=== PATIENT | female | born 1995 | race Caucasian/White ===

== ENCOUNTER → 2020-08-18 | Outpatient (REF) | payer BC ==
[2020-08-18 15:20] LABS: HEMOGLOBIN 11.5 g/dl (12.0-15.5); MEAN CORPUSCULAR HEMOGLOBIN 28.8 pg (27.0-33.0); MEAN CORPUSCULAR HGB CONC 32.9 g/dl (32.0-36.5); MEAN CORPUSCULAR VOLUME 87.7 fl (80.0-96.0); PLATELET COUNT, AUTOMATED 210 10^3/uL (150-450); RED BLOOD COUNT 3.99 10^6/uL (4.00-5.40); WHITE BLOOD COUNT 8.1 10^3/uL (4.0-10.0)
[2020-08-18 16:36] LABS: HEPATITIS C VIRUS ABY INDEX < 0.0 INDEX (<0.8); HIV 1&2 SCREEN CENTAUR NEGATIVE (NEGATIVE)
[2020-08-18 16:50] LABS: CHLAMYDIA DNA AMPLIFICATION NEGATIVE (NEGATIVE); GC DNA AMPLIFICATION NEGATIVE (NEGATIVE)
== END ==
LOC: M PLALAB 12:38
PROVIDERS: ATTEND Advanced Practice Midwife
DX: O99.211 Obesity complicating pregnancy, first trimester (principal); Z3A.00 Weeks of gestation of pregnancy not specified

== ENCOUNTER → 2020-08-28 | Outpatient (REF) | payer BC | LOC: M SFHCWAGY 09:41 | PROVIDERS: ATTEND Advanced Practice Midwife | DX: O99.211 Obesity complicating pregnancy, first trimester (principal) ==

== ENCOUNTER → 2020-09-02 | Outpatient (CLI) | payer BC | LOC: M PLALAB 13:10 | PROVIDERS: ATTEND Advanced Practice Midwife | DX: Z34.81 Encounter for supervision of other normal pregnancy, first trimester (principal); Z3A.00 Weeks of gestation of pregnancy not specified ==

== ENCOUNTER 2020-09-05 12:31 | Emergency (ER) | payer BC ==
[~2020-09-05] VITALS: Ht 165.1 cm; Wt 93.2 kg
[2020-09-05] MEDS ORDERED: NS 1,000 ML IV SCH (13:25)
[2020-09-05 14:02] LABS: BASO % 0.2 % (0.0-1.0); EOS % 0.4 % (0.0-3.0); HEMOGLOBIN 11.1 g/dl (12.0-15.5); LYMPH # 1.9 10^3/uL (1.5-5.0); LYMPH % 21.2 % (24.0-44.0); MEAN CORPUSCULAR HEMOGLOBIN 29.4 pg (27.0-33.0); MEAN CORPUSCULAR HGB CONC 33.6 g/dl (32.0-36.5); MEAN CORPUSCULAR VOLUME 87.3 fl (80.0-96.0); MONO # 0.5 10^3/uL (0.0-0.8); MONO % 5.7 % (2.0-8.0); NEUTROPHILS # 6.6 10^3/uL (1.5-8.5); NEUTROPHILS % 72.1 % (36.0-66.0); PLATELET COUNT, AUTOMATED 196 10^3/uL (150-450); RED BLOOD COUNT 3.78 10^6/uL (4.00-5.40); WHITE BLOOD COUNT 9.1 10^3/uL (4.0-10.0)
[2020-09-05] MEDS ORDERED: METO1TAB32 PO (14:05)
--- NOTE | 2020-09-05 14:18 | REP ---
INDICATION: preg chest pain eval for DVT COMPARISON: None. TECHNIQUE: Maldonado scale and color Doppler evaluation using linear high frequency transducer. FINDINGS: Ultrasound examination of the right and left lower extremity deep venous structures from the common femoral vein through the calf/ankle to include the peroneal, and tibial veins demonstrates normal compressibility flow and wave patterns in response to respiration and augmentation. There is no evidence for deep venous thrombosis. IMPRESSION: No evidence for deep venous thrombosis. <Electronically signed by Juan Jaimes > 09/05/20 [id number]
[2020-09-05 14:31] LABS: ALBUMIN 3.1 GM/DL (3.2-5.2); ALT/SGPT 36 U/L (12-78); BILIRUBIN,DIRECT 0.2 MG/DL (0.0-0.2); BILIRUBIN,TOTAL 0.4 MG/DL (0.2-1.0); BLOOD UREA NITROGEN 5 MG/DL (7-18); CALCIUM LEVEL 8.7 MG/DL (8.5-10.1); CARBON DIOXIDE LEVEL 23 MEQ/L (21-32); CHLORIDE LEVEL 107 MEQ/L (98-107); CK-MB VALUE MASS < 1.0 NG/ML (<3.6); CPK CREATINE PHOSPHOKINASE 30 U/L (26-192); CREATININE FOR GFR 0.44 MG/DL (0.55-1.30); FREE T4 1.31 NG/DL (0.76-1.46); GLOMERULAR FILTRATION RATE > 60.0 (>60); GLUCOSE, FASTING 74 MG/DL (70-100); MB/CK RELATIVE INDEX 3.33 (< OR =4); POTASSIUM SERUM 3.6 MEQ/L (3.5-5.1); SODIUM LEVEL 140 MEQ/L (136-145); THYROID STIMULATING HORMONE 0.247 uIU/ML (0.358-3.740); TOTAL PROTEIN 6.7 GM/DL (6.4-8.2); TROPONIN I < 0.02 NG/ML (< 0.10)
[2020-09-05 15:16] VITALS: BP 117/62
--- NOTE | 2020-09-05 20:28 | ECGEPIP ---
[facility] - ED Test Date: 2020-09-05 Pat Name: IMELDA EWING Department: Room: - Gender: Female Hspt Tutor: JOSE ANTONIO : 1995 Requested By: STEPHANIE Finney Order Number: [id number] Reading MD: Aditya Hargrove Measurements Intervals [place] Rate: 68 P: 37 WA: 156 QRS: 29 QRSD: 92 T: 20 QT: 412 QTc: 438 Interpretive Statements Normal sinus rhythm BENIGN EARLY REPOLARIZATION NONSPECIFIC T WAVE ABNORMALITY(S) NO PRIORS FOR COMPARISON Electronically Signed on 09-05-2020 20:28:11 EDT by Aditya Hargrove
== END 2020-09-05 15:35 | disposition home or self-care (01) ==
LOC: EDBD 12:31 → M ED 12:31
DX: O99.411 Diseases of the circulatory system complicating pregnancy, first trimester (principal); R00.2 Palpitations; Z3A.12 12 weeks gestation of pregnancy; Z88.6 Allergy status to analgesic agent

== ENCOUNTER → 2020-10-02 | Outpatient (REF) | payer BC ==
[~2020-10-02] MED LIST: ACET-683 PO; IRON65TA2 PO; METO1TAB32 PO; MM S100C PO; PRENTAB53 PO
== END ==
LOC: M SFHCWAGY 18:07
PROVIDERS: ATTEND Advanced Practice Midwife
DX: O99.212 Obesity complicating pregnancy, second trimester (principal); Z3A.00 Weeks of gestation of pregnancy not specified; E66.9 Obesity, unspecified

== ENCOUNTER → 2020-10-28 | Outpatient (CLI) | payer BC ==
[~2020-10-28] MED LIST changes: -ACET-683 PO; -IRON65TA2 PO; -MM S100C PO; -PRENTAB53 PO
--- NOTE | 2020-10-28 15:39 | REP ---
INDICATION: ANATOMY/MIKE 03/18/21 COMPARISON: None. TECHNIQUE: Transabdominal obstetrical ultrasound with color Doppler evaluation. FINDINGS: Examination demonstrates a single live intrauterine in cephalic presentation. motion is identified by technologist. Placenta is noted posterior and grade 1 without evidence for placenta previa or abruption. Amniotic fluid volume is normal. Cervix measures 5.2 cm in length and appears closed.. Selected gestational age: 19 weeks 6 days with MIKE 03/18/2021. Gestational age by current measurements 20 weeks 2 days with MIKE 03/15/2021. FHR equals 158 beats per minute. BPD: 4.9 cm at 20 weeks 6 days HC: 18.3 cm at 20 weeks 5 days AC: 14.5 cm at 19 weeks 6 days FL: 3.2 cm at 19 weeks 6 days HL: 3.2 cm at 20 weeks 3 days HC/AC: 1.26 Estimated weight 322 grams (50thpercentile). Anatomical assessment demonstrates normal structures including cranium, choroid plexus, cavum, cerebellum/posterior fossa, facial features, lungs, diaphragm, stomach, cord insertion/three-vessel cord, kidneys/bladder, and extremities. Limited evaluation of the heart/ventricular outflow tracts and spine due to positioning. IMPRESSION: Single live intrauterine in cephalic presentation demonstrating appropriate estimated weight. Anatomical limitations as noted above may warrant re-evaluation and follow-up. <Electronically signed by Juan Jaimes > 10/28/20 [id number]
== END ==
LOC: M WHC 13:45
PROVIDERS: ATTEND Advanced Practice Midwife
DX: O99.212 Obesity complicating pregnancy, second trimester (principal); Z3A.20 20 weeks gestation of pregnancy

== ENCOUNTER 2020-11-01 08:41 | Emergency (ER) | payer BC ==
[~2020-11-01] VITALS: Ht 165.1 cm; Wt 92.5 kg
[2020-11-01] MEDS ORDERED: PRENTAB53 PO (08:59)
--- NOTE | 2020-11-01 09:30 | REP ---
INDICATION: crush injury/pain COMPARISON: None. TECHNIQUE: AP, lateral, bilateral oblique views left wrist. FINDINGS: The carpal bones, surrounding osseous structures, soft tissues, and joint spaces are normal. There is no evidence for acute fracture or dislocation. No subcutaneous emphysema or radiodense foreign body. IMPRESSION: No acute fracture or dislocation. <Electronically signed by Juan Jaimes > 11/01/20 [id number]
[2020-11-01 11:20] VITALS: BP 112/70
== END 2020-11-01 11:22 | disposition home or self-care (01) ==
LOC: M ED 08:41
DX: S63.92XA Sprain of unspecified part of left wrist and hand, initial encounter (principal); W01.0XXA Fall on same level from slipping, tripping and stumbling without subsequent striking against object, initial encounter; Y92.009 Unspecified place in unspecified non-institutional (private) residence as the place of occurrence of the external cause; Y93.9 Activity, unspecified; Y99.9 Unspecified external cause status; Z88.6 Allergy status to analgesic agent; Z79.899 Other long term (current) drug therapy

== ENCOUNTER → 2020-11-04 | Outpatient (CLI) | payer BC ==
[~2020-11-04] MED LIST changes: +PRENTAB53 PO
[2020-11-04 17:46] LABS: FREE T4 1.09 NG/DL (0.76-1.46); THYROID STIMULATING HORMONE 0.737 uIU/ML (0.358-3.740)
== END ==
LOC: M PLALAB 15:30
PROVIDERS: ATTEND Advanced Practice Midwife
DX: R00.2 Palpitations (principal)

== ENCOUNTER → 2020-11-18 | Outpatient (CLI) | payer BC ==
--- NOTE | 2020-11-18 09:12 | REP ---
INDICATION: F/U ANATOMY COMPARISON: 10/29/2019 TECHNIQUE: Transabdominal obstetrical ultrasound with color Doppler evaluation. FINDINGS: Examination demonstrates a single live intrauterine in cephalic presentation. motion is identified by technologist. Placenta is noted posterior and grade without evidence for placenta previa or abruption. Amniotic fluid volume is normal. Cervix measures 4.9 cm in length and appears closed.. Selected gestational age: 22 weeks 6 days with MIKE 03/18/2021. Gestational age by current measurements 24 weeks 3 days with MIKE 03/07/2021. FHR equals 144 beats per minute. Estimated weight 708 grams (greater than 97thpercentile). Anatomical assessment demonstrates normal structures including heart/ventricular outflow tracts and spine. IMPRESSION: Single live intrauterine in cephalic presentation demonstrating greater than expected interval growth based on selected age. In conjunction with prior examination anatomical assessment is complete and normal. <Electronically signed by Juan Jaimes > 11/18/20 [id number]
== END ==
LOC: M WHC 08:11
PROVIDERS: ATTEND Advanced Practice Midwife
DX: Z34.92 Encounter for supervision of normal pregnancy, unspecified, second trimester (principal); Z3A.22 22 weeks gestation of pregnancy

== ENCOUNTER 2020-11-21 17:47 | Emergency (ER) | payer BC ==
[~2020-11-21] VITALS: Ht 165.1 cm; Wt 92.3 kg
[2020-11-21 18:57] LABS: BASO % 0.1 % (0.0-1.0); EOS # 0.1 10^3/uL (0.0-0.5); EOS % 0.5 % (0.0-3.0); HEMATOCRIT 29.4 % (36.0-47.0); LYMPH # 2.2 10^3/uL (1.5-5.0); LYMPH % 20.9 % (24.0-44.0); MEAN CORPUSCULAR VOLUME 88.3 fl (80.0-96.0); MONO # 0.6 10^3/uL (0.0-0.8); MONO % 5.8 % (2.0-8.0); NEUTROPHILS # 7.5 10^3/uL (1.5-8.5); NEUTROPHILS % 72.2 % (36.0-66.0); PLATELET COUNT, AUTOMATED 193 10^3/uL (150-450); RED BLOOD COUNT 3.33 10^6/uL (4.00-5.40); WHITE BLOOD COUNT 10.4 10^3/uL (4.0-10.0)
[2020-11-21 19:32] LABS: BLOOD UREA NITROGEN 6 MG/DL (7-18); CALCIUM LEVEL 8.5 MG/DL (8.5-10.1); CARBON DIOXIDE LEVEL 22 MEQ/L (21-32); CHLORIDE LEVEL 110 MEQ/L (98-107); CREATININE FOR GFR 0.39 MG/DL (0.55-1.30); FREE T4 1.09 NG/DL (0.76-1.46); GLOMERULAR FILTRATION RATE > 60.0 (>60); GLUCOSE, FASTING 86 MG/DL (70-100); MAGNESIUM LEVEL 1.9 MG/DL (1.8-2.4); POTASSIUM SERUM 3.6 MEQ/L (3.5-5.1); SODIUM LEVEL 140 MEQ/L (136-145); THYROID STIMULATING HORMONE 0.714 uIU/ML (0.358-3.740)
[2020-11-21 19:45] VITALS: BP 105/62
== END 2020-11-21 20:07 | disposition home or self-care (01) ==
LOC: M ED 17:47
DX: O99.412 Diseases of the circulatory system complicating pregnancy, second trimester (principal); R00.2 Palpitations; R00.0 Tachycardia, unspecified; Z3A.23 23 weeks gestation of pregnancy; Z88.6 Allergy status to analgesic agent; Z79.899 Other long term (current) drug therapy

== ENCOUNTER → 2020-12-16 | Outpatient (CLI) | payer BC ==
[2020-12-16 15:41] LABS: HEMATOCRIT 30.4 % (36.0-47.0); HEMOGLOBIN 10.5 g/dl (12.0-15.5); MEAN CORPUSCULAR HEMOGLOBIN 30.5 pg (27.0-33.0); MEAN CORPUSCULAR HGB CONC 34.5 g/dl (32.0-36.5); MEAN CORPUSCULAR VOLUME 88.4 fl (80.0-96.0); PLATELET COUNT, AUTOMATED 211 10^3/uL (150-450); RED BLOOD COUNT 3.44 10^6/uL (4.00-5.40); WHITE BLOOD COUNT 11.1 10^3/uL (4.0-10.0)
[2020-12-16 16:32] LABS: GC DNA AMPLIFICATION NEGATIVE (NEGATIVE)
== END ==
LOC: M LAB 11:14
PROVIDERS: ATTEND Obstetrics & Gynecology
DX: O99.212 Obesity complicating pregnancy, second trimester (principal); Z3A.00 Weeks of gestation of pregnancy not specified; E66.9 Obesity, unspecified

== ENCOUNTER 2021-01-13 21:50 | Emergency (ER) | payer BC, OTHER ==
[~2021-01-13] VITALS: Ht 165.1 cm; Wt 93.3 kg
[2021-01-13 21:52] VITALS: BP 112/71
--- OUTSIDE RECORDS SUMMARY | 2021-01-13 22:00 | CCD ---
Author Author [facility] Organization [facility] Address Unknown Phone Unavailable Care Team Providers Care Director Of Income Tax Name Role Phone Patricia DOMINGUEZ MD Unavailable Unavailable Patricia DOMINGUEZ MD Unavailable Unavailable Patricia DOMINGUEZ MD Unavailable Unavailable Patricia DOMINGUEZ MD Unavailable Unavailable Patricia DOMINGUEZ MD Unavailable Unavailable Patricia DOMINGUEZ MD Unavailable Unavailable Patricia DOMINGUEZ MD Unavailable Unavailable Patricia DOMINGUEZ MD Unavailable Unavailable Patricia DOMINGUEZ MD Unavailable Unavailable Patricia DOMINGUEZ MD Unavailable Unavailable Patricia DOMINGUEZ MD Unavailable Unavailable Patricia DOMINGUEZ MD Unavailable Unavailable Patricia DOMINGUEZ MD Unavailable Unavailable Patricia DOMINGUEZ MD Unavailable Unavailable Patricia DOMINGUEZ MD Unavailable Unavailable Patricia DOMINGUEZ MD Unavailable Unavailable Patricia DOMINGUEZ MD Unavailable Unavailable Patricia DOMINGUEZ MD Unavailable Unavailable Patricia DOMINGUEZ MD Unavailable Unavailable Patricia DOMINGUEZ MD Unavailable Unavailable Patricia DOMINGUEZ MD Unavailable Unavailable Patricia DOMINGUEZ MD Unavailable Unavailable Patricia DOMINGUEZ MD Unavailable Unavailable Patricia DOMINGUEZ MD Unavailable Unavailable Patricia DOMINGUEZ MD Unavailable Unavailable Patricia DOMINGUEZ MD Unavailable Unavailable Patricia DOMINGUEZ MD Unavailable Unavailable Patricia DOMINGUEZ MD Unavailable Unavailable ANGELICA, J DONNA HUGO Unavailable Unavailable ANGELICA, J DONNA HUGO Unavailable Unavailable ANGELICA, J DONNA HUGO Unavailable Unavailable ANGELICA, J DONNA HUGO Unavailable Unavailable ANGELICA, J DONNA HUGO Unavailable Unavailable ANGELICA, J DONNA HUGO Unavailable Unavailable ANGELICA, J DONNA HUGO Unavailable Unavailable ANGELICA, J DONNA HUGO Unavailable Unavailable ANGELICA, J DONNA HUGO Unavailable Unavailable ANGELICA, J DONNA HUGO Unavailable Unavailable ANGELICA, J DONNA HUGO Unavailable Unavailable ANGELICA, J DONNA HUGO Unavailable Unavailable ANGELICA, J DONNA HUGO Unavailable Unavailable ANGELICA, J DONNA HUGO Unavailable Unavailable ANGELICA, J DONNA HUGO Unavailable Unavailable ANGELICA, J DONNA HUGO Unavailable Unavailable ANGELICA, J DONNA HUGO Unavailable Unavailable ANGELICA, J DONNA HUGO Unavailable Unavailable ANGELICA, J DONNA HUGO Unavailable Unavailable ANGELICA, J DONNA HUGO Unavailable Unavailable ANGELICA, J DONNA HUGO Unavailable Unavailable ANGELICA, J DONNA HUGO Unavailable Unavailable ANGELICA, J DONNA HUGO Unavailable Unavailable ANGELICA, J DONNA HUGO Unavailable Unavailable ANGELICA, J DONNA HUGO Unavailable Unavailable ANGELICA, J DONNA HUGO Unavailable Unavailable ANGELICA, J DONNA HUGO Unavailable Unavailable ANGELICA, J DONNA HUGO Unavailable Unavailable ANGELICA, J DONNA HUGO Unavailable Unavailable ANGELICA, J DONNA HUGO Unavailable Unavailable ANGELICA, J DONNA HUGO Unavailable Unavailable ANGELICA, J DONNA HUGO Unavailable Unavailable ANGELICA, J DONNA HUGO Unavailable Unavailable ANGELICA, J DONNA HUGO Unavailable Unavailable ANGELICA, J DONNA HUGO Unavailable Unavailable ANGELICA, J DONNA HUGO Unavailable Unavailable ANGELICA, J DONNA HUGO Unavailable Unavailable ANGELICA, J DONNA HUGO Unavailable Unavailable ANGELICA, J DONNA HUGO Unavailable Unavailable ANGELICA, J DONNA HUGO Unavailable Unavailable ANGELICA, J DONNA UHGO Unavailable Unavailable ANGELICA, Patricia THOMPSON MD Unavailable Unavailable ANGELICA, J DONNA HUGO Unavailable Unavailable ANGELICA, J DONNA HUGO Unavailable Unavailable ANGELICA, J DONNA HUGO Unavailable Unavailable ANGELICA, J DONNA HUGO Unavailable Unavailable ANGELICA, Patricia THOMPSON MD Unavailable Unavailable ANGELICA, Patricia THOMPSON MD Unavailable Unavailable ANGELICA, Patricia THOMPSON MD Unavailable Unavailable ANGELICA, Patricia THOMPSON MD Unavailable Unavailable Sumanth Jo MD Unavailable Unavailable Sumanth Jo MD Unavailable Unavailable Sumanth Jo MD Unavailable Unavailable Sumanth Jo MD Unavailable Unavailable Deysi, Magendra MD Unavailable Unavailable Deysi, Magendra MD Unavailable Unavailable Deysi, Magendra MD Unavailable Unavailable Deysi, Magendra MD Unavailable Unavailable DeysiMeagan mezandra MD Unavailable Unavailable DeysiMeaganndra MD Unavailable Unavailable DeysiMeaganndra MD Unavailable Unavailable Deysi, Magendra MD Unavailable Unavailable Deysi, Magendra MD Unavailable Unavailable Deysi, Magendra MD Unavailable Unavailable Deysi, Magendra MD Unavailable Unavailable Deysi, Magendra MD Unavailable Unavailable Deysi, Meaganndra MD Unavailable Unavailable Deysi, Magendra MD Unavailable Unavailable Deysi, Magendra MD Unavailable Unavailable Deysi, Magendra MD Unavailable Unavailable Deysi, Meaganndra MD Unavailable Unavailable DeysiMeagan mezandra MD Unavailable Unavailable DeysiMeagan mezandra MD Unavailable Unavailable DeysiMeagan mezandra MD Unavailable Unavailable DeysiMeagan mezandra MD Unavailable Unavailable Deysi, Magendra MD Unavailable Unavailable DeysiMeagan mezandra MD Unavailable Unavailable DeysiMeagan mezandra MD Unavailable Unavailable DeysiMeagan mezandra MD Unavailable Unavailable DeysiMeagan mezandra MD Unavailable Unavailable DeysiMeagan mezandra MD Unavailable Unavailable DeysiMeagan mezandra MD Unavailable Unavailable DeysiMeagan mezandra MD Unavailable Unavailable DeysiMeagan mezandra MD Unavailable Unavailable DeysiMeagan mezandra MD Unavailable Unavailable DeysiMeagan mezandra MD Unavailable Unavailable DeysiMeagan mezandra MD Unavailable Unavailable DeysiMeagan mezandra MD Unavailable Unavailable DeysiMeagan mezandra MD Unavailable Unavailable DeysiMeagan mezandra MD Unavailable Unavailable Deysi, Meaganndra MD Unavailable Unavailable Deysi, Meaganndra MD Unavailable Unavailable Deysi, Magendra MD Unavailable Unavailable Deysi, Magendra MD Unavailable Unavailable Deysi, Magendra MD Unavailable Unavailable [place], Janna DO Unavailable Unavailable [place], Janna DO Unavailable Unavailable [place], Janna DO Unavailable Unavailable [place], Janna DO Unavailable Unavailable Nikki, M Sina DO Unavailable Unavailable Nikki, M Sina DO Unavailable Unavailable Nikki, M Sina DO Unavailable Unavailable Nikki, M Sina DO Unavailable Unavailable Nikki, M Sina DO Unavailable Unavailable Nikki, M Sina DO Unavailable Unavailable Nikki, M Sina DO Unavailable Unavailable Nikki, M Sina DO Unavailable Unavailable Nikki, M Sina DO Unavailable Unavailable Nikki, Temo Andino DO Unavailable Unavailable Nikki, Temo Anneel DO Unavailable Unavailable Nikki, Temo Anneel DO Unavailable Unavailable Nikki, Temo Sina DO Unavailable Unavailable Nikki, Temo Sina DO Unavailable Unavailable Nikki, Temo Sina DO Unavailable Unavailable Nikki, Temo Sina DO Unavailable Unavailable Gina Rivera, GALLERY OR MUSEUM GUIDE-C Unavailable Unavailable Maring, Bereket PA Unavailable Unavailable Maring, Bereket PA Unavailable Unavailable Maring, Bereket PA Unavailable Unavailable Maring, Bereekt PA Unavailable Unavailable Maring, Bereket PA Unavailable Unavailable Maring, Bereket PA Unavailable Unavailable Maring, Bereket PA Unavailable Unavailable Maring, Bereket PA Unavailable Unavailable Maring, Bereket PA Unavailable Unavailable Maring, Bereket PA Unavailable Unavailable Maring, Bereket PA Unavailable Unavailable Maring, Bereket PA Unavailable Unavailable Maring, Bereket PA Unavailable Unavailable Maring, Bereket PA Unavailable Unavailable Maring, Bereket PA Unavailable Unavailable Maring, Bereket PA Unavailable Unavailable Sascha Hoffman MD Unavailable Unavailable Sascha Hoffman MD Unavailable Unavailable NOSTROM, JUVE ER MEDICAL TECHNICIAN Unavailable Unavailable NOSTROM, JUVE ER MEDICAL TECHNICIAN Unavailable Unavailable NOSTROM, JUVE ER MEDICAL TECHNICIAN Unavailable Unavailable NOSTROM, JUVE ER MEDICAL TECHNICIAN Unavailable Unavailable NOSTROM, JUVE ER MEDICAL TECHNICIAN Unavailable Unavailable NOSTROM, JUVE ER MEDICAL TECHNICIAN Unavailable Unavailable NOSTROM, JUVE ER MEDICAL TECHNICIAN Unavailable Unavailable NOSTROM, JUVE ER MEDICAL TECHNICIAN Unavailable Unavailable NOSTROM, JUVE ER MEDICAL TECHNICIAN Unavailable Unavailable NOSTROM, JUVE ER MEDICAL TECHNICIAN Unavailable Unavailable NOSTROM, JUVE ER MEDICAL TECHNICIAN Unavailable Unavailable NOSTROM, JUVE ER MEDICAL TECHNICIAN Unavailable Unavailable NOSTROM, JUVE ER MEDICAL TECHNICIAN Unavailable Unavailable Zeynep GARAY MD Unavailable Unavailable Zeynep GARAY MD Unavailable Unavailable Zeynep GARAY MD Unavailable Unavailable Zeynep GARAY MD Unavailable Unavailable Zeynep GARAY MD Unavailable Unavailable Zeynep GARAY MD Unavailable Unavailable Zeynep GARAY MD Unavailable Unavailable Zeynep GARAY MD Unavailable Unavailable Zeynep GARAY MD Unavailable Unavailable Zeynep GARAY MD Unavailable Unavailable Zeynep GARAY MD Unavailable Unavailable Zeynep GARAY MD Unavailable Unavailable Zeynep GARAY MD Unavailable Unavailable Zeynep GARAY MD Unavailable Unavailable Zeynep GARAY MD Unavailable Unavailable Zeynep GARAY MD Unavailable Unavailable Zeynep GARAY MD Unavailable Unavailable Zeynep GARAY MD Unavailable Unavailable Zeynep GARAY MD Unavailable Unavailable Zeynep GARAY MD Unavailable Unavailable Zeynep GARAY MD Unavailable Unavailable Zeynep GARAY MD Unavailable Unavailable Zeynep GARAY MD Unavailable Unavailable Zeynep GARAY MD Unavailable Unavailable Feola, T Xuan PA Unavailable Unavailable Feola, T Xuan PA Unavailable Unavailable Feola, T Xuan PA Unavailable Unavailable Feola, T Xuan PA Unavailable Unavailable Feola, T Xuan PA Unavailable Unavailable Feola, T Xuan PA Unavailable Unavailable Feola, T Xuan PA Unavailable Unavailable Feola, T Xuan PA Unavailable Unavailable Feola, T Xuan PA Unavailable Unavailable Feola, T Xuan PA Unavailable Unavailable Feola, T Xuan PA Unavailable Unavailable Feola, T Xuan PA Unavailable Unavailable Feola, T Xuan PA Unavailable Unavailable Feola, T Xuan PA Unavailable Unavailable Feola, T Xuan PA Unavailable Unavailable Feola, T Xuan PA Unavailable Unavailable Feola, T Xuan PA Unavailable Unavailable Feola, T Xuan PA Unavailable Unavailable Feola, T Xuan PA Unavailable Unavailable Feola, T Xuan PA Unavailable Unavailable Feola, T Xuan PA Unavailable Unavailable Feola, T Xuan PA Unavailable Unavailable Feola, T Xuan PA Unavailable Unavailable Feola, T Xuan PA Unavailable Unavailable Feola, T Xuan PA Unavailable Unavailable Feola, T Xuan PA Unavailable Unavailable Feola, T Xuan PA Unavailable Unavailable Feola, T Xuan PA Unavailable Unavailable Feola, T Xuan PA Unavailable Unavailable Feola, T Xuan PA Unavailable Unavailable Feola, T Xuan PA Unavailable Unavailable Feola, T Xuan PA Unavailable Unavailable Feola, T Xuan PA Unavailable Unavailable Feola, T Xuan PA Unavailable Unavailable Feola, T Xuan PA Unavailable Unavailable Feola, T Xuan PA Unavailable Unavailable Feola, T Xuan PA Unavailable Unavailable Feola, T Xuan PA Unavailable Unavailable Feola, T Xuan PA Unavailable Unavailable Feola, T Xuan PA Unavailable Unavailable Feola, T Xuan PA Unavailable Unavailable Frank Arora MD Unavailable Unavailable Frank Arora MD Unavailable Unavailable Frank Arora MD Unavailable Unavailable Frank Arora MD Unavailable Unavailable Frank Arora MD Unavailable Unavailable Frank Arora MD Unavailable Unavailable CicheFrank paige MD Unavailable Unavailable CichettFrank gonzalez MD Unavailable Unavailable CichettFrank gonzalez MD Unavailable Unavailable CichettFrank gonzalez MD Unavailable Unavailable CichettFrank gonzalze MD Unavailable Unavailable CichettFrank gonzalez MD Unavailable Unavailable CichettFrank gonzalez MD Unavailable Unavailable CichettFrank gonzalez MD Unavailable Unavailable CichettFrank gonzalez MD Unavailable Unavailable CichettFrank gonzalez MD Unavailable Unavailable CichettFrank gonzalez MD Unavailable Unavailable CichettFrank gonzalez MD Unavailable Unavailable CichettFrank gonzalez MD Unavailable Unavailable CichettFrank gonzalez MD Unavailable Unavailable CichettFrank gonzalez MD Unavailable Unavailable CichettFrank gonzalez MD Unavailable Unavailable CichettFrank gonzalez MD Unavailable Unavailable CichettFrank gonzalez MD Unavailable Unavailable CichettFrank gonzalez MD Unavailable Unavailable CichettFrank gonzalez MD Unavailable Unavailable CichettFrank gonzalez MD Unavailable Unavailable CichettFrank gonzalez MD Unavailable Unavailable CichettFrank gonzalez MD Unavailable Unavailable CicheFrank paige MD Unavailable Unavailable CichettFrank gonzalez MD Unavailable Unavailable CichettFrank gonzalez MD Unavailable Unavailable CichettFrank gonzalez MD Unavailable Unavailable CichettFrank gonzalez MD Unavailable Unavailable CichettFrank gonzalez MD Unavailable Unavailable CichettFrank gonzalez MD Unavailable Unavailable CichettFrank gonzalez MD Unavailable Unavailable CichettFrank gonzalez MD Unavailable Unavailable WITTY-CAMRNY, ARMIDA Unavailable Unavailable WITTY-CAMRYN, ARMIDA Unavailable Unavailable WITTY-CAMRYN, ARMIDA Unavailable Unavailable WITTY-CAMRYN, ARMIDA Unavailable Unavailable WITTY-CAMRYN, ARMIDA Unavailable Unavailable WITTY-CAMRYN, ARMIDA Unavailable Unavailable WITTY-CAMRYN, ARMIDA Unavailable Unavailable WITTY-CAMRYN, ARMIDA Unavailable Unavailable WITTY-CAMRYN, ARMIDA Unavailable Unavailable WITTY-CAMRYN, ARMIDA Unavailable Unavailable WITTY-CAMRYN, ARMIDA Unavailable Unavailable WITTY-CAMRYN, ARMIDA Unavailable Unavailable WITTY-CAMRYN, ARMIDA Unavailable Unavailable WITTY-CAMRYN, ARMIDA Unavailable Unavailable WITTY-CAMRYN, ARMIDA Unavailable Unavailable WITTY-CAMRYN, ARMIDA Unavailable Unavailable WITTY-CAMRYN, ARMIDA Unavailable Unavailable WITTY-CAMRYN ARIMDA Unavailable Unavailable WITTY-CAMRYN ARMIDA Unavailable Unavailable WITTY-CAMRYN, ARMIDA Unavailable Unavailable ARMIDA MENDOZA Unavailable Unavailable Marissa Nicholson MD Unavailable Unavailable Marissa Nicholson MD Unavailable Unavailable Marissa Nicholson MD Unavailable Unavailable Marissa Nicholson MD Unavailable Unavailable Marissa Nicholson MD Unavailable Unavailable Marissa Nicholson MD Unavailable Unavailable Marissa Nicholson MD Unavailable Unavailable Marissa Nicholson MD Unavailable Unavailable Marissa Nicholson MD Unavailable Unavailable Marissa Nicholson MD Unavailable Unavailable Marissa Nicholson MD Unavailable Unavailable Marissa Nicholson MD Unavailable Unavailable Marissa Nicholson MD Unavailable Unavailable Marissa Nicholson MD Unavailable Unavailable Marissa Nicholson MD Unavailable Unavailable Marissa Nicholson MD Unavailable Unavailable Marissa Nicholson MD Unavailable Unavailable Marissa Nicholson MD Unavailable Unavailable Marissa Nicholson MD Unavailable Unavailable Marissa Nicholson MD Unavailable Unavailable Marissa Nicholson MD Unavailable Unavailable Marissa Nicholson MD Unavailable Unavailable Marissa Nicholson MD Unavailable Unavailable Marissa Nicholson MD Unavailable Unavailable Marissa Nicholson MD Unavailable Unavailable Marissa Nicholson MD Unavailable Unavailable Marissa Nicholson MD Unavailable Unavailable Marissa Nicholson MD Unavailable Unavailable Marissa Nicholson MD Unavailable Unavailable Marissa Nicholson MD Unavailable Unavailable Marissa Nicholson MD Unavailable Unavailable Marissa Nicholson MD Unavailable Unavailable Marissa Nicholson MD Unavailable Unavailable Marissa Nicholson MD Unavailable Unavailable Marissa Nicholson MD Unavailable Unavailable Marissa Nicholson MD Unavailable Unavailable Marissa Nicholson MD Unavailable Unavailable Marissa Nicholson MD Unavailable Unavailable Marissa Nicholson MD Unavailable Unavailable Marissa Nicholson MD Unavailable Unavailable Marissa Nicholson MD Unavailable Unavailable Marissa Nicholson MD Unavailable Unavailable Marissa Nicholson MD Unavailable Unavailable Marissa Nicholson MD Unavailable Unavailable Marissa Nicholson MD Unavailable Unavailable Marissa Nicholson MD Unavailable Unavailable Marissa Nicholson MD Unavailable Unavailable Marissa Nicholson MD Unavailable Unavailable Marissa Nicholson MD Unavailable Unavailable Marissa Nicholson MD Unavailable Unavailable Marissa Nicholson MD Unavailable Unavailable Marissa Nicholson MD Unavailable Unavailable Marissa Nicholson MD Unavailable Unavailable Marissa Nicholson MD Unavailable Unavailable Marissa Nicholson MD Unavailable Unavailable Marissa Nicholson MD Unavailable Unavailable Marissa Nicholson MD Unavailable Unavailable Marissa Nicholson MD Unavailable Unavailable Marissa Nicholson MD Unavailable Unavailable Sienkiewycz, L Gina ER MEDICAL TECHNICIAN Unavailable Unavailable Sienkiewycz, L Gina ER MEDICAL TECHNICIAN Unavailable Unavailable Sienkiewycz, L Gina ER MEDICAL TECHNICIAN Unavailable Unavailable Sienkiewycz, L Gina ER MEDICAL TECHNICIAN Unavailable Unavailable Sienkiewycz, L Gina ER MEDICAL TECHNICIAN Unavailable Unavailable Sienkiewycz, L Gina ER MEDICAL TECHNICIAN Unavailable Unavailable Sienkiewycz, L Gina ER MEDICAL TECHNICIAN Unavailable Unavailable Franklinton, V BARBARA PA-C Unavailable Unavailable Celso, V BARBARA PA-C Unavailable Unavailable Franklinton, V BARBARA PA-C Unavailable Unavailable Franklinton, V BARBARA PA-C Unavailable Unavailable Franklinton, V BARBARA PA-C Unavailable Unavailable Franklinton, V BARBARA PA-C Unavailable Unavailable Franklinton, V BARBARA PA-C Unavailable Unavailable Franklinton, V BARBARA PA-C Unavailable Unavailable Franklinton, V BARBARA PA-C Unavailable Unavailable Celso, V BARBARA PA-C Unavailable Unavailable Celso, V BARBARA PA-C Unavailable Unavailable Franklinton, V BARBARA PA-C Unavailable Unavailable Franklinton, V BARBARA PA-C Unavailable Unavailable Franklinton, V BARBARA PA-C Unavailable Unavailable Patricia ANDRE DO Unavailable Unavailable Patricia ANDRE DO Unavailable Unavailable Patricia ANDRE DO Unavailable Unavailable Patricia ANDRE DO Unavailable Unavailable Patricia ANDRE DO Unavailable Unavailable Patricia ANDRE DO Unavailable Unavailable Patricia ANDRE DO Unavailable Unavailable Patricia ANDRE DO Unavailable Unavailable Patricia ANDRE DO Unavailable Unavailable Patricia ANDRE DO Unavailable Unavailable Patricia ANDRE DO Unavailable Unavailable Re-disclosure Warning The records that you are about to access may contain information from federally-assisted alcohol or drug abuse programs. If such information is present, then the following federally mandated warning applies: This information has been disclosed to you from records protected by federal confidentiality rules (42 CFR part 2). The federal rules prohibit you from making any further disclosure of this information unless further disclosure is expressly permitted by the written consent of the person to whom it pertains or as otherwise permitted by 42 CFR part 2. A general authorization for the release of medical or other information is NOT sufficient for this purpose. The Federal rules restrict any use of the information to criminally investigate or prosecute any alcohol or drug abuse patient.The records that you are about to access may contain highly sensitive health information, the redisclosure of which is protected by Article 27-F of the [facility] Public Health law. If you continue you may have access to information: Regarding HIV / AIDS; Provided by facilities licensed or operated by the [facility] Office of Mental Health; or Provided by the [facility] Office for People With Developmental Disabilities. If such information is present, then the following [facility] mandated warning applies: This information has been disclosed to you from confidential records which are protected by state law. State law prohibits you from making any further disclosure of this information without the specific written consent of the person to whom it pertains, or as otherwise permitted by law. Any unauthorized further disclosure in violation of state law may result in a fine or [place] [facility] sentence or both. A general authorization for the release of medical or other information is NOT sufficient authorization for further disc losure. Allergies and Adverse Reactions Type Description Substance Reaction Status Data Source(s ) Propensity to adverse reactions NSAIDS Nsaids Acti ve [facility] Encounters Encounter Providers Location Date Indications Data Source(s ) Outpatient Attender: Marissa SCHROEDER.ANN MARIE-SJP.ANN MARIE 11/06 02:50:21 PM EDT - 11/26/2020 08:17:13 AM EDT [facility] Outpatient Attender: BAY GARAY MD 11/14 06:47:30 PM EDT - 11/14/2020 07:39:57 PM EDT [facility] ([facility] ) Outpatient 11/01/2020 08:26:15 AM EDT [facility] ([facility]) Outpatient Attender: BARBARA GARAYANN MARIE-SJP.ANN MARIE 12/2020 12:00:00 AM EDT - 10/14/2020 01:40:11 PM EDT [facility] Outpatient Referrer: Marissa GARAYCT-SJP.SYR 09/05 12:00:00 AM EDT [facility] Outpatient Attender: Marissa Nicholson MDConsultant: Paul GARAYANN MARIE-SJP.ANN MARIE 09/25/2020 09:09:37 AM EDT - 09/25/2020 10:28:26 AM EDT [facility] Outpatient Attender: Bereket ABDUL 09/25/19 03:07:19 PM EDT - 09/24/2020 03:41:07 PM EDT [facility] ([facility] ) Outpatient Attender: BAY GARAY MD 08/22 04:16:27 PM EDT - 08/22/2020 04:55:18 PM EDT [facility] ([facility] ) Outpatient Attender: Raad Arora MD SURG-NPLAB 07/31/2020 12:43:00 PM EDT [facility] Outpatient Attender: Raad Arora MD SURG-NPLAB 07/31/2020 12:43:00 PM EDT [facility] Outpatient [address] [place] [address] [phone] 07/31/2020 12:00:00 AM EDT [facility]CW[facility] ([facility]) Outpatient [address] [place] [address] [phone] 07/31/2020 12:00:00 AM EDT eCW1 ([facility]) Outpatient [address] [place] [address] [phone] 07/22/2020 12:00:00 AM EDT eCW1 ([facility]) Outpatient Attender: uXan ABDUL 021 02:29:45 PM EDT - 07/03/2020 03:06:52 PM EDT [facility] ([facility] ) Outpatient [address] [place] [address] 1 [phone] 07/02/2020 12:00:00 AM EDT eCW1 ([facility]) (TELEFU) TELEFU [address] [place] [address] 1 [phone] 07/01/2020 12:00:00 AM EDT eCW1 ([facility]) Outpatient Attender: ABDULAZIZ ANDRE DO ED-LAB 06/03/2020 01 :03:00 PM EDT PRE EMPLOYMENT [facility] PRE EMPLOYMENT Outpatient [address] [place] [address] 1 [phone] 05/21/2020 12:00:00 AM EDT eCW1 ([facility]) Outpatient [address] [place] [address] 1 [phone] 04/22/2020 12:00:00 AM EST eCW1 ([facility]) (TELEFU) TELEFU [address] [place] [address] 1 [phone] 03/21/2020 12:00:00 AM EST eCW1 ([facility]) Outpatient [address] [place] [address] 1 [phone] 03/21/2020 12:00:00 AM EST eCW1 ([facility]) Outpatient Attender: Sina Jordan DO CPSCAORT-COVVACCPH 05:38:00 PM EST 2ND COVID VACCINE PFIZER [facility] 2ND COVID VACCINE PFIZER Outpatient [address] [place] [address] 1 [phone] 03/10/2020 12:00:00 AM EST eCW1 ([facility]) Outpatient Attender: Sumanth Jo MD [place] [facility] 08:45:00 AM EST [facility] (Sumanth Jo MD) Emergency Attender: JUVE CASTILLO ER MEDICAL TECHNICIAN Attender: Molly Hoffman MDAttender: Janna Sheriff DO CPSCAORT-ED 03/03/2020 04:32:00 PM EST - 03/03/2020 07:25:00 PM EST ALLERGIC REACTION [facility] ALLERGIC REACTION Patient discharged. Outpatient Attender: Sina Jordan DO CPSCAORT-COVVACCPH 05:21:00 PM EST 1ST COVID VACCINE PFIZER [facility] 1ST COVID VACCINE PFIZER Outpatient [address], [place] 1 [phone] 02/07/2020 12:00:00 AM EST eCW1 ([facility]) Outpatient Attender: HARRISON Galvan nder: Gina Rivera NP CPSCAORT-LABMASS 01/28/2020 03:07:00 PM EST EXPOSURE [facility] EXPOSURE Outpatient Attender: Gina Rivera ER MEDICAL TECHNICIAN SURG-NPLAB 01/28/2020 01:28:00 PM EST [facility] P Attender: Gina Rivera ER MEDICAL TECHNICIAN SURG-NPLAB 01/28/2020 12:0 0:00 AM EST [facility] Outpatient [address], [place] [phone] 01/28/2020 12:00:00 AM EST eCW1 ([facility]) Outpatient [address] [place] [address] 1 [phone] 01/28/2020 12:00:00 AM EST eCW1 ([facility]) Outpatient [address] [place] [address] 1 [phone] 01/28/2020 12:00:00 AM EST eCW1 ([facility]) [facility] [address] [phone] 01/28/2020 12:00:00 AM EST eCW1 ([facility]) Outpatient [address] [place] [address] 1 [phone] 01/17/2020 12:00:00 AM EST eCW1 ([facility]) Outpatient [address] [place] [address] 1 [phone] 12/06/2019 12:00:00 AM EDT eCW1 ([facility]) Outpatient [address] [place] [address] 1 [phone] 11/28/2019 12:00:00 AM EDT eCW1 ([facility]) Emergency Attender: Janna Sheriff DO CPSCAORT-ED 020 11:39:00 AM EDT - 11/26/2019 04:28:00 PM EDT PALPITATIONS [facility] PALPITATIONS Patient discharged. Outpatient [address], [place] [phone] 11/26/2019 12:00:00 AM EDT eCW1 ([facility]) Outpatient Attender: HARRISON Galvan nder: Gina Rivera NP CPSCAORT-LABMASS 08/15/2019 01:13:00 PM EDT - 08/15/2019 01:14:00 PM ED T COVID- 19 SCREENING [facility] COVID-19 SCREENING Patient discharged. Outpatient Attender: ARMIDA MENDOZAAttender: Ailyn Rivera NP [email or web address].LSS 08/15/2019 11:27:[address] [facility] Outpatient Attender: DONNA DOMINGUEZ MD CPSCAORT-LABPNP 07/06 06:16:00 PM EDT COVID 19 SCREENING [facility] COVID 19 SCREENING Outpatient Attender: DONNA DOMINGUEZ MD CPSCAORT-LABPNP 07/05 10:02:00 PM EDT COVID-19 SCREENING [facility] COVID-19 SCREENING Immunizations Vaccine Date Status Description Data Source(s) Pfizer Covid-19 03/19/2020 08:13:00 AM EST completed eCW1 ([facility]) Pfizer Covid-19 03/19/2020 08:13:00 AM EST completed eCW1 ([facility]) Pfizer Covid-19 03/19/2020 08:13:00 AM EST completed eCW1 ([facility]) Pfizer Covid-19 03/19/2020 08:13:00 AM EST completed eCW1 ([facility]) Pfizer Covid-19 03/19/2020 08:13:00 AM EST completed eCW1 ([facility]) Pfizer Covid-19 03/19/2020 08:13:00 AM EST completed eCW1 ([facility]) Pfizer Covid-19 03/19/2020 08:13:00 AM EST completed eCW1 ([facility]) COVID-19 VACCINE Pfizer 03/19/2020 12:00:00 AM EST completed [place] Vaccine Series Complete: YESThis Data wa s Submitted to [facility] Via [employer]. Pfizer Covid-19 02/27/2020 08:13:00 AM EST completed eCW1 ([facility]) Pfizer Covid-19 02/27/2020 08:13:00 AM EST completed eCW1 ([facility]) Pfizer Covid-19 02/27/2020 08:13:00 AM EST completed eCW1 ([facility]) Pfizer Covid-19 02/27/2020 08:13:00 AM EST completed eCW1 ([facility]) Pfizer Covid-19 02/27/2020 08:13:00 AM EST completed eCW1 ([facility]) Pfizer Covid-19 02/27/2020 08:13:00 AM EST completed eCW1 ([facility]) Pfizer Covid-19 02/27/2020 08:13:00 AM EST completed eCW1 ([facility]) COVID-19 VACCINE Pfizer 02/27/2020 12:00:00 AM EST completed [place] Vaccine Series Complete: NOThis Data was Submitted to [facility] Via [employer]. New in 2011. IIV4 11/28/2019 07:00:00 AM EDT completed eCW1 ([facility]) New in 2011. IIV4 11/28/2019 07:00:00 AM EDT completed eCW1 ([facility]) New in 2011. IIV4 11/28/2019 07:00:00 AM EDT completed eCW1 ([facility]) New in 2011. IIV4 11/28/2019 07:00:00 AM EDT completed eCW1 ([facility]) New in 2011. IIV4 11/28/2019 07:00:00 AM EDT completed eCW1 ([facility]) New in 2011. IIV4 11/28/2019 07:00:00 AM EDT completed eCW1 ([facility]) New in 2011. IIV4 11/28/2019 07:00:00 AM EDT completed eCW1 ([facility]) New in 2011. IIV4 11/28/2019 07:00:00 AM EDT completed eCW1 ([facility]) New in 2011. II4 11/28/2019 07:00:00 AM EDT completed eCW1 ([facility]) New in 2011. II4 11/28/2019 07:00:00 AM EDT completed eCW1 ([facility]) New in 2011. II4 11/28/2019 07:00:00 AM EDT completed eCW1 ([facility]) New in 2011. II4 11/28/2019 07:00:00 AM EDT completed eCW1 ([facility]) New in 2011. II11/28/2019 07:00:00 AM EDT completed eCW1 ([facility]) New in 2011. II11/28/2019 07:00:00 AM EDT completed eCW1 ([facility]) New in 2011. II11/28/2019 07:00:00 AM EDT completed eCW1 ([facility]) New in 2011. II11/28/2019 07:00:00 AM EDT completed eCW1 ([facility]) New in 2011. II11/28/2019 07:00:00 AM EDT completed eCW1 ([facility]) Medications Medication Brand Name Start Date Product Form Dose Route Admi nistrative Instructions Pharmacy Instructions Status Indications Reaction Description Data Source(s) Cyclobenzaprine hydrochloride 5 MG Oral Tablet cyclobenzaprine (FLEXERIL) 5 MG tablet cyclobenzaprine (FLEXERIL) 5 MG tablet 10/09/2020 12:00:00 AM EDT active as needed [facility] ferrous gluconate 324 MG Oral Tablet ferrous gluconate (FERGON) 324 MG tablet ferrous gluconate (FERGON) 324 MG tablet 10/02/2020 12:00:00 AM EDT active TAKE 1 TABLET BY MOUTH TWICE MARIA C LY WITH JUICE OR WATER BETWEEN MEALS [facility] Docusate Sodium 100 MG Oral Capsule [DOK] DOK 100 MG capsule DOK 100 MG capsule 10/02/2020 12:00:00 AM EDT active TAKE 1 CAPSULE BY MOUTH TWICE DAILY NEEDED FOR CONSTIPATION [facility] 24 HR metoprolol succinate 25 MG Extende d Release Oral Tablet metoprolol succinate (TOPROL-XL) 25 MG 24 hr tablet metoprolol succinate (TOPROL-XL) 25 MG 24 hr tablet 09/17/2020 12:00:00 AM EDT 25 mg Oral activ e Take 25 mg by mouth daily [facility] Metoprolol Succinate 25 MG UNK 12/06/2019 12:00:00 AM EDT 1. 0 {capsule} active Metoprolol Succinate 25 MG eCW1 ([facility]) Metoprolol Succinate 25 MG UNK 12/06/2019 12:00:00 AM EDT 1. 0 {capsule} active Metoprolol Succinate 25 MG eCW1 ([facility]) Metoprolol Succinate 25 MG UNK 12/06/2019 12:00:00 AM EDT 1. 0 {capsule} active Metoprolol Succinate 25 MG eCW1 ([facility]) Metoprolol Succinate 25 MG UNK 12/06/2019 12:00:00 AM EDT 1. 0 {capsule} active Metoprolol Succinate 25 MG eCW1 ([facility]) Metoprolol Succinate 25 MG UNK 12/06/2019 12:00:00 AM EDT 1. 0 {capsule} active Metoprolol Succinate 25 MG eCW1 ([facility]) Metoprolol Succinate 25 MG UNK 12/06/2019 12:00:00 AM EDT 1. 0 {capsule} active Metoprolol Succinate 25 MG eCW1 ([facility]) Metoprolol Succinate 25 MG UNK 12/06/2019 12:00:00 AM EDT 1. 0 {capsule} active Metoprolol Succinate 25 MG eCW1 ([facility]) Metoprolol Succinate 25 MG UNK 12/06/2019 12:00:00 AM EDT 1. 0 {capsule} active Metoprolol Succinate 25 MG eCW1 ([facility]) Insurance Providers Payer name Policy type / Coverage type Policy ID Covered democrat ID Covered democrat's relationship to capellan Policy Capellan Plan Information [id number] CCS MEDICAID [id number] SP [id number] F CCS MEDICAID [id number] SP [id number] F EXCELLUS BCBS MEDICAID [id number] EXCELLUS BCBS MEDICAID [id number] Yanira [id number] RPR- Needs Payer Match [id number] Self [id number] [employer] Blue Cross and Blue Shield - [place] Blue Cross/B lue Shield [id number] Self [id number] RPR- Needs Payer Match [id number] Self [id number] SELF PAY UNAVAILABLE SP UNAVAILA BLE [facility] [id number] FA [id number] BCBS MIMI HMO [id number] SP [id number] [facility] [id number] FA [id number] BCBS MIMI HMO [id number] SP [id number] BCBS MIMI HMO [id number] SP [id number] [place] PPO [id number] SP [id number] [place] PPO 302/307 [id number] SP [id number] [place]BS [place] PPO 302/307 [id number] SP [id number] BCBS ESSENTIAL PLAN [id number] S [id number] EXCELLUS BLUE CROSS [id number] SP [id number] [facility] STATE COVID TESTING SP BCBS ESSENTIAL PLAN [id number] [employer] employ[employer] d [id number] SELF PAY Problems, Conditions, and Diagnoses Code Display Name Description Problem Type Effective Dates Data Source(s) R55 Syncope and collapse Syncope and collapse Diagnosis 11/25/2020 02:50:21 PM EDT [facility] R00.2 Palpitations Palpitations Diagnosis 11/25/2020 02:50:21 P M EDT [facility] Z11.3 Encounter for screening for infections with a predominantly sexual mode of transmission ENCNTR SCREEN FOR INFECTIONS W SEXL MODE OF TRANSMISS Diagno sis 07/31/2020 12:43:00 PM EDT [facility]. 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 Diagnosis 11/26/2019 11:39:00 AM EDT [facility] R00.2 Palpitations PALPITATIONS Diagnosis 11/26/2019 11:39:00 A M EDT [facility] R55 Vasovagal syncope Vasovagal syncope [id number] 11/25/2020 12:00:00 AM EDT [facility] G47.33 Obstructive sleep apnea Obstructive sleep apnea Proble m 09/30/2020 12:00:00 AM EDT eCW1 ([facility]) R00.2 Palpitations Palpitations [id number] 09/25/2020 12:00:00 A M EDT [facility] G47.33 Obstructive sleep apnea syndrome Moderate obstru ctive sleep apnea Problem 01/25/2020 12:00:00 AM EST eCW1 ([facility]) I10 Essential hypertension Essential (primary) hypertensio n Problem 12/06/2019 12:00:00 AM EDT eCW1 ([facility]) Z68.38 Body mass index 35.00 to 39.99 Body mass index ( BMI) 38.0-38.9, adult Problem 11/29/2019 12:00:00 AM EDT eCW1 ([facility]) Surgeries/Procedures Procedure Description Date Indications Data Source(s) POCT AMB EKG <td>POCT AMB EKG</td><td>Rou carlos</td><td>11/25/2020 3:21 PM EDT</td><td> Vasovagal syncope</td><td> </td> 11/25/2020 03:21:00 PM EDT Vasovagal syncope [facility] Vasovagal syncope BLOOD COUNT COMPLETE AUTO&AUTO DIFRNTL WBC COUNT <td>C BC AND DIFFERENTIAL</td><td>Routine</td><td>11/21/2020</td><td></td><td> </td> 11/21/2020 12:00:00 AM EDT [facility] THYROID STIMULATING HORMONE TSH <td>TSH</td><td>Routine</td><td>11/21/2020</td><td></td><td> </td> 11/21/2020 12:00:00 AM EDT [facility] BASIC METABOLIC PANEL CALCIUM TOTAL <td>BASIC METABOLI C PANEL</td><td>Routine</td><td>11/21/2020</td><td></td><td> </td> 11/21/2020 12:00:00 AM EDT [facility] THYROID STIMULATING HORMONE TSH <td>TSH</td><td>Routine</td><td>11/04/2020</td><td></td><td> </td> 11/04/2020 12:00:00 AM EDT [facility] BASIC METABOLIC PANEL CALCIUM TOTAL <td>BASIC METABOLI C PANEL</td><td>Routine</td><td>11/04/2020</td><td></td><td> </td> 11/04/2020 12:00:00 AM EDT [facility] POCT AMB EKG <td>POCT AMB EKG</td><td>Rou carlos</td><td>10/14/2020 1:30 PM EDT</td><td> Palpitations</td><td> </td> 10/14/2020 01:30:00 PM EDT Palpitations [facility] Palpitations BLOOD COUNT COMPLETE AUTO&AUTO DIFRNTL WBC COUNT <td>C BC AND DIFFERENTIAL</td><td>Routine</td><td>09/05/2020</td><td></td><td> </td> 09/05/2020 12:00:00 AM EDT [facility] THYROID STIMULATING HORMONE TSH <td>TSH</td><td>Routine</td><td>09/05/2020</td><td></td><td> </td> 09/05/2020 12:00:00 AM EDT [facility] HEPATIC FUNCTION PANEL <td>HEPATIC FUNCTION PANEL</td><td>Routine</td><td>09/05/2020</td><td></td><td> </td> 09/05/2020 12:00:00 AM EDT [facility] BASIC METABOLIC PANEL CALCIUM TOTAL <td>BASIC METABOLI C PANEL</td><td>Routine</td><td>09/05/2020</td><td></td><td> </td> 09/05/2020 12:00:00 AM EDT [facility] [id number] X-RAY EXAM CHEST 1 VIEW 03/03/2020 12:00:00 AM [facility] EMERGENCY DEPARTMENT VISIT HIGH/URGENT SEVERITY EMERGENCY DE PT VISIT 03/03/2020 12:00:00 AM [facility] Sleep Staging W/4 0R More Addit 12/12/2019 12:00:00 AM EDT [place] ([place]) [id number] X-RAY EXAM CHEST 2 VIEWS 11/26/2019 12:00:00 AM [facility] ECHO TTHRC R-T 2D W/WOM-MODE COMPL SPEC&COLR DOP TTE W/DOPPL ER COMPLETE 11/26/2019 12:00:00 AM [facility] EXTERNAL ECG SCANNING ANALYSIS REPORT ECG MONIT/REPRT UP TO 48 HRS 11/26/2019 12:00:00 AM [facility] XTRNL ECG < 48 HR RECORDING ECG MONIT/REPRT UP TO 48 HRS 12:00:00 AM [facility] ECG ROUTINE ECG W/LEAST 12 LDS TRCG ONLY W/O I&R ELECTROCARD IOGRAM TRACING 11/26/2019 12:00:00 AM [facility] ANTIBODY EHRLICHIA EHRLICHIA ANTIBODY 11/26/2019 12:00:00 AM [facility] ANTIBODY PROTOZOA VALERIANO PROTOZOA ANTIBODY NOS 11/26/2019 12:00:00 AM [facility] THYROXINE FREE ASSAY OF FREE THYROXINE 11/26/2019 12:00:00 AM [facility] THYROID STIMULATING HORMONE TSH ASSAY THYROID STIM HORMONE 0 11/26/2019 12:00:00 AM [facility] ANTIBODY BORRELIA BURGDORFERI LYME DISEASE LYME DISEASE ANTI BODY 11/26/2019 12:00:00 AM [facility] THROMBOPLASTIN TIME PARTIAL PLASMA/WHOLE BLOOD THROMBOPLASTI N TIME PARTIAL 11/26/2019 12:00:00 AM [facility] PROTHROMBIN TIME PROTHROMBIN TIME 11/26/2019 12:00:00 AM [facility] BLOOD COUNT COMPLETE AUTO&AUTO DIFRNTL WBC COUNT COMPLETE CB C W/AUTO DIFF WBC 11/26/2019 12:00:00 AM [facility] [address] DRUG SCREEN QUANTALCOHOLS 11/26/2019 12:00:00 AM [facility] GONADOTROPIN CHORIONIC QUALITATIVE CHORIONIC GONADOTROPIN SAY 11/26/2019 12:00:00 AM [facility] [address] ANALGESICS NON-OPIOID 1 OR 2 11/26/2019 12:00:00 AM ED [facility] TROPONIN QUANTITATIVE ASSAY OF TROPONIN QUANT 11/26/2019 12:00:00 A M EDT [facility] LIPASE ASSAY OF LIPASE 11/26/2019 12:00:00 AM EDT [facility] COMPREHENSIVE METABOLIC PANEL COMPREHEN METABOLIC PANEL 11/06 12:00:00 AM EDT [facility] FIBRIN DGRADJ PRODUCTS D-DIMER QUANTITATIVE FIBRIN DEGRADATI ON QUANT 11/26/2019 12:00:00 AM EDT [facility] Non-covered item or service NON-COVERED ITEM OR SERVICE 11/06 12:00:00 AM EDT [facility] Injection, lorazepam, 2 mg 11/26/2019 12:00:00 AM EDT [facility] COLLECTION VENOUS BLOOD VENIPUNCTURE ROUTINE VENIPUNCTURE 12:00:00 AM EDT [facility] THER PROPH/DX NJX IV PUSH SINGLE/1ST SBST/DRUG THER/PROPH/DI AG INJ IV PUSH 11/26/2019 12:00:00 AM EDT [facility] EMERGENCY DEPT VISIT HIGH SEVERITY&THREAT FUNCJ EMERGENCY DE PT VISIT 11/26/2019 12:00:00 AM EDT [facility] Results ID Date Data Source [id number] 09/30/2020 01:02:36 PM EDT [facility] Name Value Range Interpretation Code Description Data Allyson rce(s) Supporting Document(s) &PDF [facility] VMQOXx3sVyHBPvSx21/SVDiqKLQrc1SiKYglAIl3JHyeSRIqD0WwlFolBARMRGJHUPqZHb4TZdNMANDw vci [file] ICAgICAgICAgICAgICAgICAgICAgICAgICAgICAgIC AgICAgICAgICAgICANCiAgICAgICAgICAgICAgICAgICAgICAgICAgICAgICAgICAgICAgICAgICAgIC AgICAgICAgICAgICAgICAgICAgICAgICAgICAgICAgICAgICAgICAgICAgICAgICAgICAgICANCiAgIC AgICAgICAgICAgICAgICAgICAgICAgICAgICAgICAg ICAgICAgICAgICAgICAgICAgICAgICAgICAgICAgICAgICAgICAgICAgICAgICAgICAgICAgICAgICAg ICAgICANCiAgICAgICAgICAgICAgICAgICAgICAgICAgICAgICAgICAgICAgICAgICAgICAgICAgICAg ICAgICAgICAgICAgICAgICAgICAgICAgICAgICAgIC AgICAgICAgICAgICAgICANCiAgICAgICAgICAgICAgICAgICAgICAgICAgICAgICAgICAgICAgICAgIC AgICAgICAgICAgICAgICAgICAgICAgICAgICAgICAgICAgICAgICAgICAgICAgICAgICAgICAgICANCi AgICAgICAgICAgICAgICAgICAgICAgICAgICAgICAg ICAgICAgICAgICAgICAgICAgICAgICAgICAgICAgICAgICAgICAgICAgICAgICAgICAgICAgICAgICAg ICAgICAgICANCiAgICAgICAgICAgICAgICAgICAgICAgICAgICAgICAgICAgICAgICAgICAgICAgICAg ICAgICAgICAgICAgICAgICAgICAgICAgICAgICAgIC AgICAgICAgICAgICAgICAgICANCiAgICAgICAgICAgICAgICAgICAgICAgICAgICAgICAgICAgICAgIC AgICAgICAgICAgICAgICAgICAgICAgICAgICAgICAgICAgICAgICAgICAgICAgICAgICAgICAgICAgIC ANCiAgICAgICAgICAgICAgICAgICAgICAgICAgICAg ICAgICAgICAgICAgICAgICAgICAgICAgICAgICAgICAgICAgICAgICAgICAgICAgICAgICAgICAgICAg ICAgICAgICAgICANCiAgICAgICAgICAgICAgICAgICAgICAgICAgICAgICAgICAgICAgICAgICAgICAg ICAgICAgICAgICAgICAgICAgICAgICAgICAgICAgIC AgICAgICAgICAgICAgICAgICAgICANCjw/aGXfP6zhdDGaeiQ8Y9wwSr4ULs6TDZ7fz5FaPQLhYWbgzn AdUhgDLiZwCQQuMakOMxc0CZitIZ6ShRFgT2MrW9VtADkmWD2KNDIqHQIajWSnVTKyGQGxFeZ3LPQrMQ vtXD1NaQWcSJqpPFKlGJQwCvGuJRHjRBVmHBYzTU1O VTQoQ353wmNcVe2ZNf4POhGdFD3wvr0JXSXtXLTdDmfDNhx5IYnvJU9AuTYnU5RdmJSnu5iYFuLyE0US RZYsDGKvWl9ACFJgSkPhNJKeMPniUS3yOCWqCXBJbAchtoI2WE1TJW5gzaHfEI6LPfZqBs2rEz3TTlVw G4LtD1RuKXGmBOUKAGibAS2WPQBhCVA1YYX6TGJfQT YSSkUvZ26uCY3BU4Txe26oDtM3ASLdAeToMOpnNB93lJagevUnkWYobTaaEM4PZg1+DQplbmRvYmoNCn anISKMQzMiEHKXNsHpTVAcRAGlCKHoEfT2WuFoNc9FYMJqYHLjCSGtGeNlSZAoKDBtWTsfXXRwGQPcXZ M5FYBnFFXrTF3CChSdTUWwEjG1GDptTWMoWSKvrt8S LWByAFSuTKK7HhHcDYGbPKBpMZmaNPTeIEVqAEQ6BPVfDCLwET4AJxYvFYCdAJV8QEExNWLjAFRejo2W EOPpCCDzNjF2LPFqKRRjJMLyPGgrCRZaIKJ1IkN6OMVmJBNpHJ8YFbEtDTTqDMefQoBcFKUmBPMxjr2Q LNBoIYJbWgMrEKGwPYSlQVTiQMrzKUBuJSE5Wgb8GI QtGTLrBO8GQtSwJPNqKFk5CWRgQKWnTOFveb0SXSZkSHDvWCW9RHMcLZMwFTIfOClxNXNhEUA7KsQxJF UgWATaNA4OZvImBEUeKWy0OqCbBNFtRKDenl4ZCUQrZJKiAVIpGbLhIOVtDHVkQOspYQOdQPS4MWg8ZK BfVTPmFO7JYpTwMUPhRFBeWMNxRFSxETMdsh4ANLZk OXYsAYItASVrOXJePZCxDWghSIAgKTJ3HnI6AHJnKFQbPY5AUyJhGAEkREA3PGEcKELfDJLpwh7XKPIm VMDmQdnuUjYlNBRsATSxSBchTEJfTVT8GNTtOAQeERIlFA1AEbRiQTQbEPiaBYIdSJPjHGNcfd7AUDWl QANsATKhKuLdNXSjGUPgJTycSGRlEHA3XvI3CECkAS GlGV6MAvOfMHJtLLn6NEupFGGaAGCvue3HXSHcIFQkOZW3WZRwKKYoERQcRSqjRUKiRDA6ICL0ISSpTN YnHW3UThRzMHCiMUs6BEBdWWPaGEBgqn6XKMCgFOYsAYXkXWPdUCOqCRCqNNalZOUdRRZcFpOxPRSeLV JkRR0VUxGjTDOqItH1KPGqEKIzGOVuoe0ZQBYqMHVo TBc0XULoDBZfNFRpMIluLEKiDIKzYCs8PLEkKSQxWI2TThMlZYMiUxVkIIOjZCOwXBLegc7JFVViWWKz EIEiBRGiIJDkMUNfPQkiHIAzYAAkMIH3SEKeTWCkTR3CNpJbIENaUcUaPFCkNRVrETAxkl9AVHAgJIIq ZzS7BIHrHFWtDPMcFNumYCQtDWBfPRY2NHHsBDAoYQ 4JGiHwLJZkUqU9VzjqGGObLXKfon9IfWVfxJplfo0KEDxBRt7ThSffDPSkLCeaVd4isPQ3JvWwZMMOUr 5YawSsAZYqLYTEYIukQUJaEDS5ZlKrDbVuVWY9QRD6QQIlTQD3AGP9JlBuXQFhAPA6VcP2BnibJNSpHO PoHDo7EWTkFpL7VOgwLyIjUJW8ZLPyBDy+IF0gDQ o+Xx9Ne8IvaoL6qsVkFGskDDb0TC7BNHTJF6MLMl== ID Date Data Source [id number] 09/24/2020 03:30:00 PM EDT [facility] Name Value Range Interpretation Code Description Data Allyson rce(s) Supporting Document(s) SARS-CoV-2 RNA Resp Ql MARINO+probe NOT DETECTED [facility] This lab was ordered by SOLANGE richardson and reported by SOLANGE Queen. ID Date Data Source [id number] 08/04/2020 08:51:00 AM EDT [facility] Name Value Range Interpretation Code Description Data Allyson rce(s) Supporting Document(s) CHLAMYDIA NUCLEIC ACID AMP Negative Negative Pat l (applies to non-numeric results) [facility] GONOCOCCUS NUCLEIC ACID AMP Negative Negative Norm al (applies to non-numeric results) [facility] Performed at: RN - [facility] [address] [id number] Director: Le Kang MD, Phone: [phone] ID Date Data Source ekg 07/31/2020 12:00:00 AM EDT eCW1 ([facility]) Name Value Range Interpretation Code Description Data Allyson rce(s) Supporting Document(s) ekg eCW1 ([facility]) ID Date Data Source Urinalysis (auto) 07/31/2020 12:00:00 AM EDT eCW1 ([facility]) Name Value Range Interpretation Code Description Data Allyson rce(s) Supporting Document(s) Leukocyte esterase [Presence] in Urine by Test strip +- Leukocytes eCW1 ([facility]) Nitrite [Presence] in Urine by Test strip - Nitrites eCW1 ([facility]) pH of Urine by Test strip 6.0 pH eCW1 ([facility]) Protein [Presence] in Urine by Test strip +- Protein eCW1 ([facility]) Urobilinogen [Mass/volume] in Urine by Test strip - Urobilinogen eCW1 ([facility]) Hemoglobin [Presence] in Urine by Test strip - Blood eCW1 ([facility]) Bilirubin.total [Presence] in Urine by Test strip - Bilirubin eCW1 ([facility]) Glucose [Presence] in Urine by Test strip - Glucose eCW1 ([facility]) Ketones [Presence] in Urine by Test strip +- Ketones eCW1 ([facility]) Specific gravity of Urine by Test strip 1.030 Specific Rico eCW1 ([facility]) Color eCW1 ([facility]) ID Date Data Source Glucose, cholestech machine 07/31/2020 12:00:00 AM EDT eCW1 ([facility]) Name Value Range Interpretation Code Description Data Allyson rce(s) Supporting Document(s) 89 glucose eCW1 ([facility]) ID Date Data Source Lipid Panel And Chol/HDL Ratio 07/31/2020 12:00:00 AM EDT eC W1 ([facility]) Name Value Range Interpretation Code Description Data Allyson rce(s) Supporting Document(s) Cholesterol [Mass/volume] in Serum or Plasma 143 Cholesterol, Total eCW1 ([facility]) Cholesterol in HDL [Mass/volume] in Serum or Plasma 34 HDL Cholesterol eCW1 ([facility]) Triglyceride [Mass/volume] in Serum or Plasma 166 Triglycerides eCW1 ([facility]) Cholesterol in LDL [Mass/volume] in Serum or Plasma by calculation 75 LDL Cholesterol Calc eCW1 ([facility]) Cholesterol in VLDL [Mass/volume] in Serum or Plasma by calculation 108 VLDL Cholesterol Jorge Luis eCW1 ([facility]) Cholesterol.total/Cholesterol in HDL [Mass Ratio] in Serum or Plasm a 4.1 T. Chol/HDL Ratio eCW1 ([facility]) ID Date Data Source Hemoglobin A1c 07/31/2020 12:00:00 AM EDT eCW1 ([facility]) Name Value Range Interpretation Code Description Data Allyson rce(s) Supporting Document(s) Hemoglobin A1c/Hemoglobin.total in Blood 5.1 Hemoglobin A1c eCW1 ([facility]) ID Date Data Source [id number] 07/05/2020 08:41:00 PM EDT [place] [facility] Name Value Range Interpretation Code Description Data Allyson rce(s) Supporting Document(s) COVID-19 RT-PCR ER [employer]ICAL TECHNICIAN SWAB Not Detected Not Detected [facility] A not detected (negative) test result fo r this test means that SARS-CoV-2 RNA was not present in the specimen above the limit ofdetection. Laboratory test results should always be considered in thecontext of clinical observations and epidemiological data in making afinal diagnosis and patient management decisions. Results will bereported to government agencies as required.This test has received Emergency Use Authorization (EUA). We will continue to follow federal and state requirements for COVID-19 reporting. This test has been authorized only for the detection of RNAfrom SARS-CoV-2 virus and diagnosis of SARS-CoV-2 virus infection, notfor any other viruses or pathogens. This test is only authorized for the duration of the declaration that circumstances exist justifying the authorization of the emergency use of in vitro diagnostic tests for detection of SARS-CoV-2 virus and/or diagnosis of SARS-CoV-2 virusinfection under section 564(b)(1) of the Act, 21 U.S.C. section 360bbb-3(b)(1), unless the authorization is terminated or revoked sooner. We will continue to follow federal and state requirements for both notification of results and any confirmatory testing that is required by another agency. This test was developed and its performance characteristics determined by [employer] and verified at [employer]. It has not been cleared or approved by the U.S. Food and Drug Administration for diagnostic use. This test has been authorized by FDA under an EUA for use by authorized laboratories. Results should be used in conjunction with clinical findings, and should not form the sole basis for a diagnosis or treatment decision. Methods: SARS-CoV-2 Multiplex RT-PCR Assay ID Date Data Source [id number] 07/03/2020 02:45:00 PM EDT [facility] Name Value Range Interpretation Code Description Data Allyson rce(s) Supporting Document(s) SARS-CoV-2 (COVID-19) N gene [Presence] in Respiratory specimen by MARINO with probe detection NEGATIVE [facility] This lab was ordered by Bret Nina and reported by [employer]. ID Date Data Source [id number] 07/03/2020 12:00:00 AM EDT [facility] Name Value Range Interpretation Code Description Data Allyson rce(s) Supporting Document(s) Carestart Rapid COVID Antigen Test Negative [facility] This lab was reported by Bret morrell. ID Date Data Source Strep test 04/22/2020 12:00:00 AM EST eCW1 ([facility]) Name Value Range Interpretation Code Description Data Allyson rce(s) Supporting Document(s) negative results eCW1 ([facility]) ID Date Data Source COVID-19 Ag 04/22/2020 12:00:00 AM EST eCW1 ([facility]) Name Value Range Interpretation Code Description Data Allyson rce(s) Supporting Document(s) - COVID-19 Ag eCW1 ([facility]) ID Date Data Source Rapid Influenza B 04/22/2020 12:00:00 AM EST eCW1 ([facility]) Name Value Range Interpretation Code Description Data Allyson rce(s) Supporting Document(s) negative Test Result eCW1 ([facility]) ID Date Data Source Rapid Influenza A 04/22/2020 12:00:00 AM EST eCW1 ([facility]) Name Value Range Interpretation Code Description Data Allyson rce(s) Supporting Document(s) negative Test Result eCW1 ([facility]) ID Date Data Source [id number] 03/03/2020 04:32:00 PM [facility] Name: NAILA ERIC Med Rec #: [id number] : 1995 Age/Sex: 24F Date of Service: 03/03/20 PHYSICIAN CHART Physician Documentation [facility] Name: Naila Eric Age: 24 yrs Sex: Female : 1995 Arrival Date: 03/03/2020 Time: 16:32 Bed 13 Private MD: Raad Arora ED Physician Molly Hoffman HPI: 03/03 19:08 This 24 yrs old Female presents to ER via Walk- In wn with complaints of Allergic Reaction. 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 Patient received the Pfizer COVID-19 vaccination on 02/27/2020. She complained of pain in her arm at the injection site afterwards and has been experiencing increased number of palpitations. She states that her heart rate was yesterday was 170, and she complained of a fever yesterday although she states that it was only 99-100. She is currently asymptomatic.. 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 metoprolol succinate 25 mg CSpX 1 cap once daily - PMHx: Heart palpitations; - PSHx: Appendectomy; L5 S1 fusion; - Med Reconciliation:: Green Alert: The patient's med list is complete to the best of the nurse's/provider's knowledge. Medications reviewed, completed by nurse verbally from patient/family. - Immunization history: The patients tetanus immunization is up to date. Flu vaccine is up to date. - Advance directive: There is no existing advanced directive. Information offered. - Family History:: mother : unknown medical history. Father : unknown medical history. - Social History: Smoking status (Tobacco): Patient states he/she has never smoked tobacco. No barriers to communication noted, The patient speaks fluent Greek. ROS: 19:11 Constitutional: See HPI. Cardiovascular: See HPI. wn Exam: 19:11 Constitutional: This is a well developed, well nourished wn patient who is awake, alert, afebrile and in no acute distress. Head/Face: Normocephalic, atraumatic. Cardiovascular: Regular rate and rhythm Respiratory: Easy respiratory effort, lungs are clear to auscultation Skin: Warm, dry with normal turgor. Normal color with no rashes, no lesions, and no evidence of cellulitis. Neuro: Awake and alert x 3 Vital Signs: 16:37 BP 140 / 85; Pulse 123 MON; Resp 20 S; Temp 98.9(TE); Pulse radha Ox 98% on R/A; Weight 104.33 kg (R); Height 5 ft. 6 in. (167.64 cm) (R); 18:23 BP 112 / 79; Pulse 91; Resp 18; Pulse Ox 98% on R/A; Pain radha 0/10; 19:22 BP 105 / 76; Pulse 87; Resp 16; Temp 98.3; Pulse Ox 97% ; alc 16:37 Body Mass Index 37.12 (104.33 kg, 167.64 cm) radha MDM: 18:27 Patient medically screened. wn 19:11 Data reviewed: vital signs, nurses notes. ED course: Labs wn are unremarkable. EKG shows normal sinus rhythm at a rate of 72. No ectopic beats. Patient is a [id number] Covid test that was negative. I have recommended that she follow- up with her primary care provider with a cardiology consultation and repeat outpatient Holter monitoring.. 19:13 Case presented to: Dr. Molly Hoffman. wn 03/03 16:47 Order name: Cbc With Auto Differential; Complete Time: 18:24rc3 03/03 16:47 Order name: Comprehensive Metabolic Prof.; Complete Time: rc3 18:24 03/03 16:47 Order name: Lipase; Complete Time: 18:24 rc3 03/03 16:47 Order name: Partial Thromboplastin Time; Complete Time: rc3 18:24 03/03 16:47 Order name: Prothrombin Time; Complete Time: 18:24 rc3 03/03 16:47 Order name: Troponin I; Complete Time: 18:24 rc3 03/03 16:47 Order name: CXR Portable (Chest Pain) rc3 03/03 16:47 Order name: Emergency Room EKG Order - Use EKG Work-Up rc3 /Quick Select; Complete Time: 18:31 03/03 16:47 Order name: Cardiology EKG Interpretation - Choose Reason rc3 for Test 03/03 16:47 Order name: Place Patient On Monitor; Complete Time: 18:25 rc3 03/03 16:47 Order name: Beta Hcg,Qualitative; Complete Time: 18:24 rc3 03/03 18:40 Order name: POC - Collect COVID-19 swab; Complete Time: wn 18:49 Dispensed Medications: No medications were administered Disposition Summary: 03/03/20 19:12 Discharge Ordered Location: Home/Self Care wn Condition: Good wn Diagnosis - Palpitations wn Followup: wn - With: Alin Smalls MD - When: 1 week - Reason: Discharge Instructions: - Discharge Summary Sheet wn - Palpitations wn Forms: - Medication Reconciliation wn Addendum: 03/06/2020 21:55 Attestation: I discussed the plan of care with Mid-Level jt Provider and agree with what they have documented. Signatures: Dispatcher [employer] EDJuve Wall, JUS HEALTH SERVICE COORDINATOR wn Molly Hoffman MD MD jtJanna Pollard DO DO rc3 Babs Barnes RN RN alc Lecuyer, Kelly, RN RN radha Corrections: (The following items were deleted from the chart) 03/03 19:00 16:47 Iv Saline Lock+BEN ordered. rc3 alc Name Value Range Interpretation Code Description Data Allyson rce(s) Supporting Document(s) ID Date Data Source [id number] 03/03/2020 04:32:00 PM [facility] Name: NAILA ERIC Med Rec #: [id number] : 1995 Age/Sex: 24F Date of Service: 03/03/20 NURSE CHART Nurse's Notes [facility] Name: Naila Eric Age: 24 yrs Sex: Female : 1995 Arrival Date: 03/03/2020 Time: 16:32 Bed 13 Private MD: Raad Arora Diagnosis: Palpitations Presentation: 03/03 16:36 Acuity: Urgent - 3 [facility] 16:39 Transition of care: patient was not received from another [facility] setting of care. Onset: The symptoms/episode began/occurred 5 day(s) ago. Anaphylaxis evaluation, no signs or symptoms of anaphylaxis were noted. Presenting complaint: Patient states - States she received the Pfizer Vaccine on the . She has hx. of palpitations andis on medication to control her rate. She has been having them intermittently since. Have you travelled in the last 30 days? No. Have you had contact with an individual with a confirmed diagnosis of Ebola or COVID-19? No. 16:39 Method Of Arrival: Walk-In [facility] Triage Assessment: 16:42 SEPSIS SCREEN: A Confirmed or Suspected Infection is radha Unknown, their temperature is not <96.8 or >100.9, their heart rate is >90, their RR is not >20, it is unknown if their WBC is <4 or >12, the patient does not have new or unexplained altered mental status. SIRS or Sepsis criteria is not present. Suicide Screening: Have you had thoughts of harming yourself or others? No. The patient appears to have some mild discomfort, The patient is cooperative. The patient denies having pain. 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 metoprolol succinate 25 mg CSpX 1 cap once daily - PMHx: Hear t palpitations; - PSHx: Appendectomy; L5 S1 fusion; - Med Reconciliation:: Green Alert: The patient's med list is complete to the best of the nurse's/provider's knowledge. Medications reviewed, completed by nurse verbally from patient/family. - Immunization history: The patients tetanus immunization is up to date. Flu vaccine is up to date. - Advance directive: There is no exi sting advanced directive. Information offered. - Family History:: mother : unknown medical history. Father : unknown medical history. - Social History: Smoking status (Tobacco): Patient states he/she has never smoked tobacco. No barriers to communication noted, The patient speaks fluent Greek. Screenin:43 AUDIT 1. How often do you have a drink containing alcohol? alc Never (0 points). Drug Abuse Screening Test: 1. Have you used drugs other than those required for medical reasons? No (0 points), screen is complete, no risk. Abuse screen: Denies threats or abuse. Denies injuries from another. Nutritional screening: No deficits noted. The patient tries to walk without assistance despite being advised to ask for help or use an assistive device to ambulate (30 points). The patient is at HIGH RISK for falls (Lott Scale = >45 pts). Fall prevention measures have been instituted. Patient and Family have been educated on fall prevention program and strategies. Assessment: 17:55 Respiratory: Airway is patent. Respiratory effort is even, alc Respiratory pattern is regular, Breath sounds are clear bilaterally. Vital Signs: 16:37 BP 140 / 85; Pulse 123 MON; Resp 20 S; Temp 98.9(TE); Pulse radha Ox 98% on R/A; Weight 104.33 kg (R); Height 5 ft. 6 in. (167.64 cm) (R); 18:23 BP 112 / 79; Pulse 91; Resp 18; Pulse Ox 98% on R/A; Pain radha 0/10; 19:22 BP 105 / 76; Pulse 87; Resp 16; Temp 98.3; Pulse Ox 97% ; alc 16:37 Body Mass Index 37.12 (104.33 kg, 167.64 cm) radha ED Course: 16:32 Patient arrived in ED. erm 16:36 Triage completed. radha 16:39 Raad Arora MD is Private Physician. radha 16:43 Arm band placed on right wrist. Patient placed in exam room radha Patient has correct armband on for positive identification. 16:52 An EKG was obtained and reviewed by Janna Sheriff DO. radha 17:30 Radiology: Patient to X-ray at 17:30. alc 18:23 Babs Barnes RN is Primary Nurse. alc 18:25 CXR Portable (Chest Pain) Sent. edv 18:26 Juve Castillo RNP is PHCP. wn 18:26 Janna Sheriff DO is Attending Physician. wn 18:32 Cardiology EKG Interpretation - Choose Reason for Test Sent.alc 19:00 The patient was tested for COVID-19 by Babs Barnes RN , alc the result was negative, the procedural control was valid, provider notified: Juve LUU. 19:00 Labs drawn by lab staff. alc 19:08 Attending Physician role handed off by Janna Sheriff DO jtv 19:08 Molly Hoffman MD is Attending Physician. jt 19:12 Alin Smalls MD is Referral Physician. wn 19:23 No procedures ordered. alc Administered Medications: No medications were administered Outcome: 19:12 Discharge ordered by MD. wn 19:23 Patient verbalized understanding of disposition alc instructions. Patient has no functional deficits. 19:23 Patient discharged to home ambulatory. 19:23 Condition: stable 19:23 Discharge instructions given to patient, Patient was instructed on discharge instructions, follow up and referral plans, medication usage, The patient demonstrated understanding of instructions, medications, No prescriptions given. 19:23 Vitals are Complete in accordance with Emergency Department Policy. 19:24 Patient left the ED. alc Signatures: Davis Jerome RN RN ed Juve Castillo RNP [facility] Molly Hoffman MD MD jtv Crump, Alayna, RN RN alc Lecuyer, Kelly, RN RN kal Martinez, Erin erm Name Value Range Interpretation Code Description Data Allyson rce(s) Supporting Document(s) ID Date Data Source [id number] 03/03/2020 04:32:00 PM [facility] Name: NAILA ERIC [facility] Rec #: [id number] : 1995 Age/Sex: 24F Date of Service: 03/03/20 DISPOSITION SUMMARY Discharge Summary [facility] Name:Naila Eric Emergency Department Age:24 yrs Sex:Female :1995 Arrival:03/03/2020 16:32 Departure Date03/03/2020 Departure Time19:24 Private MD:Raad Arora MD Outcome: Discharge Location: Home/Self Care Condition: Good Chief Complaint: Allergic Reaction Diagnosis: Palpitations Prescriptions: Follow up: Alin Smalls MD Custom Notes: <span>Naila called Dr. Smalls's office tomorrow for</span><span> follow-up appointment.</span><span> I have given you an order</span><span> slip for an outpatient</span><span> Holter monitor.</span><span> Your Covid test was negative.</span><span>
</span> Attending Physician: Molly Hoffman MD Private MD: Raad Arora MD Mid Level Provider: Juve Castillo RNP Followup Physician: Alin Smalls MD Orders: Cbc With Auto Differential, Comprehensive Metabolic Prof., Lipase, Partial Thromboplastin Time, Prothrombin Time, Troponin I, CXR Portable (Chest Pain), Emergency Room EKG Order - Use EKG Work-Up /Quick Select, Cardiology EKG Interpretation - Choose Reason for Test, Iv Saline Lock, Place Patient On Monitor, Beta Hcg,Qualitative, POC - Collect COVID-19 swab Discharge Instruction: Discharge Summary Sheet, Palpitations, Medication Reconciliation, Fax Visit Summary for Raad Arora MD Name Value Range Interpretation Code Description Data Allyson rce(s) Supporting Document(s) ID Date Data Source [id number] 03/03/2020 06:09:00 PM [facility] Name Value Range Interpretation Code Description Data Allyson rce(s) Supporting Document(s) PT 9.4-12.5 Normal (applies to non-numeric results) [facility] INR Normal (applies to non-numeric results) [facility] The use of the INR is restricted to garret ents on stable oral anticoagulant. Therapeutic Range: 2.0-3.0 High Risk Values: 2.5-3.5 ID Date Data Source [id number] 03/03/2020 06:09:00 PM [facility] Name Value Range Interpretation Code Description Data Allyson rce(s) Supporting Document(s) PTT 25.1-36.5 Normal (applies to non-numeric resul ts) [facility] ID Date Data Source [id number] 03/03/2020 06:08:00 PM [facility] Name Value Range Interpretation Code Description Data Allyson rce(s) Supporting Document(s) Troponin I 0.000-0.045 Normal (applies to non-numeric resu lts) [facility] ID Date Data Source [id number] 03/03/2020 06:05:00 PM [facility] Name Value Range Interpretation Code Description Data Allyson rce(s) Supporting Document(s) Beta HCG Screen,Qualitative Negative Normal (appli es to non-numeric results) [facility] ID Date Data Source [id number] 03/03/2020 06:05:00 PM [facility] Name Value Range Interpretation Code Description Data Allyson rce(s) Supporting Document(s) Sodium 140 mmol/L 137-145 Normal (applies to non-numeric resul ts) [facility] Potassium 3.5-5.1 Normal (applies to non-numeric resul ts) [facility] Chloride 108 mmol/L 98-112 Normal (applies to non-numeric resul ts) [facility] Carbon Dioxide CO2 22.0-33.0 Normal (applies to non-numer ic results) [facility] Anion Gap 4.0-11.0 Normal (applies to non-numeric resul ts) [facility] BUN 7 mg/dL 7-17 Normal (applies to non-numeric resul ts) [facility] Creatinine 0.70-1.20 Normal (applies to non-numeric resul ts) [facility] GFR >60 Normal (applies to non-numeric results) [facility] Result based on MDRD formula. Glucose Level 119 mg/dL 74-99 Above high normal [facility] The reference range is only applicable w hen fasting. Calcium-Uncorrected 8.4-10.2 Normal (applies to non-nume marce results) [facility] Corrected Calcium 8.4-10.2 Normal (applies to non-numeri c results) [facility] Bilirubin,Total 0.2-1.3 Normal (applies to non-numeric results) [facility] SGOT(AST) 26 U/L 14-36 Normal (applies to non-numeric resul ts) [facility] SGPT(ALT) 42 U/L 9-52 Normal (applies to non-numeric resul ts) [facility] Alkaline Phosphatase 64 U/L 38-126 Normal (applies to non-num gretchen results) [facility] can increase Alkaline Phosp le vels up to 2 times the normal adult value. Normal values for children and adolescents are 2 to 3 times the normal adult value. Total Protein 6.3-8.2 Normal (applies to non-numeric re sults) [facility] Albumin 3.5-5.0 Normal (applies to non-numeric resul ts) [facility] ID Date Data Source [id number] 03/03/2020 06:05:00 PM EST [facility] Name Value Range Interpretation Code Description Data Allyson rce(s) Supporting Document(s) Lipase 47 U/L 73-393 Below low normal [facility] ID Date Data Source [id number] 03/03/2020 05:37:00 PM EST [facility] Name Value Range Interpretation Code Description Data Allyson rce(s) Supporting Document(s) White Blood Count 4.8-10.8 Normal (applies to non-numeri c results) [facility] Red Blood Count 3.68-5.22 Normal (applies to non-numeric results) [facility] Hemoglobin 11.2-15.7 Normal (applies to non-numeric resul ts) [facility] Hematocrit 34.1-44.9 Normal (applies to non-numeric resul ts) [facility] Mean Corpuscular Volume 81-99 Normal (applies to non- numeric results) [facility] Mean Corpuscular Hemoglobin 27.0-33.0 Normal (appli es to non-numeric results) [facility] Mean Corpuscular HGB Conc 32.0-36.0 Normal (applies to no n-numeric results) [facility] Red Cell Distribution Width 11.5-14.5 Normal (appli es to non-numeric results) [facility] Platelet Count 262 X10 3/uL 130-450 Normal (applies to non-numeric results) [facility] Mean Platelet Volume 9.5-12.7 Below low normal [facility] Imm Grans% (AUTO) 0 % 0-2 Normal (applies to non-numeri c results) [facility] Neutrophils % (AUTO) 58 % 40-75 Normal (applies to non-num gretchen results) [facility] Lymphocytes % (AUTO) 35 % 21-46 Normal (applies to non-num gretchen results) [facility] Monocytes % (AUTO) 5 % 5-12 Normal (applies to non-numer ic results) [facility] Eosinophils % (AUTO) 2 % 1-5 Normal (applies to non-num gretchen results) [facility] Basophils % (AUTO) 0 % 0-1 Normal (applies to non-numer ic results) [facility] Imm Grans# (AUTO) 0.0-0.5 Normal (applies to non-numeri c results) [facility] Neutrophils # (AUTO) 1.5-8.1 Normal (applies to non-num gretchen results) [facility] Lymphocytes # (AUTO) 1.0-3.1 Normal (applies to non-num gretchen results) [facility] Monocytes # (AUTO) 0.2-1.3 Normal (applies to non-numer ic results) [facility] Eosinophils# (AUTO) 0.0-0.5 Normal (applies to non-nume marce results) [facility] Basophils # (AUTO) 0.0-0.1 Normal (applies to non-numer ic results) [facility] ID Date Data Source [id number] 03/04/2020 01:13:00 PM EST [facility] Name: NAILA ERIC : 1995 Age/Sex: 24F Ordering Provider: JUS Castellanos Med Rec #: [id number] Reg Status:DEP ER Room #: Date of Service: 03/03/20 Report Number: [id number] cc: Raad Arora MD; JUS Castellanos Send Report To: Reason for exam: Baseline SINUS RHYTHM WITH SINUS ARRHYTHMIA NORMAL ECG Physician Meat Cutting Teacher: Dr. Jerel Swartz M.D. ECG HEART RATE: 89 /min ECG RR INTERVAL: 672 ms ECG P DURATION: 111 ms ECG QRS DURATION: 95 ms ECG KS INTERVAL: 159 ms ECG QT INTERVAL: 349 ms ECG QTC INTERVAL: 399 ms Q-T dispersion: ms ECG P AXIS: 42 deg ECG QRS AXIS: 35 deg ECG T AXIS: 30 deg REPORT SIGNATURE ON FILE 03/04/20 1313 Reported By: Jerel Swartz MD <<Signature on File>> Exam Date/Time: 03/03/20 3338 Order #: [id number] Dictation Date/Time: 03/04/20 1313 Transcribed Date/Time: 03/04/20 1313 Signal Helper: FITO Name Value Range Interpretation Code Description Data Allyson rce(s) Supporting Document(s) ID Date Data Source [id number] 03/10/2020 01:10:00 PM [facility] Name: NAILA ERIC : 1995 Age/Sex: 24F Ordering Provider: DO Juma Addison Rec #: [id number] Reg Status: [facility] ER Room #: Date of Service: 03/03/20 Report Number: [id number] cc:Raad Arora MD Send Report To: [id number] XRP/XR Chest Xray Portable Reason for exam: _PAIN - CHEST Comparison is made to 11/26/19 The study is a re-dictation as the original dictation was misplaced. The study is evaluated at the time of evaluation with initial interpretations generated and conveyed to the ER at the time of examination. FINDINGS: There is no evidence of acute pulmonary disease. The heart is not enlarged. There is no hilar adenopathy. IMPRESSION: No evidence of significant acute pulmonary disease. Fluoroscopy time in seconds: Number of Exposures: Time Portable Image Performed: 1705 Contrast Agent in ml: Method of Administration: REPORT SIGNATURE ON FILE Reported By: Yeyo Goetz MD <Electronically signed by Yeyo Goetz MD> 03/11/20 1244 Dictation Date/Time: 03/10/20 1200 Transcribed Date/Time: 03/10/20 1310 Signal Helper: ANGEL Name Value Range Interpretation Code Description Data Allyson rce(s) Supporting Document(s) ID Date Data Source [id number] 03/04/2020 02:22:00 PM EST [facility] Name: NAILA ERIC : 1995 Age/Sex: 24F Ordering Provider: Janna Sheriff DO Med Rec #: [id number] Reg Status:DEP ER Room #: Date of Service: 03/03/20 Report Number: [id number] cc: Raad Arora MD; Janna Sheriff DO Send Report To: Reason for exam: Palpitations SINUS RHYTHM NORMAL ECG Physician Meat Cutting Teacher: Dr. Jerel Swartz M.D. ECG HEART RATE: 72 /min ECG RR INTERVAL: 824 ms ECG P DURATION: 122 ms ECG QRS DURATION: 97 ms ECG KS INTERVAL: 173 ms ECG QT INTERVAL: 371 ms ECG QTC INTERVAL: 392 ms Q-T dispersion: ms ECG P AXIS: 35 deg ECG QRS AXIS: 34 deg ECG T AXIS: 30 deg REPORT SIGNATURE ON FILE 03/04/20 1422 Reported By: Jerel Swartz MD <<Signature on File>> Exam Date/Time: 03/03/20 1834 Order #: [id number] Dictation Date/Time: 03/04/201421 Transcribed Date/Time: 03/04/20 1422 Signal Helper: FITO Name Value Range Interpretation Code Description Data Allyson rce(s) Supporting Document(s) ID Date Data Source [id number] 01/29/2020 12:00:00 AM EST [facility] Name Value Range Interpretation Code Description Data Allyson rce(s) Supporting Document(s) 2019-nCoV RNA XXX MARINO+probe-Imp [facility] This lab was ordered by [facility] and reported by [employer] ID Date Data Source [id number] 02/04/2020 03:03:00 PM EST [facility] Name Value Range Interpretation Code Description Data Allyson rce(s) Supporting Document(s) COVID-19, [facility] TO [employer] Not Detected Not Detect. No rmal (applies to non- numeric results) [facility]. The COVID-19 assay has been cleared by the U.S. Food andDrug Administration under the Emergency Use Authorization(EUA). [facility] [employer] is designated as a highcomplexity laboratory by the Clinical Laboratory ImprovementAmendments of 1988 (CLIA) and is qualified to perform thistest. ASSAY INFORMATION: Real Time RT-PCR *Not Detected* Please consider re- collection of a new specimen, asclinically indicated. ID Date Data Source [id number] 02/18/2020 11:05:00 PM EST [facility] COVID-19 Specimen Source [facility] Name Value Range Interpretation Code Description Data Allyson rce(s) Supporting Document(s) SARS-CoV-2 RNA (BR) result NotDetected Pat l (applies to non-numeric results) [facility] Please consider re-collection of a new s pecimen, if clinically indicated. The COVID-19 assay is under Emergency Use Authorization (EUA) by the U.S. Food and Drug Administration. [facility] is designated as a high complexity laboratory by the Clinical Laboratory Improvement Amendments of 1988 (CLIA) and is qualified to perform this test. ASSAY INFORMATION: Real Time RT-PCR Patient samples for this assay have been pooled. All positive samples have been individually repeated for confirmation. The pooling protocol is pending FDA review. Testing Performed by: [employer] [facility] [place] [address] [place] [address] phone: Alex Magana M.D. Museum Tour Guide ID Date Data Source [id number] 11/26/2019 11:39:00 AM EDT [facility] Name: NAILA ERIC [facility] Rec #: [id number] : 1995 Age/Sex: 24F Date of Service: 11/26/19 DISPOSITION SUMMARY Discharge Summary [facility] Name:Naila Eric Emergency Department Age:24 yrs Sex:Female :1995 Arrival:11/26/2019 11:39 Departure Date11/26/2019 Departure Time16:28 Private MD:Raad Arora MD Outcome: Discharge Location: Home/Self Care Condition: Good Chief Complaint: Palpitations Diagnosis: Palpitations Prescriptions: Follow up: Alin Smalls MD Custom Notes: <span>Wear the Holter monitor for 48 hours then return it to the cardiology office.</span><span> Please call the cardiology office for follow-up</span><span> <span>for either later this week or next week.</span><span> You can follow-up with any of the cardiologists <span>at the office.</span></span></span><span><span>
</span></span><s larsen><span><span>Return for worsening symptoms or any additional concerns.</span></span></span> Attending Physician: Janna Sheriff DO Private MD: Raad Arora MD Mid Level Provider: Followup Physician: Alin Smalls MD Orders: Cbc With Auto Differential, Comprehensive Metabolic Prof., Lipase, Partial Thromboplastin Time, Prothrombin Time, Troponin I, TSH, Free T4 (free Thyroxine), Tick Disease Ab Panel (ref), D-Dimer, Beta Hcg,Qualitative, Acetaminophen Level, ETOH, Salicylate, Emergency Room EKG Order - Use EKG Work-Up /Quick Select, Cardiology EKG Interpretation - Choose Reason for Test, Xr Ch est 2 View [PA & LAT], Iv Saline Lock, Place Patient On Monitor, LORazepam, Emergency Room EKG Order - Use EKG Work-Up /Quick Select, Cardiology EKG Interpretation - Choose Reason for Test, Echocardiogram Complete, UDS, Collect Urine - Clean Catch, Aspirin, Holter Monitoring Discharge In struction: Discharge Summary Sheet, Palpitations, Ambulatory Cardiac Monitoring, Work release form, Medication Reconciliation, Fax Visit Summary for Raad Arora MD Name Value Range Interpretation Code Description Data Allyson rce(s) Supporting Document(s) ID Date Data Source [id number] 11/26/2019 11:39:00 AM EDT [facility] Name: NAILA ERIC [facility] Rec #: [id number] : 1995 Age/Sex: 24F Date of Service: 11/26/19 PHYSICIAN CHART Physician Documentation [facility] Name: Naila Eric Age: 24 yrs Sex: Female : 1995 Arrival Date: 11/26/2019 Time: 11:39 Bed 8 Private MD: Raad Arora ED Physician Janna Sheriff HPI: 11/25 12:13 This 24 yrs old Female presents to ER via Walk-In rc3 with complaints of Palpitations. 12:13 Patient is a 24-year-old female who states she is had rc3 palpitations on and off for the past 1 to 2 years occurs maybe 1 time a day. She states she feels a fluttering in her chest and her smart watch occasionally alarms when her heart rates 120-140. Seems to be not exertional. She denies associated dizziness, nausea, diaphoresis, shortness of breath, dyspnea on exertion. No recent trauma, travel, immobilization. No lower extremity pain or swelling. She denies syncope during exertion in the past. She does state that she has a history of spontaneous syncope in the past and has been diagnosed with pseudoseizure. She states she was seen in an outside ER 1 time previously for this and was told her EKG was normal she states she saw a butane compressor operator once for this and had a normal EKG at that time as well. She has not followed with anyone ever since. Symptoms are ongoing and beginning to concern her so she presents for evaluation. She states she did have some symptoms this morning but they have since resolved. She states when her heart rate is in the 140s s he appreciates tingling in both arms. No chest pain or pressure no pain rating to the back no abdominal pain.. 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 None - PMHx: None; - PSHx: Appendectomy; L5 S1 fusion; - Med Reconciliation:: Green Alert: The patient's med list is complete to the best of the nurse's/provider's knowledge. Medications reviewed, verbally from patient/family. - Immunization history: All immunizations are up to date. - Advance directive: There is no existing advanced directive. Information offered. - Family History:: mother is healthy, Father is healthy. - Social History: Smoking status (Tobacco): Patient states he/she has never smoked tobacco. Preferred Language: Greek. ROS: 12:18 Constitutional: Negative for fever. Head Negative for Pain. rc3 ENT: Negative for acute changes. Neck: Negative for pain with movement, pain at rest, stiffness. Cardiovascular: Positive for palpitations, Negative for chest pain, chest wall pain, edema, orthopnea, paroxysmal nocturnal dyspnea. Respiratory: Negative for cough, shortness of breath, dyspnea on exertion, wheezing. Abdomen/GI: Negative for abdominal pain, nausea, vomiting, diarrhea. Back: Negative for decreased range of motion, pain at rest, pain with movement. MS/extremity: Negative for acute changes, injury or acute deformity, decreased range of motion, pain, swelling, tenderness, tingling, See HPI. Skin: Negative for diaphoresis, rash. Neuro: Negative for acute changes, altered mental status, diplopia, dizziness, gait disturbance, headache, numbness, seizure activity, speech changes, syncope, near syncope, tingling, visual changes, weakness, See HPI. Exam: 12:19 Constitutional: The patient appears to have no acute rc3 distress, appears alert, appears to be awake, appears comfortable, is not diaphoretic, does not appear to be toxic, appears well developed, is well groomed, well hydrated, appears well nourished. 12:19 Head/face: Normocephalic, atraumatic. 12:19 Eyes: Anicteric, no pallor. 12:19 ENT: Posterior pharynx: is normal, airway is patent, no erythema, no exudate, no peritonsilar mass, no pooling of secretions, no swelling, normal tonsil apperance, normal sized tonsils, normal uvula appearance, normal uvula size, Voice: is normal. 12:19 Neck: External neck: is normal, Thyroid: appears normal, Trachea: is midline with no obvious abnormalities, ROM/movement: is normal. 12:19 Chest/axilla: Inspection: normal, Palpation: is normal. 12:19 Cardiovascular: Rate: tachycardic, Rhythm: regular, Pulses: no pulse deficits are appreciated, Pulses are 2+ in right radial artery, right dorsalis pedis artery, left radial artery and left dorsalis pedis artery. Heart sounds: normal, Edema: is not appreciated, JVD: is not appreciated. 12:19 Respiratory: the patient does not display signs of respiratory distress, Respirations: normal, Breath sounds: are normal. 12:19 Abdomen/GI: Inspection: abdomen appears normal, Bowel sounds: active, No bruit, Palpation: abdomen is soft and non-tender, in all quadrants, involuntary guarding, is not appreciated, voluntary guarding, is not appreciated, rebound tenderness, is not appreciated. 12:19 : CVA tenderness, is absent. 12:19 Musculoskeletal/extremity: Extremities: all appear grossly normal, with no appreciated pain with palpation, ROM: intact in all extremities, full active range of motion, in all extremities, Circulation is intact in all extremities. Perfusion: the patient is normally perfused throughout, pink, warm, noted to have brisk capillary refill, Calves: are non-tender, have equal circumference. 12:19 Skin: Appearance: Color: normal in color, pink, Temperature: normal temperature, Moisture: normal moisture, petechiae, not noted, ecchymosis, not noted, flushing, not noted, diaphoresis is not appreciated. 12:19 Neuro: Orientation: is normal, Mentation: is normal, Cranial nerves: No facial motor asymmetry, Motor: moves all fours, Sen sation: no obvious gross deficits. Vital Signs: 11:53 Weight 99.79 kg; Height 5 ft. 6 in. (167.64 cm); sm6 11:56 BP 138 / 86; Pulse 112; Resp 16; Temp 97.8(TE); Pulse Ox sm6 99% on R/A; 13:06 BP 129 / 87; Pulse 95; Resp 18; Pulse Ox 99% on R/A; awr 14:06 BP 110 / 77; Pulse 106; Resp 20; Pulse Ox 98% on R/A; awr 14:49 BP 111 / 70; Pulse 88; Resp 20; Pulse Ox 97% on R/A; awr 16:06 BP 106 / 65; Pulse 81; Resp 18; Pulse Ox 97% on R/A; Pain awr 1/10; 11:53 Body Mass Index 35.51 (99.79 kg, 167.64 cm) sm6 MDM: 11:59 Patient medically screened. rc3 12:22 ECG: The ECG on this patient demonstrates Other Normal rc3 sinus rhythm, rate 97, normal axis, normal intervals, no ST elevations or depressions, T wave inversion in lead III only, no EKG findings to suggest WPW, LGL, Brugada, prolonged QT, hypertrophic obstructive cardiomyopathy, arrhythmogenic RV dysplasia, no priors available for comparison. 12:40 ED course: Heart rate currently 93 and sinus on telemetry.. rc3 12:41 ED course: 2 view chest x-ray read: NAD. Images also rc3 reviewed by me.. 13:16 ECG: The ECG on this patient demonstrates Other Patient had rc3 episode of palpitations and EKG was repeated sinus rhythm, rate 77, normal axis, normal intervals, no ST elevations or depressions, T wave inversion in lead III. 15:24 ED course: Echo read: Normal left ventricular size systolic rc3 function LVEF 6065%. No obvious segmental wall motion abnormalities noted. Trivial mitral regurg.. 15:29 ED course: Patient overall appears well while here. Initial rc3 work-up reassuring. I have observed some episodes of tachycardia but appears to be sinus tachycardia. She is wearing a 48-hour Holter monitor. We discussed the follow-up plan and return precautions. Patient appears to be stable for discharge. Will ask her to do the Holter and then follow-up with cardiology.. 17:31 Data reviewed: vital signs, nurses notes, lab test rc3 result(s), EKG, radiologic studies. Counseling: I had a detailed discussion with the patient and/or guardian regarding: lab results, radiology results, diagnosis, the need for outpatient follow up, to return to the emergency department if symptoms worsen or persist or if there are any questions or concerns that arise at home. 11/25 12:12 Order name: Cbc With Auto Differential; Complete Time: 12:41rc3 11/25 12:41 Interpretation: WBC 5.8; HGB 13.2; HCT 37.9; PLT 268; Neut% rc3 (AUTO) 53. 11/25 12:12 Order name: Comprehensive Metabolic Prof.; Complete Time: rc3 13:17 11/25 13:17 Interpretation: NA 140; K 4.0; CL 110; CO2 25.0; GAP 5.0; rc3 BUN 8; CREAT 0.75; Glom Filtration > 90; GLU 101; CA 8.6; Corrected CA 8.7; T Bili 0.3; SGOT(AST) 38; SGPT(ALT) 57; ALK PHOS 72; TP 7.4; ALB 3.9; Minimal elevation AST and ALT no priors available for comparison. 11/25 12:12 Order name: Lipase; Complete Time: 13:17 3 11/25 13:18 Interpretation: LIP 33. 3 11/25 12:12 Order name: Partial Thromboplastin Time; Complete Time: rc3 14:29 11/25 14:29 Interpretation: PTT 31.2. 3 11/25 12:12 Order name: Prothrombin Time; Complete Time: 14:29 3 11/25 14:29 Interpretation: PT 11.1; INR 0.96. 3 11/25 12:12 Order name: Troponin I; Complete Time: 13:17 3 11/25 13:18 Interpretation: TROP I < 0.045. 3 11/25 12:12 Order name: TSH; Complete Time: 13:17 3 11/25 13:18 Interpretation: TSH 1.050. 3 11/25 12:12 Order name: Free T4 (free Thyroxine); Complete Time: 13:17 [facility] 11/25 13:18 Interpretation: FreeT4 1.26. [facility] 11/25 12:12 Order name: Tick Disease Ab Panel (ref) [facility] 11/25 12:12 Order name: D-Dimer; Complete Time: 14:29 [facility] 11/25 14:29 Interpretation: D-Dimer Quant < 215. [facility] 11/25 12:51 Order name: Beta Hcg,Qualitative; Complete Time: 14:29 [facility] 11/25 14:29 Interpretation: Beta HCG,Screen Negative. [facility] 11/25 12:51 Order name: Acetaminophen Level; Complete Time: 14:29 [facility] 11/25 14:29 Interpretation: Aceta < 2.0. [facility] 11/25 12:51 Order name: ETOH; Complete Time: 14:29 [facility] 11/25 14:29 Interpretation: ETOH < 10.0. [facility] 11/25 12:51 Order name: Salicylate; Complete Time: 14:29 [facility] 11/25 14:29 Interpretation: RITA < 1.7. [facility] 11/25 12:00 Order name: Emergency Room EKG Order - Use EKG Work-Up 3 /Quick Select; Complete Time: 12:10 11/25 12:00 Order name: Cardiology EKG Interpretation - Choose Reason 3 for Test; Complete Time: 14:53 11/25 12:12 Order name: Xr Chest 2 View [PA & LAT] [facility] 11/25 12:12 Order name: Iv Saline Lock; Complete Time: 12:17 [facility] 11/25 12:12 Order name: Place Patient On Monitor; Complete Time: 12:17 [facility] 11/25 12:49 Order name: Emergency Room EKG Order - Use EKG Work-Up [facility] /Quick Select; Complete Time: 12:55 11/25 12:49 Order name: Cardiology EKG Interpretation - Choose Reason 3 for Test; Complete Time: 14:53 11/25 12:49 Order name: Echocardiogram Complete [facility] 11/25 14:30 Order name: Holter Monitoring; Complete Time: 14:53 3 Dispensed Medications: 12:27 Drug: LORazepam 1 mg [lorazepam 2 mg/mL injection solution awr (0.5 mL)] Route: IVP; Site: right antecubital; 13:04 Drug: Aspirin 162 mg [aspirin 81 mg chewable tablet (2 sm6 tabs)] Route: PO; 15:36 Follow up: Response: No adverse reaction alc Disposition Summary: 11/26/19 15:30 Discharge Ordered Location: Home/Self Care rc3 Condition: Good rc3 Diagnosis - Palpitations rc3 Followup: rc3 - With: Alin Smalls MD - When: Later this week or next week - Reason: Recheck today's complaints Followup: rc3 - With: Emergency Department - When: - Reason: Worsening of condition Discharge Instructions: - Discharge Summary Sheet rc3 - Palpitations rc3 - Ambulatory Cardiac Monitoring rc3 Forms: - Work release form rc3 - Medication Reconciliation rc3 Signatures: Dispatcher [employer] Zuleyma Triplett RN RN sm6 Janna Sheriff DO DO rc3 Babs Barnes RN RN alc Reed, Anthony, RN RN awr Corrections: (The following items were deleted from the chart) 12:18 12:13 Patient is a 24-year-old female who states she is had rc3 palpitations on and off for the past 1 to 2 years occurs maybe 1 time a day. She states she feels a fluttering in her chest and her smart watch occasionally alarms when her heart rates 1 20-1 40. Seems to be not exertional. She denies associated dizziness, nausea, diaphoresis. rc3 15:36 12:51 Collect Urine, Clean Catch ordered. rc3 alc Name Value Range Interpretation Code Description Data Allyson rce(s) Supporting Document(s) ID Date Data Source [id number] 11/26/2019 11:39:00 AM EDT [facility] Name: NAILA ERIC [facility] Rec #: [id number] : 1995 Age/Sex: 24F Date of Service: 11/26/19 NURSE CHART Nurse's Notes [facility] Name: Naila Eric Age: 24 yrs Sex: Female : 1995 Arrival Date: 11/26/2019 Time: 11:39 Bed 8 Private MD: Raad Arora Diagnosis: Palpitations Presentation: 11/25 11:51 Transition of care: patient was not received from another [facility] setting of care. Presenting complaint: Patient states - palpitations x 1 yr usually daily lasting few minutes to hrs weakness in arms butterflies in chest. Have you travelled in the last 30 days? No. Have you had contact with an individual with a confirmed diagnosis of Ebola or COVID-19? No. 11:51 Method Of Arrival: Walk-In [facility] 11:51 Acuity: Urgent - 3 [facility] Triage Assessment: 11:52 Suicide Screening: Have you had thoughts of harming [facility] yourself or others? No. The patient appears to have no apparent distress, The patient is cooperative. Patient states the pain is currently a 4 / 10 The patient complains of pain in mid-sternal area. Patient denies any radiating pain. The patient states the pain began 1030. The quality of the pain is described as fluttering The pain is described as continuous. 16:05 SEPSIS SCREEN: A Confirmed or Suspected Infection is awr Unknown. 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 None - PMHx: None; - PSHx: Appendectomy; L5 S1 fusion; - Med Reconciliation:: Green Alert: The patient's med list is complete to the best of the nurse's/provider's knowledge. Medications reviewed, verbally from patient/family. - Immunization history: All immunizations are up to date. - Advance directive: There is no existing advanced directive. Information offered. - Family History:: mother is healthy, Father is healthy. - Social History: Smoking status (Tobacco): Patient states he/she has never smoked tobacco. Preferred Language: Greek. Screenin:56 AUDIT 1. How often do you have a drink containing alcohol? sm6 Never (0 points). Drug Abuse Screening Test: 1. Have you used drugs other than those required for medical reasons? Yes (1 point) Patient Response: only marijuana. Abuse screen: Denies threats or abuse. Nutritional screening: No deficits noted. 16:05 Patient has no identifiable fall risk (Lott Scale: 0 awr points). Assessment: 12:02 See Triage Assessment. Patient states the pain is currently awr a 4 / 10 The patient complains of pain in mid-sternal area. The patient appears to have some mild discomfort, The patient is behaving appropriately according to age, cooperative. Neuro: Level of Consciousness is awake, alert, Patient is oriented to person, place and time. Respiratory: Airway is patent. Respiratory effort is even, unlabored, Respiratory pattern is regular, symmetrical, Breath sounds are clear bilaterally. GI: The patient denies nausea, vomiting. Vital Signs: 11:53 Weight 99.79 kg; Height 5 ft. 6 in. (167.64 cm); sm6 11:56 BP 138 / 86; Pulse 112; Resp 16; Temp 97.8(TE); Pulse Ox sm6 99% on R/A; 13:06 BP 129 / 87; Pulse 95; Resp 18; Pulse Ox 99% on R/A; awr 14:06 BP 110 / 77; Pulse 106; Resp 20; Pulse Ox 98% on R/A; awr 14:49 BP 111 / 70; Pulse 88; Resp 20; Pulse Ox 97% on R/A; awr 16:06 BP 106 / 65; Pulse 81; Resp 18; Pulse Ox 97% on R/A; Pain awr 1/10; 11:53 Body Mass Index 35.51 (99.79 kg, 167.64 cm) sm6 ED Course: 11:40 Patient arrived in ED. smr 11:51 Raad Arora MD is Private Physician. 6 11:52 Triage completed. sm6 11:54 Arm band placed on right wrist. Patient has correct armband sm6 on for positive identification. 11:58 Nima Hernandez, MIGUEL is Primary Nurse. sm6 11:58 Janna Sheriff DO is Attending Physician. 3 12:02 personnel monitor on. Pulse on is on. NIBP on. awr 12:10 An EKG was obtained and reviewed by Janna Sheriff DO. alc 12:10 Cardiology EKG Interpretation - Choose Reason for Test Sent.alc 12:17 Labs drawn by ED staff. Inserted peripheral IV: 20 gauge in awr right antecubital area and blood collected. 12:19 Radiology: Patient to X-ray at 12:20. awr 12:20 Xr Chest 2 View [PA & LAT] Sent. awr 12:23 Radiology: Patient returned from X-Ray at 12:23. awr 12:55 Additional EKG done Reviewed by Physician Janna Sheriff DO. alc 12:55 Cardiology EKG Interpre tation - Choose Reason for Test Sent.alc 13:04 Radiology: The patient's bedside Echocardiogram was sm6 completed at 13:04. 13:04 Echocardiogram Complete Sent. sm6 14:40 Cardiology staff in placing Holter Monitor on patient. awr 14:41 Holter Monitoring Sent. awr 15:29 Alin Smalls MD is Referral Physician. rc3 16:05 No procedures ordered. awr 16:06 Discontinued IV intact, bleeding controlled, pressure awr dressing applied, No redness/swelling at site. Administered Medications: 12:27 Drug: LORazepam 1 mg [lorazepam 2 mg/mL injection solution awr (0.5 mL)] Route: IVP; Site: right antecubital; 13:04 Drug: Aspirin 162 mg [aspirin 81 mg chewable tablet (2 sm6 tabs)] Route: PO; 15:36 Follow up: Response: No adverse reaction alc Outcome: 15:30 Discharge ordered by MD. rc3 16:05 Patient verbalized understanding of disposition awr instructions. Patient has no functional deficits. 16:05 Patient discharged to home with significant other. 16:05 Condition: stable 16:05 Vitals are Complete in accordance with Emergency Department Policy. 16:28 Discharge instructions given to patient, family, Patient awr was instructed on discharge instructions, follow up and referral plans, No prescriptions given. 16:28 Patient left the ED. awr Signatures: Zuleyma Campos, RN RN 6 Janna Sheriff DO DO rc3 Babs Barnes RN RN alc Rozon, Sarah smr Reed, Anthony, RN RN awr Name Value Range Interpretation Code Description Data Allyson rce(s) Supporting Document(s) ID Date Data Source [id number] 11/30/2019 12:31:00 PM EDT [facility] Name: NAILA ERIC : [birth year] Age/Sex: 24F Ordering Provider: Janna Sheriff DO [facility] Rec #: [id number] Date of Service: 11/26/19 Report Number: [id number] cc: Raad Arora MD; Janna Sheriff DO Send Report To: Reason for Exam: Palpitations HOLTER FINDINGS: The patient was monitored for 48 hours. Twelve patient events were logged noting fast heart rate. these events were correlated with sinus rhythm with a rate ranging between 66 to 130 beats per minute. No episodes of ventricular tachycardia or abnormal supraventricular were observed with these events. The patient was noted to be predominantly in sinus rhythm with an average heart rateof 77 beats per minute, maximum heart rate of 170 beats per minute and a minimumheart rate of 47 beats per minute. No other arrhythmias were observed. REPORT SIGNATURE ON FILE 12/03/19 1333 Reported By: Alin Smalls MD <Electronically signed by Alin Smalls MD> Dictation Date/Time: 11/29/19 1556 Transcribed Date/Time: 11/30/19 1231 Signal Helper: SELWYN Name Value Range Interpretation Code Description Data Allyson rce(s) Supporting Document(s) ID Date Data Source [id number] 11/26/2019 12:49:00 PM EDT [facility] Name: NAILA ERIC : 1995 Age/Sex: 24F Ordering Provider: Janna Sheriff DO Med Rec #: [id number] Reg Status:REG ER Room #: Date of Service: 11/26/19 Report Number: [id number] cc: Raad Arora MD; Janna Sheriff DO Send Report To: Echocardiogram Complete Ordering Phys: Janna Sheriff DO Referring Phys: Janna Sheriff DO Exam Location: ER Exam Date: 11/26/2019 13:05 Ht (in): 66 Wt (lb): 220 Tech/RN: Rosalie Baker Indications: CP, PALPITATIONS (ER) BP 129 / 87 Rhythm: Sinus tachycardia Technical Quality: Contrast: Total Dose (mL): MEASUREMENTS (Male / Female) Normal Values 2D ECHO Measurement LV Diastolic Diameter PLAX 4.9 cm 4.2 - 6.0 / 3.9 - 5.4 cm LV Systolic Diameter PLAX 3 cm 2.1 - 4.0 cm IVS Diastolic Thickness 0.75 cm 0.6 - 1.1 / 0.6 - 1.0 cm LVPW Diastolic Thickness 0.74 cm 0.6 - 1.1 / 0.6 - 1.0 LV Relative Wall Thickness 0.3 Aortic Root Diameter 2.6 cm Aortic Root Diameter Index 1.2 cm/m2 LA Systolic Diameter LX 2.9 cm 3.0 - 4.1 / 2.7 - 3.9 cm LV Diastolic Volume MOD BP 105 ml LV Systolic Volume MOD BP 39.4 ml LV Ejection Fraction MOD BP 62.5 % >= 55 % LV Diastolic Volume MOD 4C 104 ml LV Systolic Volume MOD 4C 36.1 ml LV Ejection Fraction MOD 4C 65.3 % LV Diastolic Volume MOD 2C 103 ml LV Systolic Volume MOD 2C 38.3 ml LV Ejection Fraction MOD 2C 62.8 % LV Diastolic Length 4C 8 cm LV Systolic Length 4C 6 cm LV Diastolic Area 4C 31.6 cm2 LV Systolic Area 4C 16.2 cm2 LV Ejection Fraction 4C AL 65.2 % LV Diastolic Area 2C 32 cm2 LV Diastolic Length 2C 8.3 cm LV Systolic Area 2C 17.9 cm2 LV Systolic Length 2C 6.9 cm LV Ejection Fraction 2C AL 62.4 % LA Volume Index 15.4 cm3/m2 16 - 28 cm3/m2 Ascending Aorta Diameter 2.9 cm DOPPLER Measurement AV Peak Velocity 128 cm/s AV Peak Gradient 6.6 mmHg LVOT Peak Velocity 127 cm/s LVOT Peak Gradient 6.5 mmHg Mitral E Point Velocity 98.5 cm/s Mitral A Point Velocity 60.4 cm/s Mitral E to A Ratio 1.6 MV Area PHT 4.5 cm2 MV Deceleration Time 167 ms Mitral E to LV E' Lateral Ratio 7.6 LV E' Septal Velocity 10.2 cm/s Mitral E to LV E' Septal Ratio 9.7 FINDINGS Left Ventricle: The left ventricle is normal in size, wall thickness, chamber dimensions. The left ventricular ejection fraction is 60 to 65%. Normal diastolic function. No obvious segmental wall motion abnormalities noted. Right Ventricle: The right ventricle is normal in size, wall thickness and systolic function. Right Atrium: The right atrium is normal in size and function. The interatrial septum and inferior vena cava not well seen. Left Atrium: The left atrium is small in size. Mitral Valve: The mitral valve is normal in structure and leaflet excursion without evidence of prolapse or stenosis. Trivial mitral regurgitation. Aortic Valve: The aortic valve is probably trileaflet with normal leaflet excursion.] Limited evaluation]. No stenosis. No aortic regurgitation. Tricuspid Valve: The tricuspid valve is normal in structure and leaflet excursion. Trivial tricuspid regurgitation. Pulmonic Valve: The pulmonic valve is normal in structure and leaflet excursion.. No evidence of significant valvular pulmonic stenosis . No significant pulmonic regurgitation. Pericardium: No significant pericardial effusion. Aorta: The aortic root and proximal ascending aorta are normal in size. CONCLUSIONS Normal left ventricular size and systolic function (LVEF is 60 to 65%) No obvious segmental wall motion abnormalities noted. Trivial mitral regurgitation. REPORT SIGNATURE ON FILE 11/26/19 1515 Reported By: Lanette Shaffer MD <Electronically signed by Lanette Shaffer MD in OV> Exam Date/Time: 11/26/19 1249 Order #: [id number] Dictation Date/Time: 11/26/19 1305 Transcribed Date/Time: Signal Helper: Name Value Range Interpretation Code Description Data Allyson rce(s) Supporting Document(s) ID Date Data Source [id number] 11/26/2019 02:35:00 PM EDT [facility] Hospital Name: NAILA ERIC : 1995 Age/Sex: 24F Ordering Provider: Janna Sheriff DO Med Rec #: [id number] Reg Status:REG ER Room #: Date of Service: 11/26/19 Report Number: [id number] cc: Raad Arora MD; Janna Sheriff DO Send Report To: Reason for exam: CHEST PAIN;PALPITATIONS SINUS RHYTHM NORMAL ECG Physician Meat Cutting Teacher: Dr. Alin Smalls M.D. ECG HEART RATE: 77 /min ECG RR INTERVAL: 773 ms ECG P DURATION: 115 ms ECG QRS DURATION: 92 ms ECG KS INTERVAL: 151 ms ECG QT INTERVAL: 351 ms ECG QTC INTERVAL: 380 ms Q-T dispersion: ms ECG P AXIS: 30 deg ECG QRS AXIS: 27 deg ECG T AXIS: 17 deg REPORT SIGNATURE ON FILE 11/26/19 1435 Reported By: Alin Smalls MD <<Signature on File>> Exam Date/Time: 11/26/19 1250 Order #: [id number] Dictation Date/Time: 11/26/19 1435 Transcribed Date/Time: 11/26/19 1435 Signal Helper: FITO Name Value Range Interpretation Code Description Data Allyson rce(s) Supporting Document(s) ID Date Data Source [id number] 11/28/2019 11:28:00 PM EDT [facility] Name Value Range Interpretation Code Description Data Allyson rce(s) Supporting Document(s) TICK Ehrlichia chaffeensis IgG <1:64 Normal (ap plies to non-numeric results) [facility] ADDITIONAL INFORMATIO N This test was developed using an analyte specific reagent. Its performance characteristics were determined by [facility] in a manner consistent with CLIA requirements. This test has not been cleared or approved by the U.S. Food and Drug Administration. TICK Anaplasma phagcytophl IgG <1:64 Normal (ap plies to non-numeric results) [facility] ADDITIONAL INFORMATIO N This test was developed using an analyte specific reagent. Its performance characteristics were determined by [facility] in a manner consistent with CLIA requirements. This test has not been cleared or approved by the U.S. Food and Drug Administration. TICK Babesia microti IgG <1:64 Normal (applies to non -numeric results) [facility] ADDITIONAL INFORMATIO N This test was developed using an analyte specific reagent. Its performance characteristics were determined by [facility] in a manner consistent with CLIA requirements. This test has not been cleared or approved by the U.S. Food and Drug Administration. TICK Lyme Disease Serology Negative Normal (applies to n on-numeric results) [facility] No evidence of antibodies to B. burgdorf tutu detected. False negative results may occur in recently infected patients (<=2 weeks) due to low or undetectable antibody levels to B. burgdorferi. If recent exposure is suspected, a second sample should be collected and tested in 2-4 weeks. Test Performed by: [facility] - [address] [address] Die Cleaner: Juve Carmona M.D. Ph.D.; CLIA# [id number] ID Date Data Source [id number] 11/26/2019 02:29:00 PM EDT [facility] Name Value Range Interpretation Code Description Data Allyson rce(s) Supporting Document(s) PTT 25.1-36.5 Normal (applies to non-numeric resul ts) [facility] ID Date Data Source [id number] 11/26/2019 02:29:00 PM EDT [facility] Name Value Range Interpretation Code Description Data Allyson rce(s) Supporting Document(s) D-Dimer Quant <500 Normal (applies to non-numeric re sults) [facility] Negative for D-Dimer. This test has f ull FDA exclusion claim at a Negative cutoff value of 500 ng/mL FEU. When the d-dimer value is used in conjunction with the clinical pretest probability (PTP) assessment model to exclude DVT and PE, results less than 500 ng/mL are negative for DVT/PE. ID Date Data Source [id number] 11/26/2019 02:29:00 PM EDT [facility] Name Value Range Interpretation Code Description Data Allyson rce(s) Supporting Document(s) PT 9.4-12.5 Normal (applies to non-numeric results) [facility] INR Normal (applies to non-numeric results) [facility] The use of the INR is restricted to garret ents on stable oral anticoagulant. Therapeutic Range: 2.0-3.0 High Risk Values: 2.5-3.5 ID Date Data Source [id number] 11/26/2019 02:17:00 PM EDT [facility] Name Value Range Interpretation Code Description Data Allyson rce(s) Supporting Document(s) Salicylate 0.0-20.0 Normal (applies to non-numeric resul ts) [facility] ID Date Data Source [id number] 11/26/2019 02:17:00 PM EDT [facility] Name Value Range Interpretation Code Description Data Allyson rce(s) Supporting Document(s) Acetaminophen 10.0-30.0 Below low normal [facility] ID Date Data Source [id number] 11/26/2019 02:10:00 PM EDT [facility] Name Value Range Interpretation Code Description Data Allyson rce(s) Supporting Document(s) Ethanol Less than 10.0 Normal (applies to non-numeric r esults) [facility] ID Date Data Source [id number] 11/26/2019 02:04:00 PM EDT [facility] Name Value Range Interpretation Code Description Data Allyson rce(s) Supporting Document(s) Beta HCG Screen,Qualitative Negative Normal (appli es to non-numeric results) [facility] ID Date Data Source [id number] 11/26/2019 12:54:00 PM EDT [facility] Name Value Range Interpretation Code Description Data Allyson rce(s) Supporting Document(s) Sodium 140 mmol/L 137-145 Normal (applies to non-numeric resul ts) [facility] Potassium 3.5-5.1 Normal (applies to non-numeric resul ts) [facility] Chloride 110 mmol/L 98-112 Normal (applies to non-numeric resul ts) [facility] Carbon Dioxide CO2 22.0-33.0 Normal (applies to non-numer ic results) [facility] Anion Gap 4.0-11.0 Normal (applies to non-numeric resul ts) [facility] BUN 8 mg/dL 7-17 Normal (applies to non-numeric resul ts) [facility] Creatinine 0.70-1.20 Normal (applies to non-numeric resul ts) [facility] GFR >60 Normal (applies to non-numeric results) [facility] Result based on MDRD formula. Glucose Level 101 mg/dL 74-99 Above high normal [facility] The reference range is only applicable w hen fasting. Calcium-Uncorrected 8.4-10.2 Normal (applies to non-nume marce results) [facility] Corrected Calcium 8.4-10.2 Normal (applies to non-numeri c results) [facility] Bilirubin,Total 0.2-1.3 Normal (applies to non-numeric results) [facility] SGOT(AST) 38 U/L 14-36 Above high normal [facility] SGPT(ALT) 57 U/L 9-52 Above high normal [facility] Alkaline Phosphatase 72 U/L 38-126 Normal (applies to non-num gretchen results) [facility] can increase Alkaline Phosp le vels up to 2 times the normal adult value. Normal values for children and adolescents are 2 to 3 times the normal adult value. Total Protein 6.3-8.2 Normal (applies to non-numeric re sults) [facility] Albumin 3.5-5.0 Normal (applies to non-numeric resul ts) [facility] ID Date Data Source [id number] 11/26/2019 12:54:00 PM EDT [facility] Name Value Range Interpretation Code Description Data Allyson rce(s) Supporting Document(s) Free T4 (Free Thyroxine) 0.76-1.46 Normal (applies to non -numeric results) [facility] ID Date Data Source [id number] 11/26/2019 12:54:00 PM EDT [facility] Name Value Range Interpretation Code Description Data Allyson rce(s) Supporting Document(s) Thyroid Stimulate Hormone TSH 0.358-3.740 No rmal (applies to non-numeric results) [facility] ID Date Data Source [id number] 11/26/2019 12:54:00 PM EDT [facility] Name Value Range Interpretation Code Description Data Allyson rce(s) Supporting Document(s) Lipase 33 U/L 73-393 Below low normal [facility] ID Date Data Source [id number] 11/26/2019 12:49:00 PM EDT [facility] Name Value Range Interpretation Code Description Data Allyson rce(s) Supporting Document(s) Troponin I 0.000-0.045 Normal (applies to non-numeric resu lts) [facility] ID Date Data Source [id number] 11/26/2019 12:31:00 PM EDT [facility] Name Value Range Interpretation Code Description Data Allyson rce(s) Supporting Document(s) White Blood Count 4.8-10.8 Normal (applies to non-numeri c results) [facility] Red Blood Count 3.68-5.22 Normal (applies to non-numeric results) [facility] Hemoglobin 11.2-15.7 Normal (applies to non-numeric resul ts) [facility] Hematocrit 34.1-44.9 Normal (applies to non-numeric resul ts) [facility] Mean Corpuscular Volume 81-99 Normal (applies to non- numeric results) [facility] Mean Corpuscular Hemoglobin 27.0-33.0 Normal (appli es to non-numeric results) [facility] Mean Corpuscular HGB Conc 32.0-36.0 Normal (applies to no n-numeric results) [facility] Red Cell Distribution Width 11.5-14.5 Normal (appli es to non-numeric results) [facility] Platelet Count 268 X10 3/uL 130-450 Normal (applies to non-numeric results) [facility] Mean Platelet Volume 9.5-12.7 Below low normal [facility] Imm Grans% (AUTO) 0 % 0-2 Normal (applies to non-numeri c results) [facility] Neutrophils % (AUTO) 53 % 40-75 Normal (applies to non-num gretchen results) [facility] Lymphocytes % (AUTO) 38 % 21-46 Normal (applies to non-num gretchen results) [facility] Monocytes % (AUTO) 6 % 5-12 Normal (applies to non-numer ic results) [facility] Eosinophils % (AUTO) 2 % 1-5 Normal (applies to non-num gretchen results) [facility] Basophils % (AUTO) 1 % 0-1 Normal (applies to non-numer ic results) [facility] Imm Grans# (AUTO) 0.0-0.5 Normal (applies to non-numeri c results) [facility] Neutrophils # (AUTO) 1.5-8.1 Normal (applies to non-num gretchen results) [facility] Lymphocytes # (AUTO) 1.0-3.1 Normal (applies to non-num gretchen results) [facility] Monocytes # (AUTO) 0.2-1.3 Normal (applies to non-numer ic results) [facility] Eosinophils# (AUTO) 0.0-0.5 Normal (applies to non-nume marce results) [facility] Basophils # (AUTO) 0.0-0.1 Normal (applies to non-numer ic results) [facility] ID Date Data Source [id number] 11/26/2019 02:13:00 PM EDT [facility] Name: NAILA ERIC : 1995 Age/Sex: 24F Ordering Provider: Janna Sheriff DO Med Rec #: [id number] Reg Status: DEP ER Room #: Date of Service: 11/26/19 Report Number: [id number] cc:Raad Arora MD Send Report To: [id number] XRP/XR Chest 2 View [Pa & Lat] Reason for exam: PALPITATIONS;_PAIN - CHEST FINDINGS: The cardiac and mediastinal silhouettes appear normal and the lungs are clear. The bones and soft tissues are normal. The upper abdomen is unremarkable. IMPRESSION: No acute disease identifiable. REPORT DICTATED BY ROHIT CARRINGTON, REVIEWED AND SIGNED BY DR. PLASENCIA. Fluoroscopy time in seconds: 0 Number of Exposures: Time Portable Image Performed: Contrast Agent in ml: Method of Administration: REPORT SIGNATURE ON FILE Reported By: Rohit Plasencia MD <Electronically signed by Nataliia Plasencia MD> 11/27/19 0900 Dictation Date/Time: 11/26/19 1235 Transcribed Date/Time: 11/26/19 1413 Signal Helper: ANGEL Name Value Range Interpretation Code Description Data Allyson rce(s) Supporting Document(s) ID Date Data Source [id number] 11/26/2019 02:35:00 PM EDT [facility] Name: NAILA ERIC : 1995 Age/Sex: 24F Ordering Provider: Janan Sheriff DO Med Rec #: [id number] Reg Status:REG ER Room #: Date of Service: 11/26/19 Report Number: [id number] cc: Raad Arora MD; Janna Sheriff DO Send Report To: Reason for exam: Palpitations SINUS RHYTHM NORMAL ECG Physician Meat Cutting Teacher: Dr. Alin Smalls M.D. ECG HEART RATE: 97 /min ECG RR INTERVAL: 617 ms ECG P DURATION: 116 ms ECG QRS DURATION: 89 ms ECG KS INTERVAL: 154 ms ECG QT INTERVAL: 337 ms ECG QTC INTERVAL: 401 ms Q-T dispersion: ms ECG P AXIS: 34 deg ECG QRS AXIS: 23 deg ECG T AXIS: 18 deg REPORT SIGNATURE ON FILE 11/26/19 1435 Reported By: Alin Smalls MD <<Signature on File>> Exam Date/Time: 11/26/19 1202 Order #: [id number] Dictation Date/Time: 11/26/191434 Transcribed Date/Time: 11/26/19 143 Signal Helper: FITO Name Value Range Interpretation Code Description Data Allyson rce(s) Supporting Document(s) Procedure Social History Code Duration Value Status Description Data Source(s ) Alcohol intake 11/25/2020 12:00:00 AM EDT Ex-drinker (finding) comp leted Ex- drinker (finding) [facility] Alcohol intake 10/14/2020 12:00:00 AM EDT Ex-drinker (finding) comp leted Ex- drinker (finding) [facility] Tobacco use and exposure 09/25/2020 12:00:00 AM EDT Never used co mpleted Never used [facility] Smoking 09/25/2020 12:00:00 AM EDT Never smoker completed Never s moker [facility] Alcohol intake 09/25/2020 12:00:00 AM EDT Ex-drinker (finding) comp leted Ex- drinker (finding) [facility] Smoking 07/31/2020 12:00:00 AM EDT Never Smoker completed Never S moker eCW1 ([facility]) Smoking 07/31/2020 12:00:00 AM EDT Never Smoker completed Never S moker eCW1 ([facility]) Smoking 07/31/2020 12:00:00 AM EDT Never Smoker completed Never S moker eCW1 ([facility] Smoking 07/31/2020 12:00:00 AM EDT Never Smoker completed Never S moker eCW1 ([facility]) Smoking 07/31/2020 12:00:00 AM EDT Never Smoker completed Never S moker eCW1 ([facility] Smoking 07/31/2020 12:00:00 AM EDT Never Smoker completed Never S moker eCW1 ([facility]) Smoking 07/31/2020 12:00:00 AM EDT Never Smoker completed Never S moker eCW1 ([facility]) Vital Signs ID Date Data Source UNK Name Value Range Interpretation Code Description Data Source(s) Systolic blood pressure 132 mm[Hg] 132 mm[Hg] [facility] Diastolic blood pressure 60 mm[Hg] 60 mm[Hg] [facility] Heart rate 92 /min 92 /min [facility] Respiratory rate 19 /min 19 /min [facility] Body height 165.1 cm 165.1 cm [facility] Body weight 91.627 kg 91.627 kg [facility] Body mass index (BMI) [Ratio] 33.61 kg/m2 33.61 kg/m2 [facility] Oxygen saturation in Arterial blood by Pulse oximetry 98 % 98 % [facility] Body weight 91.173 kg 91.173 kg [facility] Body mass index (BMI) [Ratio] 33.45 kg/m2 33.45 kg/m2 [facility] Oxygen saturation in Arterial blood by Pulse oximetry 98 % 98 % [facility] Systolic blood pressure 104 mm[Hg] 104 mm[Hg] [facility] Diastolic blood pressure 70 mm[Hg] 70 mm[Hg] [facility] Heart rate 89 /min 89 /min [facility] Body height 165.1 cm 165.1 cm [facility] Systolic blood pressure 110 mm[Hg] 110 mm[Hg] [facility] Body height 165.1 cm 165.1 cm [facility] Heart rate 98 /min 98 /min [facility] Diastolic blood pressure 70 mm[Hg] 70 mm[Hg] [facility] Body mass index (BMI) [Ratio] 33.78 kg/m2 33.78 kg/m2 [facility] Oxygen saturation in Arterial blood by Pulse oximetry 99 % 99 % [facility] Body weight 92.08 kg 92.08 kg [facility] Body mass index (BMI) [Ratio] 34.63 kg/m2 34.63 kg/m2 eCW1 ([facility]) Heart rate 80 /min 80 /min eCW1 ([facility]) Body weight 214.6 [lb_av] 214.6 [lb_av] eCW1 ([facility]) Body height 66.0 [in_i] 66.0 [in_i] eCW1 ([facility]) Systolic blood pressure 108 mm[Hg] 108 mm[Hg] e CW1 ([facility]) Diastolic blood pressure 78 mm[Hg] 78 mm[Hg] eCW1 ([facility]) Body mass index (BMI) [Ratio] 34.63 kg/m2 34.63 kg/m2 eCW1 ([facility]) Heart rate 80 /min 80 /min eCW1 ([facility]) Systolic blood pressure 108 mm[Hg] 108 mm[Hg] e CW1 ([facility]) Diastolic blood pressure 78 mm[Hg] 78 mm[Hg] eCW1 ([facility]) Body weight 214.6 [lb_av] 214.6 [lb_av] eCW1 ([facility]) Body height 66.0 [in_i] 66.0 [in_i] eCW1 ([facility]) Body mass index (BMI) [Ratio] 35.02 kg/m2 35.02 kg/m2 eCW1 ([facility]) Heart rate 80 /min 80 /min eCW1 ([facility]) Body weight 217.0 [lb_av] 217.0 [lb_av] eCW1 ([facility]) Body height 66.0 [in_i] 66.0 [in_i] eCW1 ([facility]) Systolic blood pressure 101 mm[Hg] 101 mm[Hg] e CW1 ([facility]) Diastolic blood pressure 70 mm[Hg] 70 mm[Hg] eCW1 ([facility]) Body mass index (BMI) [Ratio] 37.34 kg/m2 37.34 kg/m2 eCW1 ([facility]) Body temperature 98.5 [degF] 98.5 [degF] eCW1 ( [facility]) Heart rate 98 /min 98 /min eCW1 ([facility]) Body weight 231.4 [lb_av] 231.4 [lb_av] eCW1 ([facility]) Body height 66.0 [in_i] 66.0 [in_i] eCW1 ([facility]) Systolic blood pressure 122 mm[Hg] 122 mm[Hg] e CW1 ([facility]) Diastolic blood pressure 90 mm[Hg] 90 mm[Hg] eCW1 ([facility]) Body weight 245.00 [lb_av] 245.00 [lb_av] MEDEN T (Sumanth Jo MD) Body height 65 [in_i] 65 [in_i] SIMIN (Solitario Jo MD) 5'5" Systolic blood pressure 136 mm[Hg] 136 mm[Hg] M EDENT (Sumanth Jo MD) Diastolic blood pressure 79 mm[Hg] 79 mm[Hg] SIMIN (Sumanth Jo MD) Heart rate 73 /min 73 /min SIMIN (Jerod Jo MD) Oxygen saturation in Arterial blood by Pulse oximetry 98 % 98 % SIMIN (Sumanth Jo MD) Respiratory rate 16 /min 16 /min SIMIN ( Sumanth Jo MD) Body mass index (BMI) [Ratio] 40.8 kg/m2 40.8 k g/m2 SIMIN (Sumanth Jo MD) Body mass index (BMI) [Ratio] 38.05 kg/m2 38.05 kg/m2 eCW1 ([facility]) Heart rate 72 /min 72 /min eCW1 ([facility]) Body weight 235.8 [lb_av] 235.8 [lb_av] eCW1 ([facility]) Body height 66.0 [in_i] 66.0 [in_i] eCW1 ([facility]) Systolic blood pressure 120 mm[Hg] 120 mm[Hg] e CW1 ([facility]) Diastolic blood pressure 90 mm[Hg] 90 mm[Hg] eCW1 ([facility]) Patient Treatment Plan of Care Planned Activity Planned Date Details Description Data Source (s) Cyclobenzaprine hydrochloride 5 MG Oral Tablet 10/09/2020 12:00:00 AM EDT [facility] Docusate Sodium 100 MG Oral Capsule [DOK] 10/02/2020 12:00:00 AM ED T [facility] ferrous gluconate 324 MG Oral Tablet 10/02/2020 12:00:00 AM EDT [facility] 24 HR metoprolol succinate 25 MG Extended Release Oral Tablet 09/17/2020 12:00:00 AM EDT [facility] Metoprolol Succinate 25 MG 12/06/2019 12:00:00 AM EDT eCW1 ([facility]) Metoprolol Succinate 25 MG 12/06/2019 12:00:00 AM EDT eCW1 ([facility]) Metoprolol Succinate 25 MG 12/06/2019 12:00:00 AM EDT eCW1 ([facility]) Metoprolol Succinate 25 MG 12/06/2019 12:00:00 AM EDT eCW1 ([facility]) Metoprolol Succinate 25 MG 12/06/2019 12:00:00 AM EDT eCW1 ([facility]) Metoprolol Succinate 25 MG 12/06/2019 12:00:00 AM EDT eCW1 ([facility]) Metoprolol Succinate 25 MG 12/06/2019 12:00:00 AM EDT eCW1 ([facility] [facility]
[2021-01-13 22:37] VITALS: O2SAT 97
--- OUTSIDE RECORDS SUMMARY | 2021-01-13 22:49 | CCD ---
Author Author [facility] Organization [facility] Address Unknown Phone Unavailable Care Team Providers Care Steel Layer Name Role Phone Patricia DOMINGUEZ MD Unavailable [...] Unavailable Unavailable Deysi, Magendra MD Unavailable Unavailable Wakonda, Janna DO Unavailable Unavailable Wakonda, Janna DO Unavailable Unavailable Wakonda, Janna DO Unavailable Unavailable Wakonda, Janna DO Unavailable Unavailable Nikki, M Sina [...] Temo Sina DO Unavailable Unavailable Gina Rivera, TELEPHONE OPERATOR RECEPTIONIST-C Unavailable Unavailable Maring, Bereket PA Unavailable Unavailable [...] Sascha Hoffman MD Unavailable Unavailable NOSTROM, [facility] INSTRUCTOR Unavailable Unavailable NOSTROM, [facility] INSTRUCTOR Unavailable Unavailable NOSTROM, [facility] INSTRUCTOR Unavailable Unavailable NOSTROM, [facility] INSTRUCTOR Unavailable Unavailable NOSTROM, [facility] INSTRUCTOR Unavailable Unavailable NOSTROM, [facility] INSTRUCTOR Unavailable Unavailable NOSTROM, [facility] INSTRUCTOR Unavailable Unavailable NOSTROM, [facility] INSTRUCTOR Unavailable Unavailable NOSTROM, [facility] INSTRUCTOR Unavailable Unavailable NOSTROM, [facility] INSTRUCTOR Unavailable Unavailable NOSTROM, [facility] INSTRUCTOR Unavailable Unavailable NOSTROM, [facility] INSTRUCTOR Unavailable Unavailable NOSTROM, [facility] INSTRUCTOR Unavailable Unavailable Zeynep GARAY MD Unavailable Unavailable [...] Unavailable Unavailable CichettFrank gonzalez MD Unavailable Unavailable WITTY-CAMRYN, ARMIDA Unavailable Unavailable WITTY-CAMRYN, [...] Unavailable Unavailable WITTY-CAMRYN, ARMIDA Unavailable Unavailable WITTY-CAMRYN ARMIDA Unavailable Unavailable WITTY-CAMRYN ARMIDA Unavailable Unavailable WITTY-CAMRYN, [...] Unavailable Unavailable Marissa Nicholson MD Unavailable Unavailable Mraissa Nicholson MD Unavailable Unavailable Marissa Nicholson MD [...] Nicholson MD Unavailable Unavailable Sienkiewycz, L Gina HEALTH CAREERS INSTRUCTOR Unavailable Unavailable Sienkiewycz, L Gina HEALTH CAREERS INSTRUCTOR Unavailable Unavailable Sienkiewycz, L Gina HEALTH CAREERS INSTRUCTOR Unavailable Unavailable Sienkiewycz, L Gina HEALTH CAREERS INSTRUCTOR Unavailable Unavailable Sienkiewycz, L Gina HEALTH CAREERS INSTRUCTOR Unavailable Unavailable Sienkiewycz, L Gina HEALTH CAREERS INSTRUCTOR Unavailable Unavailable Sienkiewycz, L Gina HEALTH CAREERS INSTRUCTOR Unavailable Unavailable Denver, V BARBARA PA-C Unavailable Unavailable Celso, V BARBARA PA-C Unavailable Unavailable Denver, V BARBARA PA-C Unavailable Unavailable Denver, V BARBARA PA-C Unavailable Unavailable Denver, V BARBARA PA-C Unavailable Unavailable Denver, V BARBARA PA-C Unavailable Unavailable Denver, V BARBARA PA-C Unavailable Unavailable Denver, V BARBARA PA-C Unavailable Unavailable Denver, V BARBARA PA-C Unavailable Unavailable Celso, V BARBARA PA-C Unavailable Unavailable Celso, V BARBARA PA-C Unavailable Unavailable Denver, V BARBARA PA-C Unavailable Unavailable Denver, V BARBARA PA-C Unavailable Unavailable Denver, V BARBARA PA-C Unavailable Unavailable Patricia ANDRE [...] is protected by Article 27-F of the [facility] Public Health law. If you continue you may have access to information: Regarding HIV / AIDS; Provided by facilities licensed or operated by the [facility] Office of Mental Health; or Provided by the [facility] Office for People With Developmental Disabilities. If such information is present, then the following [facility] mandated warning applies: This information has been [...] law may result in a fine or alf sentence or both. A general authorization for the release of medical or other information is NOT sufficient authorization for further disc losure. Allergies and Adverse Reactions Type Description Substance Reaction Status Data Source(s ) Propensity to adverse reactions NSAIDS Nsaids Acti ve [facility] Encounters Encounter Providers Location Date Indications Data Source(s ) Outpatient Attender: Marissa SCHROEDER.ANN MARIE-SJP.ANN MARIE 11/06 02:50:21 PM EDT - 11/26/2020 08:17:13 AM EDT [facility] Outpatient Attender: BAY GARAY MD 11/14 06:47:30 PM EDT - 11/14/2020 07:39:57 PM EDT [facility] ([facility] ) Outpatient 11/01/2020 08:26:15 AM EDT [facility] ([facility]) Outpatient Attender: BARBARA GARAYANN MARIE-SJP.ANN MARIE 12/2020 12:00:00 AM EDT - 10/14/2020 01:40:11 PM EDT [facility] Outpatient Referrer: Marissa GARAYCT-SJP.SYR 09/05 12:00:00 AM EDT [facility] Outpatient Attender: Marissa Nicholson MDConsultant: Paul GARAYANN MARIE-SJP.ANN MARIE 09/25/2020 09:09:37 AM EDT - 09/25/2020 10:28:26 AM EDT [facility] Outpatient Attender: Bereket ABDUL 09/25/19 03:07:19 PM EDT - 09/24/2020 03:41:07 PM EDT [facility] ([facility] ) Outpatient Attender: BAY GARAY MD 08/22 04:16:27 PM EDT - 08/22/2020 04:55:18 PM EDT [facility] Outpatient Attender: Raad Arora MD SURG-NPLAB 07/31/2020 12:43:00 PM EDT [facility] Outpatient Attender: Raad Arora MD SURG-NPLAB 07/31/2020 12:43:00 PM EDT [facility] Outpatient [address] [place] [address] [phone] 07/31/2020 12:00:00 AM EDT eCW1 ([facility]) Outpatient [address] [place] [address] [phone] 07/31/2020 12:00:00 AM EDT eCW1 ([facility]) Outpatient [address] [place] [address] [phone] 07/22/2020 12:00:00 AM EDT eCW1 ([facility]) Outpatient Attender: Xuan ABDUL 021 02:29:45 PM EDT - 07/03/2020 03:06:52 PM EDT [facility] ([facility] ) Outpatient [address] [place] [address] 1 [phone] 07/02/2020 12:00:00 AM EDT eCW1 ([facility]) (TELEFU) TELEFU [address] [place] [address] 1 [phone] 07/01/2020 12:00:00 AM EDT eCW1 ([facility]) Outpatient Attender: ABDULAZIZ ANDRE DO ED-LAB 06/03/2020 01 :03:00 PM EDT PRE EMPLOYMENT [facility] PRE EMPLOYMENT Outpatient [address] [place] [address] 1 [phone] 05/21/2020 12:00:00 AM EDT eCW1 ([facility]) Outpatient [address] [place] [address] 1 [phone] 04/22/2020 12:00:00 AM EST eCW1 ([facility]) (TELEFU) TELEFU [address] [place] [address] 1 [phone] 03/21/2020 12:00:00 AM EST eCW1 ([facility]) Outpatient [address] [place] [address] 1 [phone] 03/21/2020 12:00:00 AM EST eCW1 ([facility]) Outpatient Attender: Sina Jordan DO CPSCAORT-COVVACCPH 05:38:00 PM EST 2ND COVID VACCINE PFIZER [facility] 2ND COVID VACCINE PFIZER Outpatient [address] [place] [address] 1 [phone] 03/10/2020 12:00:00 AM EST eCW1 ([facility]) Outpatient Attender: Sumanth Jo MD [facility] 08:45:00 AM EST MEDENT (Sumanth Jo MD) Emergency Attender: [facility] INSTRUCTOR Attender: Molly Hoffman MDAttender: Janna Sheriff DO CPSCAORT-ED 03/03/2020 04:32:00 PM EST - 03/03/2020 07:25:00 PM EST ALLERGIC REACTION [facility] ALLERGIC REACTION Patient discharged. Outpatient Attender: Sina Jordan DO CPSCAORT-COVVACCPH 05:21:00 PM EST 1ST COVID VACCINE PFIZER [facility] 1ST COVID VACCINE PFIZER Outpatient [address], [place] 1 [phone] 02/07/2020 12:00:00 AM EST eCW1 ([facility]) Outpatient Attender: HARRISON Galvan nder: Gina Rivera NP CPSCAORT-LABMASS 01/28/2020 03:07:00 PM EST EXPOSURE [facility] EXPOSURE Outpatient Attender: Gina Rivera HEALTH CAREERS INSTRUCTOR SURG-NPLAB 01/28/2020 01:28:00 PM EST [facility] P Attender: Gina Rivera HEALTH CAREERS INSTRUCTOR SURG-NPLAB 01/28/2020 12:0 0:00 AM EST [facility] Outpatient [address], [place] 1 [phone] 01/28/2020 12:00:00 AM EST eCW1 ([facility]) Outpatient [address] [place] [address] 1 [phone] 01/28/2020 12:00:00 AM EST eCW1 ([facility]) Outpatient [address] [place] [address] 1 [phone] 01/28/2020 12:00:00 AM EST eCW1 ([facility]) [facility] [address] [phone] 01/28/2020 12:00:00 AM EST eCW1 ([facility]) Outpatient [address] [place] [address] 1 [phone] 01/17/2020 12:00:00 AM EST eCW1 ([facility]) Outpatient [address] [place] [address] 1 [phone] 12/06/2019 12:00:00 AM EDT eCW1 ([facility]) Outpatient [address] [place] [address] 1 [phone] 11/28/2019 12:00:00 AM EDT eCW1 ([facility]) Emergency Attender: Janna Sheriff DO CPSCAORT-ED 020 11:39:00 AM EDT - 11/26/2019 04:28:00 PM EDT PALPITATIONS [facility] PALPITATIONS Patient discharged. Outpatient [address], [place] 1 [phone] 11/26/2019 12:00:00 AM EDT eCW1 ([facility]) Outpatient Attender: HARRISON Galvan nder: Gina Rivera NP CPSCAORT-LABMASS 08/15/2019 01:13:00 PM EDT - 08/15/2019 01:14:00 PM ED T COVID- 19 SCREENING [facility] COVID-19 SCREENING Patient discharged. Outpatient Attender: ARMIDA MENDOZAAttender: Ailyn Rivera NP LKKC-WALK.LSS 08/15/2019 11:27:00 AM EDT [facility] Outpatient Attender: DONNA DOMINGUEZ MD CPSCAORT-LABPNP 07/06 06:16:00 PM EDT COVID 19 SCREENING [facility] COVID 19 SCREENING Outpatient Attender: DONNA DOMINGUEZ MD CPSCAORT-LABPNP 07/05 10:02:00 PM EDT COVID-19 SCREENING [facility] COVID-19 SCREENING Immunizations Vaccine Date Status Description Data Source(s) Pfizer Covid-19 03/19/2020 08:13:00 AM EST completed eCW1 ([facility]) Pfizer Covid-19 03/19/2020 08:13:00 AM EST completed eCW1 ([facility]) Pfizer Covid-19 03/19/2020 08:13:00 AM EST completed eCW1 ([facility]) Pfizer Covid-19 03/19/2020 08:13:00 AM EST completed eCW1 ([facility]) Pfizer Covid-19 03/19/2020 08:13:00 AM EST completed eCW1 ([facility]) Pfizer Covid-19 03/19/2020 08:13:00 AM EST completed eCW1 ([facility]) Pfizer Covid-19 03/19/2020 08:13:00 AM EST completed eCW1 ([facility]) COVID-19 VACCINE Pfizer 03/19/2020 12:00:00 AM EST completed [place] Vaccine Series Complete: YESThis Data wa s Submitted to [facility] Via [employer]. Pfizer Covid-19 02/27/2020 08:13:00 AM EST completed eCW1 ([facility]) Pfizer Covid-19 02/27/2020 08:13:00 AM EST completed eCW1 ([facility]) Pfizer Covid-19 02/27/2020 08:13:00 AM EST completed eCW1 ([facility]) Pfizer Covid-19 02/27/2020 08:13:00 AM EST completed eCW1 ([facility]) Pfizer Covid-19 02/27/2020 08:13:00 AM EST completed eCW1 ([facility]) Pfizer Covid-19 02/27/2020 08:13:00 AM EST completed eCW1 ([facility]) Pfizer Covid-19 02/27/2020 08:13:00 AM EST completed eCW1 ([facility]) COVID-19 VACCINE Pfizer 02/27/2020 12:00:00 AM EST completed [place] Vaccine Series Complete: NOThis Data was Submitted to [facility] Via [employer]. New in 2011. IIV4 11/28/2019 07:00:00 AM EDT completed eCW1 ([facility]) New in 2011. IIV4 11/28/2019 07:00:00 AM EDT completed eCW1 ([facility]) New in 2011. IIV4 11/28/2019 07:00:00 AM EDT completed eCW1 ([facility]) New in 2011. IIV4 11/28/2019 07:00:00 AM EDT completed eCW1 ([facility]) New in 2011. IIV4 11/28/2019 07:00:00 AM EDT completed eCW1 ([facility]) New in 2011. IIV4 11/28/2019 07:00:00 AM EDT completed eCW1 ([facility]) New in 2011. IIV4 11/28/2019 07:00:00 AM EDT completed eCW1 ([facility]) New in 2011. IIV4 11/28/2019 07:00:00 AM EDT completed eCW1 ([facility]) New in 2011. II4 11/28/2019 07:00:00 AM EDT completed eCW1 ([facility]) New in 2011. II4 11/28/2019 07:00:00 AM EDT completed eCW1 ([facility]) New in 2011. II4 11/28/2019 07:00:00 AM EDT completed eCW1 ([facility]) New in 2011. II4 11/28/2019 07:00:00 AM EDT completed eCW1 ([facility]) New in 2011. II11/28/2019 07:00:00 AM EDT completed eCW1 ([facility]) New in 2011. II11/28/2019 07:00:00 AM EDT completed eCW1 ([facility]) New in 2011. II11/28/2019 07:00:00 AM EDT completed eCW1 ([facility]) New in 2011. II11/28/2019 07:00:00 AM EDT completed eCW1 ([facility]) New in 2011. II11/28/2019 07:00:00 AM EDT completed eCW1 ([facility]) Medications Medication Brand Name Start Date Product Form Dose Route Admi nistrative Instructions Pharmacy Instructions Status Indications Reaction Description Data Source(s) Cyclobenzaprine hydrochloride 5 MG Oral Tablet cyclobenzaprine (FLEXERIL) 5 MG tablet cyclobenzaprine (FLEXERIL) 5 MG tablet 10/09/2020 12:00:00 AM EDT active as needed [facility] ferrous gluconate 324 MG Oral Tablet ferrous gluconate (FERGON) 324 MG tablet ferrous gluconate (FERGON) 324 MG tablet 10/02/2020 12:00:00 AM EDT active TAKE 1 TABLET BY MOUTH TWICE MARIA C LY WITH JUICE OR WATER BETWEEN MEALS [facility] Docusate Sodium 100 MG Oral Capsule [DOK] DOK 100 MG capsule DOK 100 MG capsule 10/02/2020 12:00:00 AM EDT active TAKE 1 CAPSULE BY MOUTH TWICE DAILY NEEDED FOR CONSTIPATION [facility] 24 HR metoprolol succinate 25 MG Extende d Release Oral Tablet metoprolol succinate (TOPROL-XL) 25 MG 24 hr tablet metoprolol succinate (TOPROL-XL) 25 MG 24 hr tablet 09/17/2020 12:00:00 AM EDT 25 mg Oral activ e Take 25 mg by mouth daily [facility] Metoprolol Succinate 25 MG UNK 12/06/2019 12:00:00 AM EDT 1. 0 {capsule} active Metoprolol Succinate 25 MG eCW1 ([facility]) Metoprolol Succinate 25 MG UNK 12/06/2019 12:00:00 AM EDT 1. 0 {capsule} active Metoprolol Succinate 25 MG eCW1 ([facility]) Metoprolol Succinate 25 MG UNK 12/06/2019 12:00:00 AM EDT 1. 0 {capsule} active Metoprolol Succinate 25 MG eCW1 ([facility]) Metoprolol Succinate 25 MG UNK 12/06/2019 12:00:00 AM EDT 1. 0 {capsule} active Metoprolol Succinate 25 MG eCW1 ([facility]) Metoprolol Succinate 25 MG UNK 12/06/2019 12:00:00 AM EDT 1. 0 {capsule} active Metoprolol Succinate 25 MG eCW1 ([facility]) Metoprolol Succinate 25 MG UNK 12/06/2019 12:00:00 AM EDT 1. 0 {capsule} active Metoprolol Succinate 25 MG eCW1 ([facility]) Metoprolol Succinate 25 MG UNK 12/06/2019 12:00:00 AM EDT 1. 0 {capsule} active Metoprolol Succinate 25 MG eCW1 ([facility]) Metoprolol Succinate 25 MG UNK 12/06/2019 12:00:00 AM EDT 1. 0 {capsule} active Metoprolol Succinate 25 MG eCW1 ([facility]) Insurance Providers Payer name Policy type / Coverage type Policy ID Covered libertarian ID Covered libertarian's relationship to capellan Policy Cap[employer] Plan Information [id number] CCS MEDICAID [id number] SP [id number] F CCS MEDICAID [id number] SP [id number] F EXCELLUS BCBS MEDICAID [id number] EXCELLUS BCBS MEDICAID [id number] Yanira [id number] RPR- Needs Payer Match [id number] Self [id number] [employer] Blue Cross and Blue Shield - [place] Blue Cross/B lue Shield [id number] Self [id number] RPR- Needs Payer Match [id number] Self [id number] SELF PAY UNAVAILABLE SP UNAVAILA BLE [facility] [id number] FA [id number] BCBS MIMI HMO [id number] SP [id number] [facility] [id number] FA [id number] BCBS MIMI HMO [id number] SP [id number] BCBS MIMI HMO [id number] SP [id number] BCBS [place] PPO 302/[id number] SP [id number] [place]BS [place] PPO 302/[id number] SP [id number] BCBS [place] PPO 302/[id number] SP [id number] BCBS ESSENTIAL PLAN [id number] S [id number] EXCELLUS BLUE CROSS [id number] SP [id number] [facility] STATE COVID TESTING SP BCBS ESSENTIAL PLAN 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 Diagnosis 11/26/2019 11:39:00 AM EDT [facility] R00.2 Palpitations PALPITATIONS Diagnosis 11/26/2019 11:39:00 A M EDT [facility] R55 Vasovagal syncope Vasovagal syncope [id number] 11/25/2020 12:00:00 AM EDT [facility] G47.33 Obstructive sleep apnea Obstructive sleep apnea Proble m 09/30/2020 12:00:00 AM EDT eCW1 ([facility]) R00.2 Palpitations Palpitations [id number] 09/25/2020 12:00:00 A M EDT [facility] G47.33 Obstructive sleep apnea syndrome Moderate obstru ctive sleep apnea Problem 01/25/2020 12:00:00 AM EST eCW1 ([facility]) I10 Essential hypertension Essential (primary) hypertensio n Problem 12/06/2019 12:00:00 AM EDT eCW1 ([facility]) Z68.38 Body mass index 35.00 to 39.99 Body mass index ( BMI) 38.0-38.9, adult Problem 11/29/2019 12:00:00 AM EDT eCW1 ([facility]) Surgeries/Procedures Procedure Description Date Indications Data Source(s) POCT AMB EKG <td>POCT AMB EKG</td><td>Rou carlos</td><td>11/25/2020 3:21 PM EDT</td><td> Vasovagal syncope</td><td> </td> 11/25/2020 03:21:00 PM EDT Vasovagal syncope [facility] Vasovagal syncope BLOOD COUNT COMPLETE AUTO&AUTO DIFRNTL WBC COUNT <td>C BC AND DIFFERENTIAL</td><td>Routine</td><td>11/21/2020</td><td></td><td> </td> 11/21/2020 12:00:00 AM EDT [facility] THYROID STIMULATING HORMONE TSH <td>TSH</td><td>Routine</td><td>11/21/2020</td><td></td><td> </td> 11/21/2020 12:00:00 AM EDT [facility] BASIC METABOLIC PANEL CALCIUM TOTAL <td>BASIC METABOLI C PANEL</td><td>Routine</td><td>11/21/2020</td><td></td><td> </td> 11/21/2020 12:00:00 AM EDT [facility] THYROID STIMULATING HORMONE TSH <td>TSH</td><td>Routine</td><td>11/04/2020</td><td></td><td> </td> 11/04/2020 12:00:00 AM EDT [facility] BASIC METABOLIC PANEL CALCIUM TOTAL <td>BASIC METABOLI C PANEL</td><td>Routine</td><td>11/04/2020</td><td></td><td> </td> 11/04/2020 12:00:00 AM EDT [facility] POCT AMB EKG <td>POCT AMB EKG</td><td>Rou carlos</td><td>10/14/2020 1:30 PM EDT</td><td> Palpitations</td><td> </td> 10/14/2020 01:30:00 PM EDT Palpitations [facility] Palpitations BLOOD COUNT COMPLETE AUTO&AUTO DIFRNTL WBC COUNT <td>C BC AND DIFFERENTIAL</td><td>Routine</td><td>09/05/2020</td><td></td><td> </td> 09/05/2020 12:00:00 AM EDT [facility] THYROID STIMULATING HORMONE TSH <td>TSH</td><td>Routine</td><td>09/05/2020</td><td></td><td> </td> 09/05/2020 12:00:00 AM EDT [facility] HEPATIC FUNCTION PANEL <td>HEPATIC FUNCTION PANEL</td><td>Routine</td><td>09/05/2020</td><td></td><td> </td> 09/05/2020 12:00:00 AM EDT [facility] BASIC METABOLIC PANEL CALCIUM TOTAL <td>BASIC METABOLI C PANEL</td><td>Routine</td><td>09/05/2020</td><td></td><td> </td> 09/05/2020 12:00:00 AM EDT [facility] [address] X-RAY EXAM CHEST 1 VIEW 03/03/2020 12:00:00 AM [facility] EMERGENCY DEPARTMENT VISIT HIGH/URGENT SEVERITY EMERGENCY DE PT VISIT 03/03/2020 12:00:00 AM [facility] Sleep Staging W/4 0R More Addit 12/12/2019 12:00:00 AM EDT SIMIN ([place]) [address] X-RAY EXAM CHEST 2 VIEWS 11/26/2019 12:00:00 AM [facility] ECHO TTHRC R-T 2D W/WOM-MODE COMPL SPEC&COLR DOP TTE W/DOPPL ER COMPLETE 11/26/2019 12:00:00 AM [facility] EXTERNAL ECG SCANNING ANALYSIS REPORT ECG MONIT/REPRT UP TO 48 HRS 11/26/2019 12:00:00 AM [facility] XTRNL ECG < 48 HR RECORDING ECG MONIT/REPRT UP TO 48 HRS 12:00:00 AM [facility] ECG ROUTINE ECG W/LEAST 12 LDS TRCG ONLY W/O I&R ELECTROCARD IOGRAM TRACING 11/26/2019 12:00:00 AM [facility] ANTIBODY EHRLICHIA EHRLICHIA ANTIBODY 11/26/2019 12:00:00 AM [facility] ANTIBODY PROTOZOA VALERIANO PROTOZOA ANTIBODY NOS 11/26/2019 12:00:00 AM [facility] THYROXINE FREE ASSAY OF FREE THYROXINE 11/26/2019 12:00:00 AM [facility] THYROID STIMULATING HORMONE TSH ASSAY THYROID STIM HORMONE 0 11/26/2019 12:00:00 AM [facility] ANTIBODY BORRELIA BURGDORFERI LYME DISEASE LYME DISEASE ANTI BODY 11/26/2019 12:00:00 AM [facility] THROMBOPLASTIN TIME PARTIAL PLASMA/WHOLE BLOOD THROMBOPLASTI N TIME PARTIAL 11/26/2019 12:00:00 AM [facility] PROTHROMBIN TIME PROTHROMBIN TIME 11/26/2019 12:00:00 AM [facility] BLOOD COUNT COMPLETE AUTO&AUTO DIFRNTL WBC COUNT COMPLETE CB C W/AUTO DIFF WBC 11/26/2019 12:00:00 AM [facility] [address] DRUG SCREEN QUANTALCOHOLS 11/26/2019 12:00:00 AM [facility] GONADOTROPIN CHORIONIC QUALITATIVE CHORIONIC GONADOTROPIN SAY 11/26/2019 12:00:00 AM [facility] [address] ANALGESICS NON-OPIOID 1 OR 2 11/26/2019 12:00:00 AM ED [facility] TROPONIN QUANTITATIVE ASSAY OF TROPONIN QUANT 11/26/2019 12:00:00 A M EDT [facility] LIPASE ASSAY OF LIPASE 11/26/2019 12:00:00 AM EDT [facility] COMPREHENSIVE METABOLIC PANEL COMPREHEN METABOLIC PANEL 11/06 12:00:00 AM EDT [facility] FIBRIN DGRADJ PRODUCTS D-DIMER QUANTITATIVE FIBRIN DEGRADATI ON QUANT 11/26/2019 12:00:00 AM EDT [facility] Non-covered item or service NON-COVERED ITEM OR SERVICE 11/06 12:00:00 AM EDT [facility] Injection, lorazepam, 2 mg 11/26/2019 12:00:00 AM EDT [facility] COLLECTION VENOUS BLOOD VENIPUNCTURE ROUTINE VENIPUNCTURE 12:00:00 AM EDT [facility] THER PROPH/DX NJX IV PUSH SINGLE/1ST SBST/DRUG THER/PROPH/DI AG INJ IV PUSH 11/26/2019 12:00:00 AM EDT [facility] EMERGENCY DEPT VISIT HIGH SEVERITY&THREAT FUNCJ EMERGENCY DE PT VISIT 11/26/2019 12:00:00 AM EDT [facility] Results ID Date Data Source [id number] 09/30/2020 01:02:36 PM EDT [facility] Name Value Range Interpretation Code Description Data Allyson rce(s) Supporting Document(s) &PDF [facility] YGQSMk0wHyLGZfCh01/KTQsrJIRil2DxCLvpUMj5FWukRTJlC0TncNxwRKWMUBRUYGoEOn9BDlNNDFFm vci [file] ICAgICAgICAgICAgICAgICAgICAgICAgICAgICAgIC AgICAgICAgICAgICANCiAgICAgICAgICAgICAgICAgICAgICAgICAgICAgICAgICAgICAgICAgICAgIC AgICAgICAgICAgICAgICAgICAgICAgICAgICAgICAgICAgICAgICAgICAgICAgICAgICAgICANCiAgIC AgICAgICAgICAgICAgICAgICAgICAgICAgICAgICAg ICAgICAgICAgICAgICAgICAgICAgICAgICAgICAgICAgICAgICAgICAgICAgICAgICAgICAgICAgICAg ICAgICANCiAgICAgICAgICAgICAgICAgICAgICAgICAgICAgICAgICAgICAgICAgICAgICAgICAgICAg ICAgICAgICAgICAgICAgICAgICAgICAgICAgICAgIC AgICAgICAgICAgICAgICANCiAgICAgICAgICAgICAgICAgICAgICAgICAgICAgICAgICAgICAgICAgIC AgICAgICAgICAgICAgICAgICAgICAgICAgICAgICAgICAgICAgICAgICAgICAgICAgICAgICAgICANCi AgICAgICAgICAgICAgICAgICAgICAgICAgICAgICAg ICAgICAgICAgICAgICAgICAgICAgICAgICAgICAgICAgICAgICAgICAgICAgICAgICAgICAgICAgICAg ICAgICAgICANCiAgICAgICAgICAgICAgICAgICAgICAgICAgICAgICAgICAgICAgICAgICAgICAgICAg ICAgICAgICAgICAgICAgICAgICAgICAgICAgICAgIC AgICAgICAgICAgICAgICAgICANCiAgICAgICAgICAgICAgICAgICAgICAgICAgICAgICAgICAgICAgIC AgICAgICAgICAgICAgICAgICAgICAgICAgICAgICAgICAgICAgICAgICAgICAgICAgICAgICAgICAgIC ANCiAgICAgICAgICAgICAgICAgICAgICAgICAgICAg ICAgICAgICAgICAgICAgICAgICAgICAgICAgICAgICAgICAgICAgICAgICAgICAgICAgICAgICAgICAg ICAgICAgICAgICANCiAgICAgICAgICAgICAgICAgICAgICAgICAgICAgICAgICAgICAgICAgICAgICAg ICAgICAgICAgICAgICAgICAgICAgICAgICAgICAgIC AgICAgICAgICAgICAgICAgICAgICANCjw/sZOrW8uynYYuacM7B5qhMy2HBo7CMF8bj4CdQTJlELmfom KoBsaCLaGdSMWgEreVQhd7IGgsTJ2LeHVgE2DlZ7AxASzrWZ9THWXzLLRcmTEsLAGyUZIcZtV1ULNsTT tkSE6ObJJjPSejSNYcGTKsQlOuSANoYWRiSRCqOR0U HNYxQ760brJmHu6PTa7ECnGaQR0yiv1BDGYsALHvAxkOHnk2GPbiLU9NcSDvG8GuwGPxn6oBDfIiZ8UD FYFaGGVsBj4BGKLtZuDdFYWsTHsdCV1tDGCuTVNCaKmwxiA2TA1VAD3quqFeXT6EWaXrCt6gIg5VSdMx E0OqT3SrMYPaLYPEYYfhRV1SZNQjZAD7LPS3WACyLZ LNZyFhK01pGU3YC7Tiq54eOlC3ONLmGyKjACveLL53iGsdbaLbvBAlgWgiFU2TRs1+DQplbmRvYmoNCn ufNPOAWaDsBCNUNaKmWDLgPGNrTIXnCsE1GtXnYn5ZEBLdVRGrTRZuMzWqQWIoLJQqJBauKHTrFAKcMB N0XEQsSMXzBG7TRuDeZHFtBjV2CMfhULUgIZJuhl5Y TJIbNTCgUXU1FfUiANUtEPLxLFmyGLIbOJFuLGW2NELiECOxGD5SXrOvEYSmKWP7LNZtWQIpMUGlko8Z UTAkVWOwYlY3AYEwQSWcHQGnHCxdLUPjWST2AeO1GZCgYVYoNP6EIqCoNFOpGEdpEqAmFPQqGJMpmv7O YRSlXEQfPeLmMHVxJZOnYIPgLMkfZYYjECF2Pjm1PY RbCRWvBW7MXoVhWFMrWUg9THZmAGDyTTZean0BVLSlTCTqKNR7ZICtQVZbKBIlHWpmYMKdKRA5OcHbIX QgZXOgPC2JFaXcGSRcFTh8EsZrZODeIQTnda4ZZQVcLSKtCAJnRnSbMXSxHQCrUMziHMPxCPC0HEj1WL IwRIStMB9OYdBgDHIfONTbQMMdNAJnSVXppm6CHYKu GJQgFJRkXIXwVGTyNSHkLIdiGPTcOHE8HhS4CDZyJHRwJU9IYyNgRKVoDQN6AUWqLYGdBIBjls9TITQe TFJhUdwzAiAtCRYhJXVdYNjgRHWdWBC8IJFyRHTbEQKwOW3SXhFwFMKtNLdtOZJkYESuVLAmno7UBXMt ISIxZBEhDlTdHTRzBEYkKKbrWXRqXVL5MhD6CSMpUG KyPH3UHdGfAMKaEZd0WBqtNFDbHRTftq7BCRDhPJLmHRQ6ZRKzXYUdSYAaSMyaDDMxVJS7JQY9WYWdNV UiEW0BXwDlSIWiMDc4AETeAUXsKDWcgk3GSAHgJUGpUNBoCGVyQKDfTYEnGObpZMUmDXGuHoFxCUFzVL CqWO0RXbAnQZSdQzN6HJUvMMRqIGLxfj8ELCNbKZFo UEm0LKGvMGZmXFTvHEzzBSPhLJDeQMb6DZDbHOMbEV7FQpIaYKCfRrFqQSIcUCMtZEJilk9NOZYvSEJw HMWvMPAzVTIsCFZkVTnkVXKrYGEzAKR9XBUsQGJoOF7JOeQaAMJsUkNgSZDwVFOoTRFmto9ANGUqLIUb VaW2BZUjONQdFJCoBIedZIYmDROnFJD8OBBcNBKkXM 1CZiUaTPPqXfZ2NwboQWYwVUEfom8GeBMheVjfcv0KPCqJUd2TfTotIAZbUQxpFf0onZF6DdQxCTOAIj 7JfkRbUBEfUYNFMUqzIAVgTYW4SlFhSwXkZJS4HGT8LQOxAPS0DUZ4QoEnQXWzSQI9SsW9GmkqXIWnIM AqQFi6DRSkXzC2DEmgUfYqELC6CXLtFPj+IF0gDQ o+Ti8Cc5OoddT9wyXxBCqgNLy5HM7AMEXZT6JEGj== ID Date Data Source [id number] 09/24/2020 03:30:00 PM EDT [facility] Name Value Range Interpretation Code Description Data Allyson rce(s) Supporting Document(s) SARS-CoV-2 RNA Resp Ql MARINO+probe NOT DETECTED [facility] This lab was ordered by SOLANGE richardson and reported by SOLANGE Queen. ID Date Data Source [id number] 08/04/2020 08:51:00 AM EDT [facility] Name Value Range Interpretation Code Description Data Allyson rce(s) Supporting Document(s) CHLAMYDIA NUCLEIC ACID AMP Negative Negative Pat l (applies to non-numeric results) [facility] GONOCOCCUS NUCLEIC ACID AMP Negative Negative Norm al (applies to non-numeric results) [facility] Performed at: RN - [facility] [address] [id number] Director: Le Kang MD, Phone: [phone] ID Date Data Source ekg 07/31/2020 12:00:00 AM EDT eCW1 ([facility]) Name Value Range Interpretation Code Description Data Allyson rce(s) Supporting Document(s) ekg eCW1 ([facility]) ID Date Data Source Urinalysis (auto) 07/31/2020 12:00:00 AM EDT eCW1 ([facility]) Name Value Range Interpretation Code Description Data Allyson rce(s) Supporting Document(s) Leukocyte esterase [Presence] in Urine by Test strip +- Leukocytes eCW1 ([facility]) Nitrite [Presence] in Urine by Test strip - Nitrites eCW1 ([facility]) pH of Urine by Test strip 6.0 pH eCW1 ([facility]) Protein [Presence] in Urine by Test strip +- Protein eCW1 ([facility]) Urobilinogen [Mass/volume] in Urine by Test strip - Urobilinogen eCW1 ([facility]) Hemoglobin [Presence] in Urine by Test strip - Blood eCW1 ([facility]) Bilirubin.total [Presence] in Urine by Test strip - Bilirubin eCW1 ([facility]) Glucose [Presence] in Urine by Test strip - Glucose eCW1 ([facility]) Ketones [Presence] in Urine by Test strip +- Ketones eCW1 ([facility]) Specific gravity of Urine by Test strip 1.030 Specific [place] eCW1 ([facility]) Color eCW1 ([facility]) ID Date Data Source Glucose, cholestech machine 07/31/2020 12:00:00 AM EDT eCW1 ([facility]) Name Value Range Interpretation Code Description Data Allyson rce(s) Supporting Document(s) 89 glucose eCW1 ([facility]) ID Date Data Source Lipid Panel And Chol/HDL Ratio 07/31/2020 12:00:00 AM EDT eC W1 ([facility]) Name Value Range Interpretation Code Description Data Allyson rce(s) Supporting Document(s) Cholesterol [Mass/volume] in Serum or Plasma 143 Cholesterol, Total eCW1 ([facility]) Cholesterol in HDL [Mass/volume] in Serum or Plasma 34 HDL Cholesterol eCW1 ([facility]) Triglyceride [Mass/volume] in Serum or Plasma 166 Triglycerides eCW1 ([facility]) Cholesterol in LDL [Mass/volume] in Serum or Plasma by calculation 75 LDL Cholesterol Calc eCW1 ([facility]) Cholesterol in VLDL [Mass/volume] in Serum or Plasma by calculation 108 VLDL Cholesterol Jorge Luis eCW1 ([facility]) Cholesterol.total/Cholesterol in HDL [Mass Ratio] in Serum or Plasm a 4.1 T. Chol/HDL Ratio eCW1 ([facility]) ID Date Data Source Hemoglobin A1c 07/31/2020 12:00:00 AM EDT eCW1 ([facility]) Name Value Range Interpretation Code Description Data Allyson rce(s) Supporting Document(s) Hemoglobin A1c/Hemoglobin.total in Blood 5.1 Hemoglobin A1c eCW1 ([facility]) ID Date Data Source [id number] 07/05/2020 08:41:00 PM EDT [facility] Name Value Range Interpretation Code Description Data Allyson rce(s) Supporting Document(s) COVID-19 RT-PCR [employer] SWAB Not Detected Not Detected [facility] A not detected (negative) test result fo [...] developed and its performance characteristics determined by [employer] and verified at [employer]. It has not been cleared or approved by the U.S. Food and Drug Administration for diagnostic use. This test has been authorized by FDA under an EUA for use by authorized laboratories. Results should be used in conjunction with clinical findings, and should not form the sole basis for a diagnosis or treatment decision. Methods: SARS-CoV-2 Multiplex RT-PCR Assay ID Date Data Source [id number] 07/03/2020 02:45:00 PM EDT [facility] Name Value Range Interpretation Code Description Data Allyson rce(s) Supporting Document(s) SARS-CoV-2 (COVID-19) N gene [Presence] in Respiratory specimen by MARINO with probe detection NEGATIVE [facility] This lab was ordered by Bret Nina and reported by [employer]. ID Date Data Source [id number] 07/03/2020 12:00:00 AM EDT [facility] Name Value Range Interpretation Code Description Data Allyson rce(s) Supporting Document(s) Carestart Rapid COVID Antigen Test Negative [facility] This lab was reported by Bret morrell. ID Date Data Source Strep test 04/22/2020 12:00:00 AM EST eCW1 ([facility]) Name Value Range Interpretation Code Description Data Allyson rce(s) Supporting Document(s) negative results eCW1 ([facility]) ID Date Data Source COVID-19 Ag 04/22/2020 12:00:00 AM EST eCW1 ([facility]) Name Value Range Interpretation Code Description Data Allyson rce(s) Supporting Document(s) - COVID-19 Ag eCW1 ([facility]) ID Date Data Source Rapid Influenza B 04/22/2020 12:00:00 AM EST eCW1 ([facility]) Name Value Range Interpretation Code Description Data Allyson rce(s) Supporting Document(s) negative Test Result eCW1 ([facility]) ID Date Data Source Rapid Influenza A 04/22/2020 12:00:00 AM EST eCW1 ([facility]) Name Value Range Interpretation Code Description Data Allyson rce(s) Supporting Document(s) negative Test Result eCW1 ([facility]) ID Date Data Source [id number] 03/03/2020 04:32:00 PM [facility] Name: NAILA ERIC Med Rec #: [id number] : 1995 Age/Sex: 24F Date of Service: 03/03/20 PHYSICIAN CHART Physician Documentation [facility] Name: Naila Eric Age: 24 yrs Sex: Female : 1995 Arrival Date: 03/03/2020 Time: 16:32 Bed 13 Private MD: Raad Arora ED Physician Molly Hoffman HPI: 03/03 19:08 This 24 yrs old Female presents to ER via Walk- In wn with complaints of Allergic Reaction. 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 She is currently asymptomatic.. LEPIDOPTERIST: 16:37 LMP 02/11/2020 radha Historical: - Allergies: [...] to communication noted, The patient speaks fluent Kazakh. ROS: 19:11 Constitutional: See HPI. Cardiovascular: See [...] 72. No ectopic beats. Patient is a geser-ct-ajqy Covid test that was negative. I have [...] documented. Signatures: Dispatcher [employer] EDJuve Wall, JUS FORENSIC ACCOUNTANT wn Molly Hoffman MD MD jtJanna Pollard DO DO rc3 Babs Barnes RN RN alc Lecuyer, Kelly, RN RN radha Corrections: (The following items were deleted from the chart) 03/03 19:00 16:47 Iv Saline Lock+BEN ordered. rc3 alc Name Value Range Interpretation Code Description Data Allyson rce(s) Supporting Document(s) ID Date Data Source [id number] 03/03/2020 04:32:00 PM [facility] Name: NAILA ERIC Med Rec #: [id number] : 1995 Age/Sex: 24F Date of Service: 03/03/20 NURSE CHART Nurse's Notes [facility] Name: Naila Eric Age: 24 yrs Sex: Female : 1995 Arrival Date: 03/03/2020 Time: 16:32 Bed 13 Private MD: Raad Arora Diagnosis: Palpitations Presentation: 03/03 16:36 Acuity: Urgent - 3 [facility] 16:39 Transition of care: patient was not received from another [facility] setting of care. Onset: The symptoms/episode began/occurred [...] COVID-19? No. 16:39 Method Of Arrival: Walk-In [facility] Triage Assessment: 16:42 SEPSIS SCREEN: A Confirmed [...] is cooperative. The patient denies having pain. LEPIDOPTERIST: 16:37 LMP 02/11/2020 [facility] Historical: - Allergies: N Saids; - Home [...] to communication noted, The patient speaks fluent Kazakh. Screenin:43 AUDIT 1. How often do you [...] Jerome RN RN ed Juve Castillo RNP [facility] Molly Hoffman MD MD jtv Crump, Alayna, RN RN alc Lecuyer, Kelly, RN RN kal Martinez, Erin erm Name Value Range Interpretation Code Description Data Allyson rce(s) Supporting Document(s) ID Date Data Source [id number] 03/03/2020 04:32:00 PM [facility] Name: NAILA ERIC [facility] Rec #: [id number] : 1995 Age/Sex: 24F Date of Service: 03/03/20 DISPOSITION SUMMARY Discharge Summary [facility] Name:Naila Eric Emergency Department Age:24 yrs Sex:Female [...] rce(s) Supporting Document(s) ID Date Data Source [id number] 03/03/2020 06:09:00 PM [facility] Name Value Range Interpretation Code Description Data Allyson rce(s) Supporting Document(s) PT 9.4-12.5 Normal (applies to non-numeric results) [facility] INR Normal (applies to non-numeric results) [facility] The use of the INR is restricted to garret ents on stable oral anticoagulant. Therapeutic Range: 2.0-3.0 High Risk Values: 2.5-3.5 ID Date Data Source [id number] 03/03/2020 06:09:00 PM [facility] Name Value Range Interpretation Code Description Data Allyson rce(s) Supporting Document(s) PTT 25.1-36.5 Normal (applies to non-numeric resul ts) [facility] ID Date Data Source [id number] 03/03/2020 06:08:00 PM [facility] Name Value Range Interpretation Code Description Data Allyson rce(s) Supporting Document(s) Troponin I 0.000-0.045 Normal (applies to non-numeric resu lts) [facility] ID Date Data Source [id number] 03/03/2020 06:05:00 PM [facility] Name Value Range Interpretation Code Description Data Allyson rce(s) Supporting Document(s) Beta HCG Screen,Qualitative Negative Normal (appli es to non-numeric results) [facility] ID Date Data Source [id number] 03/03/2020 06:05:00 PM [facility] Name Value Range Interpretation Code Description Data Allyson rce(s) Supporting Document(s) Sodium 140 mmol/L 137-145 Normal (applies to non-numeric resul ts) [facility] Potassium 3.5-5.1 Normal (applies to non-numeric resul ts) [facility] Chloride 108 mmol/L 98-112 Normal (applies to non-numeric resul ts) [facility] Carbon Dioxide CO2 22.0-33.0 Normal (applies to non-numer ic results) [facility] Anion Gap 4.0-11.0 Normal (applies to non-numeric resul ts) [facility] BUN 7 mg/dL 7-17 Normal (applies to non-numeric resul ts) [facility] Creatinine 0.70-1.20 Normal (applies to non-numeric resul ts) [facility] GFR >60 Normal (applies to non-numeric results) [facility] Result based on MDRD formula. Glucose Level 119 mg/dL 74-99 Above high normal [facility] The reference range is only applicable w hen fasting. Calcium-Uncorrected 8.4-10.2 Normal (applies to non-nume marce results) [facility] Corrected Calcium 8.4-10.2 Normal (applies to non-numeri c results) [facility] Bilirubin,Total 0.2-1.3 Normal (applies to non-numeric results) [facility] SGOT(AST) 26 U/L 14-36 Normal (applies to non-numeric resul ts) [facility] SGPT(ALT) 42 U/L 9-52 Normal (applies to non-numeric resul ts) [facility] Alkaline Phosphatase 64 U/L 38-126 Normal (applies to non-num gretchen results) [facility] can increase Alkaline Phosp le vels up to 2 times the normal adult value. Normal values for children and adolescents are 2 to 3 times the normal adult value. Total Protein 6.3-8.2 Normal (applies to non-numeric re sults) [facility] Albumin 3.5-5.0 Normal (applies to non-numeric resul ts) [facility] ID Date Data Source [id number] 03/03/2020 06:05:00 PM EST [facility] Name Value Range Interpretation Code Description Data Allyson rce(s) Supporting Document(s) Lipase 47 U/L 73-393 Below low normal [facility] ID Date Data Source [id number] 03/03/2020 05:37:00 PM EST [facility] Name Value Range Interpretation Code Description Data Allyson rce(s) Supporting Document(s) White Blood Count 4.8-10.8 Normal (applies to non-numeri c results) [facility] Red Blood Count 3.68-5.22 Normal (applies to non-numeric results) [facility] Hemoglobin 11.2-15.7 Normal (applies to non-numeric resul ts) [facility] Hematocrit 34.1-44.9 Normal (applies to non-numeric resul ts) [facility] Mean Corpuscular Volume 81-99 Normal (applies to non- numeric results) [facility] Mean Corpuscular Hemoglobin 27.0-33.0 Normal (appli es to non-numeric results) [facility] Mean Corpuscular HGB Conc 32.0-36.0 Normal (applies to no n-numeric results) [facility] Red Cell Distribution Width 11.5-14.5 Normal (appli es to non-numeric results) [facility] Platelet Count 262 X10 3/uL 130-450 Normal (applies to non-numeric results) [facility] Mean Platelet Volume 9.5-12.7 Below low normal [facility] Imm Grans% (AUTO) 0 % 0-2 Normal (applies to non-numeri c results) [facility] Neutrophils % (AUTO) 58 % 40-75 Normal (applies to non-num gretchen results) [facility] Lymphocytes % (AUTO) 35 % 21-46 Normal (applies to non-num gretchen results) [facility] Monocytes % (AUTO) 5 % 5-12 Normal (applies to non-numer ic results) [facility] Eosinophils % (AUTO) 2 % 1-5 Normal (applies to non-num gretchen results) [facility] Basophils % (AUTO) 0 % 0-1 Normal (applies to non-numer ic results) [facility] Imm Grans# (AUTO) 0.0-0.5 Normal (applies to non-numeri c results) [facility] Neutrophils # (AUTO) 1.5-8.1 Normal (applies to non-num gretchen results) [facility] Lymphocytes # (AUTO) 1.0-3.1 Normal (applies to non-num gretchen results) [facility] Monocytes # (AUTO) 0.2-1.3 Normal (applies to non-numer ic results) [facility] Eosinophils# (AUTO) 0.0-0.5 Normal (applies to non-nume marce results) [facility] Basophils # (AUTO) 0.0-0.1 Normal (applies to non-numer ic results) [facility] ID Date Data Source [id number] 03/04/2020 01:13:00 PM EST [facility] Name: NAILA ERIC : 1995 Age/Sex: 24F Ordering Provider: JUS Castellanos Med Rec #: [id number] Reg Status:DEP ER Room #: Date of Service: 03/03/20 Report Number: [id number] cc: Raad Arora MD; JUS Castellanos Send Report To: Reason for exam: Baseline SINUS RHYTHM WITH SINUS ARRHYTHMIA NORMAL ECG Physician Tool Repairer: Dr. Jerel Swartz M.D. ECG HEART RATE: 89 /min ECG RR INTERVAL: 672 ms ECG P DURATION: 111 ms ECG QRS DURATION: 95 ms ECG DE INTERVAL: 159 ms ECG QT INTERVAL: 349 ms ECG QTC INTERVAL: 399 ms Q-T dispersion: ms ECG P AXIS: 42 deg ECG QRS AXIS: 35 deg ECG T AXIS: 30 deg REPORT SIGNATURE ON FILE 03/04/20 1313 Reported By: Jerel Swartz MD <<Signature on File>> Exam Date/Time: 03/03/20 7013 Order #: [id number] Dictation Date/Time: 03/04/20 1313 Transcribed Date/Time: 03/04/20 1313 Metal Machinist: FITO Name Value Range Interpretation Code Description Data Allyson rce(s) Supporting Document(s) ID Date Data Source [id number] 03/10/2020 01:10:00 PM [facility] Name: NAILA ERIC : 1995 Age/Sex: 24F Ordering Provider: DO Juma Addison Rec #: [id number] Reg Status: [facility] ER Room #: Date of Service: 03/03/20 Report Number: [id number] cc:Raad Arora MD Send Report To: [id number] XRP/XR Chest Xray Portable Reason for exam: [...] Date/Time: 03/10/20 1200 Transcribed Date/Time: 03/10/20 1310 Metal Machinist: ANGEL Name Value Range Interpretation Code Description Data Allyson rce(s) Supporting Document(s) ID Date Data Source [id number] 03/04/2020 02:22:00 PM EST [facility] Name: NAILA ERIC : 1995 Age/Sex: 24F Ordering Provider: Janna Sheriff DO Med Rec #: [id number] Reg Status:DEP ER Room #: Date of Service: 03/03/20 Report Number: [id number] cc: Raad Arora MD; Janna Sheriff DO Send Report To: Reason for exam: Palpitations SINUS RHYTHM NORMAL ECG Physician Tool Repairer: Dr. Jerel Swartz M.D. ECG HEART RATE: 72 /min ECG RR INTERVAL: 824 ms ECG P DURATION: 122 ms ECG QRS DURATION: 97 ms ECG DE INTERVAL: 173 ms ECG QT INTERVAL: 371 ms ECG QTC INTERVAL: 392 ms Q-T dispersion: ms ECG P AXIS: 35 deg ECG QRS AXIS: 34 deg ECG T AXIS: 30 deg REPORT SIGNATURE ON FILE 03/04/20 1422 Reported By: Jerel Swartz MD <<Signature on File>> Exam Date/Time: 03/03/20 1834 Order #: [id number] Dictation Date/Time: 03/04/201421 Transcribed Date/Time: 03/04/20 1422 Metal Machinist: FITO Name Value Range Interpretation Code Description Data Allyson rce(s) Supporting Document(s) ID Date Data Source [id number] 01/29/2020 12:00:00 AM EST [facility] Name Value Range Interpretation Code Description Data Allyson rce(s) Supporting Document(s) 2019-nCoV RNA XXX MARINO+probe-Imp [facility] This lab was ordered by [facility] and reported by [employer] ID Date Data Source [id number] 02/04/2020 03:03:00 PM EST [facility] Name Value Range Interpretation Code Description Data Allyson rce(s) Supporting Document(s) COVID-19, CPH TO [employer] Online[employer] Not Detected Not Detect. No rmal (applies to non- numeric results) [facility]. The COVID-19 assay has been cleared by the U.S. Food andDrug Administration under the Emergency Use Authorization(EUA). [facility] [employer] is designated as a highcomplexity laboratory by the Clinical Laboratory ImprovementAmendments of 1988 (CLIA) and is qualified to perform thistest. ASSAY INFORMATION: Real Time RT-PCR *Not Detected* Please consider re- collection of a new specimen, asclinically indicated. ID Date Data Source [id number] 02/18/2020 11:05:00 PM EST [facility] COVID-19 Specimen Source NASOPHARYNGEAL Name Value Range Interpretation Code Description Data Allyson rce(s) Supporting Document(s) SARS-CoV-2 RNA (BR) result NotDetected Pat l (applies to non-numeric results) [facility] Please consider re-collection of a new s pecimen, if clinically indicated. The COVID-19 assay is under Emergency Use Authorization (EUA) by the U.S. Food and Drug Administration. [facility] is designated as a high complexity laboratory by the Clinical Laboratory Improvement Amendments of 1988 (CLIA) and is qualified to perform this test. ASSAY INFORMATION: Real Time RT-PCR Patient samples for this assay have been pooled. All positive samples have been individually repeated for confirmation. The pooling protocol is pending FDA review. Testing Performed by: [employer] [place] [address] [place] [address] phone: Alex Magana M.D. Kitchen And Counter Worker ID Date Data Source [id number] 11/26/2019 11:39:00 AM EDT [facility] Name: NAILA ERIC [facility] Rec #: [id number] : 1995 Age/Sex: 24F Date of Service: 11/26/19 DISPOSITION SUMMARY Discharge Summary [facility] Name:Naila Eric Emergency Department Age:24 yrs Sex:Female [...] rce(s) Supporting Document(s) ID Date Data Source [id number] 11/26/2019 11:39:00 AM EDT [facility] Name: NAILA ERIC [facility] Rec #: [id number] : 1995 Age/Sex: 24F Date of Service: 11/26/19 PHYSICIAN CHART Physician Documentation [facility] Name: Naila Eric Age: 24 yrs Sex: [...] was normal she states she saw a bed worker once for this and had a normal [...] rating to the back no abdominal pain.. LEPIDOPTERIST: 11:53 LMP 08/27/2019, not unusually for her [...] he/she has never smoked tobacco. Preferred Language: Kazakh. ROS: 12:18 Constitutional: Negative for fever. Head [...] Free T4 (free Thyroxine); Complete Time: 13:17 [facility] 11/25 13:18 Interpretation: FreeT4 1.26. [facility] 11/25 12:12 Order name: [facility] Ab Panel (ref) [facility] 11/25 12:12 Order name: D-Dimer; Complete Time: 14:29 [facility] 11/25 14:29 Interpretation: D-Dimer Quant < 215. [facility] 11/25 12:51 Order name: Beta Hcg,Qualitative; Complete Time: 14:29 [facility] 11/25 14:29 Interpretation: Beta HCG,Screen Negative. [facility] 11/25 12:51 Order name: Acetaminophen Level; Complete Time: 14:29 [facility] 11/25 14:29 Interpretation: Aceta < 2.0. [facility] 11/25 12:51 Order name: ETOH; Complete Time: 14:29 [facility] 11/25 14:29 Interpretation: ETOH < 10.0. [facility] 11/25 12:51 Order name: Salicylate; Complete Time: 14:29 [facility] 11/25 14:29 Interpretation: RITA < 1.7. [facility] 11/25 12:00 Order name: Emergency Room EKG Order - Use EKG Work-Up 3 /Quick Select; Complete Time: 12:10 11/25 12:00 Order name: Cardiology EKG Interpretation - Choose Reason 3 for Test; Complete Time: 14:53 11/25 12:12 Order name: Xr Chest 2 View [PA & LAT] [facility] 11/25 12:12 Order name: Iv Saline Lock; Complete Time: 12:17 [facility] 11/25 12:12 Order name: Place Patient On Monitor; Complete Time: 12:17 [facility] 11/25 12:49 Order name: Emergency Room EKG Order - Use EKG Work-Up [facility] /Quick Select; Complete Time: 12:55 11/25 12:49 Order name: Cardiology EKG Interpretation - Choose Reason 3 for Test; Complete Time: 14:53 11/25 12:49 Order name: Echocardiogram Complete [facility] 11/25 14:30 Order name: Holter Monitoring; Complete [...] rce(s) Supporting Document(s) ID Date Data Source [id number] 11/26/2019 11:39:00 AM EDT [facility] Name: NAILA ERIC [facility] Rec #: [id number] : 1995 Age/Sex: 24F Date of Service: 11/26/19 NURSE CHART Nurse's Notes [facility] Name: Naila Eric Age: 24 yrs Sex: Female : 1995 Arrival Date: 11/26/2019 Time: 11:39 Bed 8 Private MD: Raad Arora Diagnosis: Palpitations Presentation: 11/25 11:51 Transition of care: patient was not received from another [facility] setting of care. Presenting complaint: Patient states - palpitations x 1 yr usually daily lasting few minutes to hrs weakness in arms butterflies in chest. Have you travelled in the last 30 days? No. Have you had contact with an individual with a confirmed diagnosis of Ebola or COVID-19? No. 11:51 Method Of Arrival: Walk-In [facility] 11:51 Acuity: Urgent - 3 [facility] Triage Assessment: 11:52 Suicide Screening: Have you had thoughts of harming [facility] yourself or others? No. The patient appears [...] Confirmed or Suspected Infection is awr Unknown. LEPIDOPTERIST: 11:53 LMP 08/27/2019, not unusually for her [facility] Historical: - Allergies: N Saids; - Home [...] he/she has never smoked tobacco. Preferred Language: Kazakh. Screenin:56 AUDIT 1. How often do you [...] Sheriff DO is Attending Physician. 3 12:02 radiation monitor on. Pulse on is on. NIBP [...] rce(s) Supporting Document(s) ID Date Data Source [id number] 11/30/2019 12:31:00 PM EDT [facility] Name: NAILA ERIC : [birth year] Age/Sex: 24F Ordering Provider: Janna Sheriff DO [facility] Rec #: [id number] Date of Service: 11/26/19 Report Number: [id number] cc: Raad Arora MD; Janna Sheriff DO [...] Date/Time: 11/29/19 1556 Transcribed Date/Time: 11/30/19 1231 Metal Machinist: SELWYN Name Value Range Interpretation Code Description Data Allyson rce(s) Supporting Document(s) ID Date Data Source [id number] 11/26/2019 12:49:00 PM EDT [facility] Name: NAILA ERIC : 1995 Age/Sex: 24F Ordering Provider: Janna Sheriff DO Med Rec #: [id number] Reg Status:REG ER Room #: Date of Service: 11/26/19 Report Number: [id number] cc: Raad Arora MD; Janna Sheriff DO [...] OV> Exam Date/Time: 11/26/19 1249 Order #: [id number] Dictation Date/Time: 11/26/19 1305 Transcribed Date/Time: Metal Machinist: Name Value Range Interpretation Code Description Data Allyson rce(s) Supporting Document(s) ID Date Data Source [id number] 11/26/2019 02:35:00 PM EDT [facility] Name: NAILA ERIC : 1995 Age/Sex: 24F Ordering Provider: Janna Sheriff DO Med Rec #: [id number] Reg Status:REG ER Room #: Date of Service: 11/26/19 Report Number: [id number] cc: Raad Arora MD; Janna Sheriff DO Send Report To: Reason for exam: CHEST PAIN;PALPITATIONS SINUS RHYTHM NORMAL ECG Physician Tool Repairer: Dr. Alin Smalls M.D. ECG HEART RATE: 77 /min ECG RR INTERVAL: 773 ms ECG P DURATION: 115 ms ECG QRS DURATION: 92 ms ECG DE INTERVAL: 151 ms ECG QT INTERVAL: 351 ms ECG QTC INTERVAL: 380 ms Q-T dispersion: ms ECG P AXIS: 30 deg ECG QRS AXIS: 27 deg ECG T AXIS: 17 deg REPORT SIGNATURE ON FILE 11/26/19 1435 Reported By: Alin Smalls MD <<Signature on File>> Exam Date/Time: 11/26/19 1250 Order #: [id number] Dictation Date/Time: 11/26/19 1435 Transcribed Date/Time: 11/26/19 1435 Metal Machinist: FITO Name Value Range Interpretation Code Description Data Allyson rce(s) Supporting Document(s) ID Date Data Source [id number] 11/28/2019 11:28:00 PM EDT [facility] Name Value Range Interpretation Code Description Data Allyson rce(s) Supporting Document(s) TICK Ehrlichia chaffeensis IgG <1:64 Normal (ap plies to non-numeric results) [facility] ADDITIONAL INFORMATIO N This test was developed using an analyte specific reagent. Its performance characteristics were determined by [facility] in a manner consistent with CLIA requirements. This test has not been cleared or approved by the U.S. Food and Drug Administration. TICK Anaplasma phagcytophl IgG <1:64 Normal (ap plies to non-numeric results) [facility] ADDITIONAL INFORMATIO N This test was developed using an analyte specific reagent. Its performance characteristics were determined by [facility] in a manner consistent with CLIA requirements. This test has not been cleared or approved by the U.S. Food and Drug Administration. TICK Babesia microti IgG <1:64 Normal (applies to non -numeric results) [facility] ADDITIONAL INFORMATIO N This test was developed using an analyte specific reagent. Its performance characteristics were determined by [facility] in a manner consistent with CLIA requirements. This test has not been cleared or approved by the U.S. Food and Drug Administration. TICK Lyme Disease Serology Negative Normal (applies to n on-numeric results) [facility] No evidence of antibodies to B. burgdorf tutu detected. False negative results may occur in recently infected patients (<=2 weeks) due to low or undetectable antibody levels to B. burgdorferi. If recent exposure is suspected, a second sample should be collected and tested in 2-4 weeks. Test Performed by: [facility] - [address] [address] [place] Operator: Juve Carmona M.D. Ph.D.; CLIA# [id number] ID Date Data Source [id number] 11/26/2019 02:29:00 PM EDT [facility] Name Value Range Interpretation Code Description Data Allyson rce(s) Supporting Document(s) PTT 25.1-36.5 Normal (applies to non-numeric resul ts) [facility] ID Date Data Source [id number] 11/26/2019 02:29:00 PM EDT [facility] Name Value Range Interpretation Code Description Data Allyson rce(s) Supporting Document(s) D-Dimer Quant <500 Normal (applies to non-numeric re sults) [facility] Negative for D-Dimer. This test has f ull FDA exclusion claim at a Negative cutoff value of 500 ng/mL FEU. When the d-dimer value is used in conjunction with the clinical pretest probability (PTP) assessment model to exclude DVT and PE, results less than 500 ng/mL are negative for DVT/PE. ID Date Data Source [id number] 11/26/2019 02:29:00 PM EDT [facility] Name Value Range Interpretation Code Description Data Allyson rce(s) Supporting Document(s) PT 9.4-12.5 Normal (applies to non-numeric results) [facility] INR Normal (applies to non-numeric results) [facility] The use of the INR is restricted to garret ents on stable oral anticoagulant. Therapeutic Range: 2.0-3.0 High Risk Values: 2.5-3.5 ID Date Data Source [id number] 11/26/2019 02:17:00 PM EDT [facility] Name Value Range Interpretation Code Description Data Allyson rce(s) Supporting Document(s) Salicylate 0.0-20.0 Normal (applies to non-numeric resul ts) [facility] ID Date Data Source [id number] 11/26/2019 02:17:00 PM EDT [facility] Name Value Range Interpretation Code Description Data Allyson rce(s) Supporting Document(s) Acetaminophen 10.0-30.0 Below low normal [facility] ID Date Data Source [id number] 11/26/2019 02:10:00 PM EDT [facility] Name Value Range Interpretation Code Description Data Allyson rce(s) Supporting Document(s) Ethanol Less than 10.0 Normal (applies to non-numeric r esults) [facility] ID Date Data Source [id number] 11/26/2019 02:04:00 PM EDT [facility] Name Value Range Interpretation Code Description Data Allyson rce(s) Supporting Document(s) Beta HCG Screen,Qualitative Negative Normal (appli es to non-numeric results) [facility] ID Date Data Source [id number] 11/26/2019 12:54:00 PM EDT [facility] Name Value Range Interpretation Code Description Data Allyson rce(s) Supporting Document(s) Sodium 140 mmol/L 137-145 Normal (applies to non-numeric resul ts) [facility] Potassium 3.5-5.1 Normal (applies to non-numeric resul ts) [facility] Chloride 110 mmol/L 98-112 Normal (applies to non-numeric resul ts) [facility] Carbon Dioxide CO2 22.0-33.0 Normal (applies to non-numer ic results) [facility] Anion Gap 4.0-11.0 Normal (applies to non-numeric resul ts) [facility] BUN 8 mg/dL 7-17 Normal (applies to non-numeric resul ts) [facility] Creatinine 0.70-1.20 Normal (applies to non-numeric resul ts) [facility] GFR >60 Normal (applies to non-numeric results) [facility] Result based on MDRD formula. Glucose Level 101 mg/dL 74-99 Above high normal [facility] The reference range is only applicable w hen fasting. Calcium-Uncorrected 8.4-10.2 Normal (applies to non-nume marce results) [facility] Corrected Calcium 8.4-10.2 Normal (applies to non-numeri c results) [facility] Bilirubin,Total 0.2-1.3 Normal (applies to non-numeric results) [facility] SGOT(AST) 38 U/L 14-36 Above high normal [facility] SGPT(ALT) 57 U/L 9-52 Above high normal [facility] Alkaline Phosphatase 72 U/L 38-126 Normal (applies to non-num gretchen results) [facility] can increase Alkaline Phosp le vels up to 2 times the normal adult value. Normal values for children and adolescents are 2 to 3 times the normal adult value. Total Protein 6.3-8.2 Normal (applies to non-numeric re sults) [facility] Albumin 3.5-5.0 Normal (applies to non-numeric resul ts) [facility] ID Date Data Source [id number] 11/26/2019 12:54:00 PM EDT [facility] Name Value Range Interpretation Code Description Data Allyson rce(s) Supporting Document(s) Free T4 (Free Thyroxine) 0.76-1.46 Normal (applies to non -numeric results) [facility] ID Date Data Source [id number] 11/26/2019 12:54:00 PM EDT [facility] Name Value Range Interpretation Code Description Data Allyson rce(s) Supporting Document(s) Thyroid Stimulate Hormone TSH 0.358-3.740 No rmal (applies to non-numeric results) [facility] ID Date Data Source [id number] 11/26/2019 12:54:00 PM EDT [facility] Name Value Range Interpretation Code Description Data Allyson rce(s) Supporting Document(s) Lipase 33 U/L 73-393 Below low normal [facility] ID Date Data Source [id number] 11/26/2019 12:49:00 PM EDT [facility] Name Value Range Interpretation Code Description Data Allyson rce(s) Supporting Document(s) Troponin I 0.000-0.045 Normal (applies to non-numeric resu lts) [facility] ID Date Data Source [id number] 11/26/2019 12:31:00 PM EDT [facility] Name Value Range Interpretation Code Description Data Allyson rce(s) Supporting Document(s) White Blood Count 4.8-10.8 Normal (applies to non-numeri c results) [facility] Red Blood Count 3.68-5.22 Normal (applies to non-numeric results) [facility] Hemoglobin 11.2-15.7 Normal (applies to non-numeric resul ts) [facility] Hematocrit 34.1-44.9 Normal (applies to non-numeric resul ts) [facility] Mean Corpuscular Volume 81-99 Normal (applies to non- numeric results) [facility] Mean Corpuscular Hemoglobin 27.0-33.0 Normal (appli es to non-numeric results) [facility] Mean Corpuscular HGB Conc 32.0-36.0 Normal (applies to no n-numeric results) [facility] Red Cell Distribution Width 11.5-14.5 Normal (appli es to non-numeric results) [facility] Platelet Count 268 X10 3/uL 130-450 Normal (applies to non-numeric results) [facility] Mean Platelet Volume 9.5-12.7 Below low normal [facility] Imm Grans% (AUTO) 0 % 0-2 Normal (applies to non-numeri c results) [facility] Neutrophils % (AUTO) 53 % 40-75 Normal (applies to non-num gretchen results) [facility] Lymphocytes % (AUTO) 38 % 21-46 Normal (applies to non-num gretchen results) [facility] Monocytes % (AUTO) 6 % 5-12 Normal (applies to non-numer ic results) [facility] Eosinophils % (AUTO) 2 % 1-5 Normal (applies to non-num gretchen results) [facility] Basophils % (AUTO) 1 % 0-1 Normal (applies to non-numer ic results) [facility] Imm Grans# (AUTO) 0.0-0.5 Normal (applies to non-numeri c results) [facility] Neutrophils # (AUTO) 1.5-8.1 Normal (applies to non-num gretchen results) [facility] Lymphocytes # (AUTO) 1.0-3.1 Normal (applies to non-num gretchen results) [facility] Monocytes # (AUTO) 0.2-1.3 Normal (applies to non-numer ic results) [facility] Eosinophils# (AUTO) 0.0-0.5 Normal (applies to non-nume marce results) [facility] Basophils # (AUTO) 0.0-0.1 Normal (applies to non-numer ic results) [facility] ID Date Data Source [id number] 11/26/2019 02:13:00 PM EDT [facility] Name: NAILA ERIC : 1995 Age/Sex: 24F Ordering Provider: Janna Sheriff DO Med Rec #: [id number] Reg Status: DEP ER Room #: Date of Service: 11/26/19 Report Number: [id number] cc:Raad rAora MD Send Report To: [id number] XRP/XR Chest 2 View [Pa & Lat] [...] Date/Time: 11/26/19 1235 Transcribed Date/Time: 11/26/19 1413 Metal Machinist: ANGEL Name Value Range Interpretation Code Description Data Allyson rce(s) Supporting Document(s) ID Date Data Source [id number] 11/26/2019 02:35:00 PM EDT [facility] Name: NAILA ERIC : 1995 Age/Sex: 24F Ordering Provider: Janna Sheriff DO Med Rec #: [id number] Reg Status:REG ER Room #: Date of Service: 11/26/19 Report Number: [id number] cc: Raad Arora MD; Janna Sheriff DO Send Report To: Reason for exam: Palpitations SINUS RHYTHM NORMAL ECG Physician Tool Repairer: Dr. Alin Smalls M.D. ECG HEART RATE: 97 /min ECG RR INTERVAL: 617 ms ECG P DURATION: 116 ms ECG QRS DURATION: 89 ms ECG DE INTERVAL: 154 ms ECG QT INTERVAL: 337 ms ECG QTC INTERVAL: 401 ms Q-T dispersion: ms ECG P AXIS: 34 deg ECG QRS AXIS: 23 deg ECG T AXIS: 18 deg REPORT SIGNATURE ON FILE 11/26/19 1435 Reported By: Alin Smalls MD <<Signature on File>> Exam Date/Time: 11/26/19 1202 Order #: [id number] Dictation Date/Time: 11/26/191434 Transcribed Date/Time: 11/26/19 143 Metal Machinist: FITO Name Value Range Interpretation Code Description Data Allyson rce(s) Supporting Document(s) Procedure Social History Code Duration Value Status Description Data Source(s ) Alcohol intake 11/25/2020 12:00:00 AM EDT Ex-drinker (finding) comp leted Ex- drinker (finding) [facility] Alcohol intake 10/14/2020 12:00:00 AM EDT Ex-drinker (finding) comp leted Ex- drinker (finding) [facility] Tobacco use and exposure 09/25/2020 12:00:00 AM EDT Never used co mpleted Never used [facility] Smoking 09/25/2020 12:00:00 AM EDT Never smoker completed Never s moker [facility] Alcohol intake 09/25/2020 12:00:00 AM EDT Ex-drinker (finding) comp leted Ex- drinker (finding) [facility] Smoking 07/31/2020 12:00:00 AM EDT Never Smoker completed Never S moker eCW1 ([facility]) Smoking 07/31/2020 12:00:00 AM EDT Never Smoker completed Never S moker eCW1 ([facility]) Smoking 07/31/2020 12:00:00 AM EDT Never Smoker completed Never S moker eCW1 ([facility] Smoking 07/31/2020 12:00:00 AM EDT Never Smoker completed Never S moker eCW1 ([facility]) Smoking 07/31/2020 12:00:00 AM EDT Never Smoker completed Never S moker eCW1 ([facility] Smoking 07/31/2020 12:00:00 AM EDT Never Smoker completed Never S moker eCW1 ([facility]) Smoking 07/31/2020 12:00:00 AM EDT Never Smoker completed Never S moker eCW1 ([facility]) Vital Signs ID Date Data Source UNK Name Value Range Interpretation Code Description Data Source(s) Systolic blood pressure 132 mm[Hg] 132 mm[Hg] [facility] Diastolic blood pressure 60 mm[Hg] 60 mm[Hg] [facility] Heart rate 92 /min 92 /min [facility] Respiratory rate 19 /min 19 /min [facility] Body height 165.1 cm 165.1 cm [facility] Body weight 91.627 kg 91.627 kg [facility] Body mass index (BMI) [Ratio] 33.61 kg/m2 33.61 kg/m2 [facility] Oxygen saturation in Arterial blood by Pulse oximetry 98 % 98 % [facility] Body weight 91.173 kg 91.173 kg [facility] Body mass index (BMI) [Ratio] 33.45 kg/m2 33.45 kg/m2 [facility] Oxygen saturation in Arterial blood by Pulse oximetry 98 % 98 % [facility] Systolic blood pressure 104 mm[Hg] 104 mm[Hg] [facility] Diastolic blood pressure 70 mm[Hg] 70 mm[Hg] [facility] Heart rate 89 /min 89 /min [facility] Body height 165.1 cm 165.1 cm [facility] Systolic blood pressure 110 mm[Hg] 110 mm[Hg] [facility] Diastolic blood pressure 70 mm[Hg] 70 mm[Hg] [facility] Heart rate 98 /min 98 /min [facility] Body height 165.1 cm 165.1 cm [facility] Body weight 92.08 kg 92.08 kg [facility] Body mass index (BMI) [Ratio] 33.78 kg/m2 33.78 kg/m2 [facility] Oxygen saturation in Arterial blood by Pulse oximetry 99 % 99 % [facility] Body mass index (BMI) [Ratio] 34.63 kg/m2 34.63 kg/m2 eCW1 ([facility]) Heart rate 80 /min 80 /min eCW1 ([facility]) Body weight 214.6 [lb_av] 214.6 [lb_av] [facility] ([facility] Body height 66.0 [in_i] 66.0 [in_i] eCW1 ([facility]) Systolic blood pressure 108 mm[Hg] 108 mm[Hg] e CW1 ([facility]) Diastolic blood pressure 78 mm[Hg] 78 mm[Hg] eCW1 ([facility]) Body mass index (BMI) [Ratio] 34.63 kg/m2 34.63 kg/m2 eCW1 ([facility]) Heart rate 80 /min 80 /min eCW1 ([facility]) Body weight 214.6 [lb_av] 214.6 [lb_av] eCW1 ([facility]) Body height 66.0 [in_i] 66.0 [in_i] eCW1 ([facility]) Systolic blood pressure 108 mm[Hg] 108 mm[Hg] e CW1 ([facility]) Diastolic blood pressure 78 mm[Hg] 78 mm[Hg] eCW1 ([facility]) Body mass index (BMI) [Ratio] 35.02 kg/m2 35.02 kg/m2 eCW1 ([facility]) Heart rate 80 /min 80 /min eCW1 ([facility]) Body weight 217.0 [lb_av] 217.0 [lb_av] eCW1 ([facility]) Body height 66.0 [in_i] 66.0 [in_i] eCW1 ([facility]) Systolic blood pressure 101 mm[Hg] 101 mm[Hg] e CW1 ([facility]) Diastolic blood pressure 70 mm[Hg] 70 mm[Hg] eCW1 ([facility]) Body mass index (BMI) [Ratio] 37.34 kg/m2 37.34 kg/m2 eCW1 ([facility]) Body temperature 98.5 [degF] 98.5 [degF] eCW1 ( [facility]) Heart rate 98 /min 98 /min eCW1 ([facility]) Body weight 231.4 [lb_av] 231.4 [lb_av] eCW1 ([facility]) Body height 66.0 [in_i] 66.0 [in_i] eCW1 ([facility]) Systolic blood pressure 122 mm[Hg] 122 mm[Hg] e CW1 ([facility]) Diastolic blood pressure 90 mm[Hg] 90 mm[Hg] eCW1 ([facility]) Body weight 245.00 [lb_av] 245.00 [lb_av] MEDEN [...] (BMI) [Ratio] 38.05 kg/m2 38.05 kg/m2 eCW1 ([facility]) Heart rate 72 /min 72 /min eCW1 ([facility]) Body weight 235.8 [lb_av] 235.8 [lb_av] eCW1 ([facility]) Body height 66.0 [in_i] 66.0 [in_i] eCW1 ([facility]) Systolic blood pressure 120 mm[Hg] 120 mm[Hg] e CW1 ([facility]) Diastolic blood pressure 90 mm[Hg] 90 mm[Hg] eCW1 ([facility]) Patient Treatment Plan of Care Planned Activity Planned Date Details Description Data Source (s) Cyclobenzaprine hydrochloride 5 MG Oral Tablet 10/09/2020 12:00:00 AM EDT [facility] Docusate Sodium 100 MG Oral Capsule [DOK] 10/02/2020 12:00:00 AM ED T [facility] ferrous gluconate 324 MG Oral Tablet 10/02/2020 12:00:00 AM EDT [facility] 24 HR metoprolol succinate 25 MG Extended Release Oral Tablet 09/17/2020 12:00:00 AM EDT [facility] Metoprolol Succinate 25 MG 12/06/2019 12:00:00 AM EDT eCW1 ([facility]) Metoprolol Succinate 25 MG 12/06/2019 12:00:00 AM EDT eCW1 ([facility]) Metoprolol Succinate 25 MG 12/06/2019 12:00:00 AM EDT eCW1 ([facility]) Metoprolol Succinate 25 MG 12/06/2019 12:00:00 AM EDT eCW1 ([facility]) Metoprolol Succinate 25 MG 12/06/2019 12:00:00 AM EDT eCW1 ([facility]) Metoprolol Succinate 25 MG 12/06/2019 12:00:00 AM EDT eCW1 ([facility]) Metoprolol Succinate 25 MG 12/06/2019 12:00:00 AM EDT eCW1 ([facility])
[2021-01-13] MEDS ORDERED: ACETAMINOPHEN 325 MG TAB PO ONE (23:10)
[2021-01-13] MEDS ORDERED: NS 1,000 ML IV ONE (23:10)
[2021-01-13] MEDS ORDERED: ONDANSETRON 4MG/2ML VIAL IV ONE (23:10)
== END 2021-01-14 00:02 | disposition left against medical advice (07) ==
LOC: M ED 21:50
DX: Z53.21 Procedure and treatment not carried out due to patient leaving prior to being seen by health care provider (principal)

== ENCOUNTER → 2021-02-17 | Outpatient (CLI) | payer OTHER ==
[2021-02-17 13:34] LABS: HEMATOCRIT 34.2 % (36.0-47.0); HEMOGLOBIN 11.4 g/dl (12.0-15.5); MEAN CORPUSCULAR HEMOGLOBIN 29.6 pg (27.0-33.0); MEAN CORPUSCULAR HGB CONC 33.3 g/dl (32.0-36.5); MEAN CORPUSCULAR VOLUME 88.8 fl (80.0-96.0); PLATELET COUNT, AUTOMATED 238 10^3/uL (150-450); RED BLOOD COUNT 3.85 10^6/uL (4.00-5.40); WHITE BLOOD COUNT 10.6 10^3/uL (4.0-10.0)
== END ==
LOC: M PLALAB 09:24
PROVIDERS: ATTEND Obstetrics & Gynecology
DX: Z34.03 Encounter for supervision of normal first pregnancy, third trimester (principal); Z3A.35 35 weeks gestation of pregnancy
CPT/HCPCS: 36415; 85027; 87081; G0463

== ENCOUNTER 2021-03-10 05:46 | Outpatient (CLI) | payer OTHER ==
[~2021-03-10] VITALS: Ht 165.1 cm; Wt 93.6 kg
[2021-03-10] VITALS (7 sets, daily range): BP systolic 100–121; BP diastolic 57–83
[2021-03-10] MEDS ORDERED: IRON65TA2 PO (07:44)
[2021-03-10] MEDS ORDERED: MM S100C PO (07:44)
== END 2021-03-10 12:00 | disposition home or self-care (01) ==
LOC: M LDO 05:46
PROVIDERS: ATTEND Advanced Practice Midwife
DX: O60.03 Preterm labor without delivery, third trimester (principal); O26.853 Spotting complicating pregnancy, third trimester; Z3A.38 38 weeks gestation of pregnancy

== ENCOUNTER 2021-03-10 20:16 | Inpatient (IN) | payer OTHER ==
[~2021-03-10] VITALS: Ht 165.1 cm; Wt 92.3 kg
[~2021-03-10 20:16] MED LIST changes: +IRON65TA2 PO; +MM S100C PO
[2021-03-10 20:55] VITALS: BP 107/77
[2021-03-10 21:23] LABS: HEMATOCRIT 38.2 % (36.0-47.0); HEMOGLOBIN 13.1 g/dl (12.0-15.5); MEAN CORPUSCULAR HEMOGLOBIN 29.8 pg (27.0-33.0); MEAN CORPUSCULAR HGB CONC 34.3 g/dl (32.0-36.5); MEAN CORPUSCULAR VOLUME 86.8 fl (80.0-96.0); PLATELET COUNT, AUTOMATED 210 10^3/uL (150-450)
[2021-03-10] MEDS: ONDANSETRON 4MG/2ML VIAL IV SCH (21:30)
[2021-03-10] MEDS ORDERED: PROMETHAZINE INJ 25 MG/ML VIAL (J2550) IV ONE (21:40)
[2021-03-10] MEDS ORDERED: BUTORPHANOL 2 MG/ML INJ (J0595) IV ONE (21:40)
[2021-03-10 21:58] VITALS: BP 118/70
[2021-03-10 22:58] VITALS: BP 102/58
[2021-03-11] VITALS (39 sets, daily range): BP systolic 90–144; BP diastolic 50–81
[2021-03-11] MEDS ORDERED: OXYTOCIN DRIP 30 UNITS in IV 1 EA IV SCH ×2 (01:35→14:30)
[2021-03-11] MEDS: ONDANSETRON 4MG/2ML VIAL IV SCH (03:30)
[2021-03-11] MEDS ORDERED: FENTANYL 2MCG/ML ROPIVACAINE 0.2% IN 0.9% NACL 100ML IVBAG As Ordered ONE (05:02)
[2021-03-11] MEDS ORDERED: REFRIGERATOR IV KEYS XX PRN (05:14)
[2021-03-11] MEDS ORDERED: diphenhydrAMINE 50MG/ML VIAL (J1200) IV PRN (05:14)
[2021-03-11] MEDS ORDERED: NALOXONE INJ 0.4MG/1ML VIAL (J2310 PER 1MG) IV PRN (05:14)
[2021-03-11] MEDS ORDERED: ONDANSETRON 4MG/2ML VIAL IV PRN ×2 (05:14→16:35)
[2021-03-11] MEDS ORDERED: EPIDURAL/PCA KEYS XX PRN (05:14)
[2021-03-11] MEDS ORDERED: EPIDURAL COMMENT XX SCH (05:14)
[2021-03-11] MEDS ORDERED: FENTANYL/ROPIVACAINE/NACL BAG 100 ML EPIDURAL SCH (05:14)
[2021-03-11] MEDS ORDERED: LACTATED RINGER'S 1000 ML IV PRN (05:14)
[2021-03-11] MEDS ORDERED: METOPROLOL SUCC *XL* 25MG TAB (TopROL *XL*) PO SCH (06:30)
[2021-03-11] MEDS: LR 1,000 ML IV SCH ×2 (07:04→09:42)
[2021-03-11] MEDS: ePHEDrine SULFATE 25 MG/5 ML(5MG/ML) SYRINGE IV PRN ×2 (07:07→07:10)
[2021-03-11 14:15] LABS: CORD GAS ABE V -12.4; CORD GAS HCO3 V 13.8 MEQ/L; CORD GAS O2 SAT V 75.2 %; CORD GAS PCO2 V 33.2 mmHg; CORD GAS PH V 7.236 UNITS; CORD GAS PO2 V 35.6 mmHg; CORD GAS SBC V 14.7 MEQ/L; CORD GAS TCO2 V 14.8 MEQ/L
[2021-03-11] MEDS ORDERED: ACETAMINOPHEN TAB 650MG DOSE (2X325MG) PO PRN (14:30)
[2021-03-11] MEDS ORDERED: MEASLES,MUMPS,RUBELLA VACCINE INJ (MMR-II) (90707) SC SCH (14:30)
[2021-03-11] MEDS ORDERED: DIBUCAINE 1% OINTMENT 30GM TOP PRN (14:30)
[2021-03-11] MEDS ORDERED: RHOGAM 300 MCG (1500 IU) INJ (J2790) IM SCH (14:30)
[2021-03-11] MEDS ORDERED: METHYLERGONOVINE MALEATE 0.2 MG TAB PO PRN (14:30)
[2021-03-11] MEDS ORDERED: ONDANSETRON 4MG/2ML VIAL As Ordered ONE (16:38)
[2021-03-11] MEDS: ACETAMINOPHEN 500 MG TAB PO PRN ×2 (17:53→23:19)
[2021-03-11] MEDS: METOPROLOL SUCC *XL* 25MG TAB (TopROL *XL*) PO SCH (21:00)
[2021-03-11] MEDS: DOCUSATE SODIUM 100MG CAPSULE PO PRN (21:55)
[2021-03-12 06:00] VITALS: BP 101/55
[2021-03-12] MEDS: PRENATAL VITAMINS CHEWABLE TABLET PO SCH (08:08)
[2021-03-12] MEDS: ACETAMINOPHEN 500 MG TAB PO PRN (17:42)
[2021-03-12 18:05] VITALS: BP 112/72
[2021-03-12] MEDS: DOCUSATE SODIUM 100MG CAPSULE PO PRN (20:30)
[2021-03-12 20:31] VITALS: BP 118/74
[2021-03-12] MEDS: METOPROLOL SUCC *XL* 25MG TAB (TopROL *XL*) PO SCH (20:31)
[2021-03-13] MEDS: ACETAMINOPHEN 500 MG TAB PO PRN ×3 (04:24→18:48)
[2021-03-13 06:00] VITALS: BP 103/57
[2021-03-13] MEDS: PRENATAL VITAMINS CHEWABLE TABLET PO SCH (08:23)
[2021-03-13 18:00] VITALS: BP 104/66
[2021-03-13] MEDS ORDERED: ACET-683 PO (18:40)
== END 2021-03-13 19:57 | disposition home or self-care (01) | DRG 807 ==
LOC: M LDO 20:16 → M LDI 20:39 → M OBS 03-11 17:06
PROVIDERS: ADMIT Specialist; ATTEND Advanced Practice Midwife
PROC: 10E0XZZ Delivery of Products of Conception, External Approach (ICD-10-PCS; principal; 2021-03-11)
DX: O80 Encounter for full-term uncomplicated delivery (principal); Z37.0 Single live birth; Z3A.38 38 weeks gestation of pregnancy